=== PATIENT | female | born 1960 | race Caucasian/White ===

== ENCOUNTER → 2019-09-14 13:20 | Outpatient (BNVA) | payer MEDICARE, MEDICAID, SELFPAY | PROVIDERS: Family Provider Family Medicine; PCP Family Medicine; Visit Provider Psychiatry & Neurology Psychiatry | DX: F41.1 Generalized anxiety disorder (principal); F33.2 Major depressive disorder, recurrent severe without psychotic features; F43.12 Post-traumatic stress disorder, chronic; F12.10 Cannabis abuse, uncomplicated | CPT/HCPCS: 99204 ==

== ENCOUNTER → 2019-10-20 11:41 | Outpatient (BNVA) | payer MEDICARE, MEDICAID, SELFPAY | PROVIDERS: Family Provider Family Medicine; PCP Family Medicine; Visit Provider Psychiatry & Neurology Psychiatry | DX: F12.10 Cannabis abuse, uncomplicated (principal); F43.12 Post-traumatic stress disorder, chronic; F33.2 Major depressive disorder, recurrent severe without psychotic features; F41.1 Generalized anxiety disorder | CPT/HCPCS: 99213 ==

== ENCOUNTER 2019-12-27 16:30 | Emergency (ER) | payer MEDICARE, MEDICAID, SELFPAY ==
[2019-12-27 16:39] VITALS: BP 122/72; PULSE 97; RESP 18; TEMP 36.5; O2SAT 96; BMI 36.3
--- NOTE | 2019-12-27 16:44 | W.ED.BACK ---
HPI - Back Pain/Injury General: Chief Complaint: Back Pain/Injury Stated Complaint: fell 12/25,back pain Time Seen by Provider: 12/27/19 16:39 History of Present Illness: HPI Narrative: Lauren is a 59-year-old female who comes in complaining of low back pain. She fell several feet down onto their low back. She has complaints of pain along the lower lumbar spine. There is no radiation of her pain, distal numbness or weakness or saddle anesthesia. She denies loss of bowel or bladder control. She states that the pain is unbearable. She denies being on blood thinners, head injury, neck injury or other complaints. She does states she has a history of severe back pain and degenerative disc disease. Associated symptoms: Deny abdominal pain, chills, difficulty walking, dysuria, fatigue, fever(s), hematuria, nausea, syncope, urinary urgency or vomiting Review of Systems Const: Denies: fever(s), chills, body aches, fatigue, malaise or diaphoresis Eyes: Denies: change in vision, blurry vision, blind spots or photophobia ENMT: Denies: throat pain, odynophagia, hoarseness, swelling of lips/tongue, ear or mastoid pain, ear discharge, change in hearing or nasal discharge Card: Denies: chest pain, palpitations, irregular heart rhythm, edema, lightheadedness, syncope, pre-syncope, dyspnea on exertion or orthopnea Resp: Denies: dyspnea, productive cough, non-productive cough, wheezing, hemoptysis or chest congestion GI: Denies: abdominal pain, nausea, vomiting, hematemesis, coffee ground emesis, heartburn, diarrhea, constipation, GI cramping, hematochezia or melena : Denies: flank pain, dysuria, urinary frequency, urinary urgency or hematuria Musc: Reports: back pain; Denies: neck pain, extremity pain, extremity swelling, joint pain, joint swelling, joint redness, joint warmth or joint stiffness Skin/Breast: Denies: rash, pruritus, erythema, skin tenderness or jaundice Neuro: Denies: headache(s), numbness in extremities, weakness in extremities, sensory changes, lack of coordination, difficulty walking, dizziness, vertigo, confusion or Slurred speech present Jamel/Lymph: Denies: easy bruising, easy bleeding, petechiae, purpura or enlarged lymph nodes All/Imm: Denies: urticaria, throat swelling, tongue swelling, facial swelling or acute wheezing PFSH ED PFSH: Medical History Cannabis use disorder, mild, abuse Degenerative disc disease Generalized anxiety disorder Major depressive disorder, recurrent severe without psychotic features Post-traumatic stress disorder, chronic Social History Smoking and tobacco status: current every day smoker cigarettes Packs smoked per day: 1 Years cigarettes smoked: 25 Quit status (tobacco): has tried quititng Number of times tried to quit tobacco: 1 Second hand smoke exposure: Yes Smoking risk assessment/counseling performed?: Yes Tobacco counseling given: counseling >3 minutes Current gender identity: Female Physical Exam Const: COMMON NORMALS: no acute distress, patient oriented x3, no limitations, healthy appearing and well nourished GENERAL APPEARANCE: cooperative, well kempt and well developed HENMT: COMMON NORMALS: normocephalic, atraumatic, external ears normal, EAC's normal and Normal external nose present HEAD & SCALP: normal to inspection, normocephalic and atraumatic FACE & SINUS: normal facial exam and face symmetric NOSE: Normal external nose present and Normal nares present EXTERNAL EAR: Yes external ears normal EXTERNAL AUDITORY CANAL: EAC's normal MOUTH: Normal oral and palatal mucosa present, lip normal and tongue normal Eye: COMMON NORMALS: Equal, round and reactive pupils present and conjunctivae normal GENERAL EYE: appearance normal, both eyes and all related structures ALIGNMENT: Yes alignment normal PERIORBITAL: periorbital findings normal EYELID: eyelids normal CONJUNCTIVA: Yes conjunctivae normal SCLERA: sclerae normal PUPIL: Yes Equal, round and reactive pupils present Neck/C-Spine: COMMON NORMALS: full ROM, no lymphadenopathy, supple, no meningeal signs and no JVD GENERAL: Yes normal visual inspection and Yes trachea midline Chest: COMMONS NORMALS: normal inspection of the chest and normal palpation of entire chest wall Resp: COMMON NORMALS: normal respiratory effort, No retractions and No use of accessory muscles EFFORT & INSPECTION: Yes able to speak in complete sentences and Yes symmetric chest movement AUSCULTATION: no crackles, no rales, no rhonchi and no wheezes Cardio: COMMON NORMALS: no JVD, regular rate, regular rhythm, S1 normal heart sound present and S2 normal heart sound present RATE: regular rate RHYTHM: regular rhythm HEART SOUNDS: S1 normal heart sound present, S2 normal heart sound present, no click, no gallops, no murmurs, no rubs and abnormal split S2 GI: COMMON NORMALS: Soft to palpation and No hepatosplenomegaly present PALPATION: Yes Soft to palpation, No Tenderness to palpation present (GI), No Guarding due to palpation present (GI), No Rigid due to palpation, Yes No hepatosplenomegaly present, No Hernia present, No Palpable mass present and No Pulsatile mass present : COMMON NORMALS: Yes no CVA tenderness BLADDER/KIDNEY EXAM: Yes no CVA tenderness EXTERNAL FEMALE EXAM: No Hernia present Back/Pelvis: COMMON NORMALS: no CVA tenderness THORACIC SPINE/UPPER BACK: Yes normal to inspection LUMBAR SPINE/LOWER BACK: Yes ROM limited, Yes paraspinal muscle tenderness and Yes paraspinal muscle spasm OTHER: Mild tenderness to palpation of the lower lumbar spine. Normal deep tendon reflexes at the knee and ankle. No clonus present. Negative straight raise leg test bilaterally. Negative contralateral straight leg raising test. Muscle strength 5 out of 5 to bilateral lower extremities at all joints. Patient able to ambulate without difficulty. Extremity: COMMON NORMALS: normal to inspection, full ROM, capillary refill normal, no joint enlargement, no clubbing, cyanosis or edema and no calf tenderness Neuro: COMMON NORMALS: patient oriented x3, CN's II-XII intact bilaterally, moves all extremities, no focal motor deficits and no sensory deficits noted MENINGEAL SIGNS: Yes no meningeal signs SPEECH: speech normal Psych: COMMON NORMALS: mental status grossly normal, Normal thought process present, cooperative, normal affect, speech normal and activity/motor behavior normal APPEARANCE: Yes well kempt SPEECH: Yes normal speech THOUGHT PROCESS: Normal thought process present Skin: COMMON NORMALS: no rashes or lesions noted, turgor normal, no jaundice, no petechiae and no mottling GENERAL SKIN EXAM: no rashes or lesions noted and turgor normal Course Vital Signs: Vital signs: Vital Signs Temperature 97.7 F 12/27/19 16:39 Pulse Rate 75 12/27/19 18:13 Respiratory Rate 18 12/27/19 18:13 Blood Pressure 104/63 12/27/19 18:13 Pulse Oximetry 95 12/27/19 18:13 MDM - Back Pain/Injury MDM Narrative: Medical decision making narrative: Lauren is a nice 59-year-old female who comes in complaining of low back pain after she slipped and fell and landed on her bottom. From further description of the fall it sounds more like a twisting straining type injury rather than a true contusion. Nonetheless CT reveals no evidence of compression fracture or any acute fracture. She does have degenerative changes but nothing acute. On palpation the patient's primary pain is in the bilateral paralumbar spinal musculature. She has no focal point tenderness in the midline. I see no sign of CRAFTI as a cause for her symptoms. Patient agrees to take pain medicine and muscle relaxers at home for her pain. She agrees to return should her symptoms change or worsen at all. I did advise her not to take her tizanidine while she was taking Flexeril and she verbalized her understanding. Imaging Data^: CT Lumbar Spine: Radiologist's impression: [place] [address] CT Scan Report Signed Patient: Lauren Espinoza Unit #: [id number] : 1960 Age/Sex: 59 / F ADM Date: 12/27/19 Loc: ER Room/Bed: Attending Dr: Ordering Provider/Ordering MD: Mireya Vanessa DO Date of Service: 12/27/19 Procedure(s): CT lumbar spine wo con* [id number] Accession Number(s): [id number] Report Number: [id number] PROCEDURE INFORMATION: Exam: CT Lumbar Spine Without Contrast Exam date and time: 12/27/2019 4:55 PM Age: 59 years old Clinical indication: Injury or trauma; Fall; Initial encounter; Blunt trauma (contusions or hematomas); Injury details: H/o degenerative disc disease; Additional info: Fall/injury TECHNIQUE: Imaging protocol: Computed tomography images of the lumbar spine without contrast. Radiation optimization: All CT scans at this facility use at least one of these dose optimization techniques: automated exposure control; mA and/or kV adjustment per patient size (includes targeted exams where dose is matched to clinical indication); or iterative reconstruction. COMPARISON: CR Lumbar Spine 2-3 views* [id number] 12/19/2018 3:33 PM RADIATION DOSE METRICS: Total DLP: 2521.62 mGy-cm FINDINGS: Vertebrae: No visible fracture, subluxation, or dislocation. Levoscoliosis. Intraosseous cavernous hemangioma L4 vertebral body. Facet arthrosis most advanced self 5/S1 on the left. Discs/Spinal canal/Neural foramina: Degenerative disease and degenerative disc disease with spondylosis deformans most advanced L5/S1 with disc space height loss. No visible herniated nucleus pulposis or significant posterior disc bulge would result in significant central canal stenosis or visible evidence of neural foraminal encroachment. Vasculature: The abdominal aorta is nonaneurysmal but demonstrates moderate arterial sclerotic disease. Soft tissues: Unremarkable. CT/CT lumbar spine wo con* [id number] IMPRESSION: 1. No visible fracture, subluxation, or dislocation. 2. Degenerative disease and degenerative disc disease with spondylosis deformans. 3. Levoscoliosis. Radiation Dose CTDIVOL = (mGy): DLP = 2521.62 (mGy-cm) Dictated By: Osman Thomas Signed By: Osman Thomas Signed Date/Time: 12/27/191723 DD/ 22 Discharge Plan Discharge Patient Disposition: Home, Self-Care Clinical Impression: Strain of lumbar region Qualifiers: Encounter type: initial encounter Qualified Code(s): S39.012A - Strain of muscle, fascia and tendon of lower back, initial encounter Condition: Stable Prescriptions: New cyclobenzaprine 10 mg tablet 10 mg PO TID PRN (Reason: muscle spasm) Qty: 30 RF: 0 [place] 5-325 mg tablet 1 tab PO Q6H PRN (Reason: pain) 5 Days Qty: 8 RF: 0 No Action albuterol sulfate 1.25 mg/3 mL solution for nebulization 1.25 mg INHALATION QID PRN (Reason: Shortness Of Breath) RF: 0 omeprazole magnesium 20 mg tablet,delayed release (DR/EC) 20 mg PO DAILY RF: 0 hydroxyzine HCl 50 mg tablet 50 mg PO TID PRN (Reason: nausea and vomiting) RF: 0 ibuprofen 600 mg tablet 600 mg PO TID PRN (Reason: fever or pain) RF: 0 Flovent HFA 44 mcg/actuation HFA aerosol inhaler 2 puff INHALATION BID RF: 0 gabapentin 600 mg tablet 600 mg PO .Five times daily PRN (Reason: UNKNOWN) RF: 0 duloxetine [Cymbalta] 60 mg capsule,delayed release(DR/EC) 60 mg PO DAILY Qty: 30 RF: 2 lamotrigine 100 mg tablet 100 mg PO DAILY Qty: 30 RF: 2 trazodone 100 mg tablet 300 mg PO .HS Qty: 90 RF: 2 cetirizine 10 mg tablet 10 mg PO DAILY RF: 0 tizanidine 4 mg tablet See Rx Instructions .ROUTE .COMPLEX RF: 0 Ventolin HFA 90 mcg/actuation Hfa Aerosol Inhaler 2 puff INHALATION Q6H PRN (Reason: Shortness Of Breath) RF: 0 Discharge Orders: Discharge Order (Routine); Ordered 12/27/19 Ordered By: Mireya Vanessa Referrals: Alberto Davenport MD [Primary Care Provider] - 1-3 days Discharge Diet: Advance as tolerated Discharge Activity: Increase activity as tolerated Patient Instructions: Low Back Strain (ED) Activity Restrictions/Additional Instructions: Please return to the ER immediately for any of the signs or symptoms listed on your discharge instruction sheets, worsening/changing of your symptoms, you are not getting better as quickly as expected, or for ANY other cause or concerns. Return to the ER for increased pain, loss of bowel or bladder control, fever, vomiting, any new injuries develop, or for any other cause for concern. Do not take your tizanidine while taking Flexeril. The 2 combined can cause significant interactions. Do not resume your tizanidine until your Flexeril has been completed. Discharge Date/Time: 12/27/19 18:18 Coding Level of Care Code ED [employer] for [employer] Fwd Exam Comprehensive
[2019-12-27] MEDS: HYDROcodone-acetaminophen 5-325 mg Tablet 1 TAB PO (16:58)
[2019-12-27] MEDS: ketorolac 60 mg/2 mL INJ IM (18:08)
[2019-12-27 18:13] VITALS: BP 104/63; PULSE 75; RESP 18; O2SAT 95
== END 2019-12-27 18:18 | disposition home or self-care (01) ==
PROVIDERS: Emergency Provider Emergency Medicine; Family Provider Family Medicine; PCP Family Medicine
DX: S39.012A Strain of muscle, fascia and tendon of lower back, initial encounter (principal); W19.XXXA Unspecified fall, initial encounter; F17.210 Nicotine dependence, cigarettes, uncomplicated
CPT/HCPCS: 12345; 72131; 96372; 99281; 99283; J1885

== ENCOUNTER 2020-03-27 11:25 | Emergency (ER) | payer MEDICARE, MEDICAID, SELFPAY ==
[2020-03-27 11:34] VITALS: BP 143/106; PULSE 88; RESP 18; TEMP 36.6; O2SAT 96; BMI 36.7
--- NOTE | 2020-03-27 11:51 | W.ED.BACK ---
HPI - Back Pain/Injury General: Chief Complaint: Back Pain/Injury Stated Complaint: back pain Time Seen by Provider: 03/27/20 11:31 Source: patient Mode of arrival: ambulatory Limitations: no limitations History of Present Illness: MD elicited complaint: back pain Pertinent past history: prior back pain Onset (ago): day(s) (1) Timing: constant and progressively worsening Severity: severe Similar Symptoms Previously: Yes Quality: sharp Location: right lower back and left lower back Radiation: left upper leg and right upper leg Exacerbating factors: sitting upright and walking Relieving factors: none Context: while lifting Associated symptoms: Deny abdominal pain, arthralgias, chills, change in bowel habits, difficulty walking, dysuria, fatigue, fecal incontinence, fever(s), hematuria, myalgias, nausea, numbness, syncope, tingling/numbness/burning, urinary frequency, urinary urgency, vomiting or weakness Treatments prior to arrival: heat therapy and NSAIDS Review of Systems General: Reports: 10 or more systems reviewed and unremarkable except in HPI and below Const: Denies: fever(s), chills or fatigue Eyes: Denies: change in vision or blurry vision ENMT: Denies: throat pain, enlarged tonsils, odynophagia, hoarseness, mouth pain or swelling of lips/tongue Card: Denies: syncope Resp: Denies: dyspnea, productive cough or non-productive cough GI: Denies: abdominal pain, nausea, vomiting, fecal incontinence or change in bowel habits : Denies: dysuria, urinary urgency or hematuria Musc: Reports: back pain; Denies: neck pain or extremity swelling Skin/Breast: Denies: rash, pruritus or erythema Neuro: Denies: difficulty walking Endo: Denies: polyuria, polydipsia or tired all the time PENDING SALE TO [facility] ED PFSH: Medical History Cannabis use disorder, mild, abuse Degenerative disc disease Generalized anxiety disorder Major depressive disorder, recurrent severe without psychotic features Post-traumatic stress disorder, chronic Social History Smoking and tobacco status: current every day smoker cigarettes Packs smoked per day: 1 Years cigarettes smoked: 25 Quit status (tobacco): has tried quititng Number of times tried to quit tobacco: 1 Second hand smoke exposure: Yes Smoking risk assessment/counseling performed?: Yes Tobacco counseling given: counseling >3 minutes Current gender identity: Female Physical Exam Const: COMMON NORMALS: average body habitus, patient oriented x3, no limitations, healthy appearing, alert and well nourished GENERAL APPEARANCE: in distress HENMT: COMMON NORMALS: normocephalic, atraumatic and moist oral mucous membranes HEAD & SCALP: normocephalic and atraumatic Neck/C-Spine: COMMON NORMALS: no meningeal signs and no JVD Resp: COMMON NORMALS: normal respiratory effort, No retractions, No use of accessory muscles, clear to auscultation bilaterally and percussion normal AUSCULTATION: clear to auscultation bilaterally PERCUSSION: percussion normal Cardio: COMMON NORMALS: no JVD, regular rate, regular rhythm, S1 normal heart sound present, S2 normal heart sound present, No gallops present (Cardio), No clicks present (Cardio), No murmurs present (Cardio), No rub (Cardio) and Peripheral pulses 2+ throughout RATE: regular rate RHYTHM: regular rhythm HEART SOUNDS: S1 normal heart sound present and S2 normal heart sound present PERIPHERAL PULSES: Peripheral pulses 2+ throughout GI: COMMON NORMALS: Normal to inspection, nondistended, normoactive bowel sounds present, Soft to palpation, non-tender, No hepatosplenomegaly present, no masses and no bruits PALPATION: Yes Soft to palpation and Yes No hepatosplenomegaly present Back/Pelvis: SACROILIAC JOINTS: Yes SI joint(s) abnormal SI joint details: tender to palpation (Bilateral) Extremity: COMMON NORMALS: normal to inspection, full ROM, capillary refill normal, no calf tenderness and no pedal edema Neuro: COMMON NORMALS: patient oriented x3 SENSORIUM/ORIENTATION: Yes alert MENINGEAL SIGNS: Yes no meningeal signs Skin: COMMON NORMALS: no rashes or lesions noted, no wounds, turgor normal, no jaundice, no petechiae and no mottling GENERAL SKIN EXAM: no rashes or lesions noted and turgor normal Course Reevaluation(s): Reevaluation #1: Pain resolved she is ready to be discharged home. She will be discharged home with oral steroids and some pain medicine. She is advised to follow-up with her primary care provider. She voiced understanding and is in agreement with the plan. Time: 14:20 Vital Signs: Vital signs: Vital Signs Temperature 97.8 F 03/27/20 11:34 Pulse Rate 81 03/27/20 14:44 Respiratory Rate 18 03/27/20 14:44 Blood Pressure 138/92 03/27/20 14:44 Pulse Oximetry 96 03/27/20 14:44 MDM - Back Pain/Injury MDM Narrative: Medical decision making narrative: Patient who presents to the emergency department with clinical features consistent with bilateral sacroiliitis. She obtain significant improvement following Toradol and Norflex injections. She is discharged home with a prescription for oral steroids and some pain medication. Medical Records: Attestation: I reviewed the patient's medical records. Discharge Plan Discharge Patient Disposition: Home Clinical Impression: Bilateral sacroiliitis Condition: Stable Prescriptions: New [place] 5-325 mg tablet 1 tab PO Q8H PRN (Reason: pain) Qty: 12 RF: 0 prednisone 20 mg tablet 40 mg PO DAILY 5 Days Qty: 10 RF: 0 Continued albuterol sulfate 1.25 mg/3 mL solution for nebulization 1.25 mg INHALATION QID PRN (Reason: Shortness Of Breath) RF: 0 omeprazole magnesium 20 mg tablet,delayed release (DR/EC) 20 mg PO DAILY RF: 0 hydroxyzine HCl 50 mg tablet 50 mg PO TID PRN (Reason: nausea and vomiting) RF: 0 ibuprofen 600 mg tablet 600 mg PO TID PRN (Reason: fever or pain) RF: 0 Flovent HFA 44 mcg/actuation HFA aerosol inhaler 2 puff INHALATION BID RF: 0 gabapentin 600 mg tablet 600 mg PO .Five times daily PRN (Reason: UNKNOWN) RF: 0 duloxetine [Cymbalta] 60 mg capsule,delayed release(DR/EC) 60 mg PO DAILY Qty: 30 RF: 2 lamotrigine 100 mg tablet 100 mg PO DAILY Qty: 30 RF: 2 trazodone 100 mg tablet 300 mg PO .HS Qty: 90 RF: 2 cetirizine 10 mg tablet 10 mg PO DAILY RF: 0 tizanidine 4 mg tablet See Rx Instructions .ROUTE .COMPLEX RF: 0 Ventolin HFA 90 mcg/actuation Hfa Aerosol Inhaler 2 puff INHALATION Q6H PRN (Reason: Shortness Of Breath) RF: 0 cyclobenzaprine 10 mg tablet 10 mg PO TID PRN (Reason: muscle spasm) Qty: 30 RF: 0 Discharge Orders: Discharge Order (Routine); Ordered 03/27/20 Ordered By: Musa Strong Referrals: Alberto Davenport MD [Primary Care Provider] - 4-7 days Discharge Diet: Usual diet Discharge Activity: Increase activity as tolerated Patient Instructions: Sacroiliitis (ED) Activity Restrictions/Additional Instructions: Return for any new or worsening symptoms. Follow-up with your primary care provider within 1 week. Take medications as prescribed. Rest your back for 1 or 2 days before gradually returning to your prior level of activity. Discharge Date/Time: 03/27/20 14:44 Coding Level of Care Code ED Press Feeder [employer] for Chg Fwd Exam Comprehensive
[2020-03-27 12:26] VITALS: PULSE 79; RESP 18; O2SAT 97
[2020-03-27] MEDS: ketorolac 30 mg/mL INJ IM (12:29)
[2020-03-27] MEDS: orphenadrine 30 mg/mL Inj 2 mL 60 MG IM (12:30)
[2020-03-27 14:44] VITALS: BP 138/92; PULSE 81; RESP 18; O2SAT 96
== END 2020-03-27 14:44 | disposition home or self-care (01) ==
PROVIDERS: Emergency Provider Family Medicine; PCP Family Medicine
DX: M46.1 Sacroiliitis, not elsewhere classified (principal); F17.210 Nicotine dependence, cigarettes, uncomplicated
CPT/HCPCS: 12345; 96372; 99282; 99283; J1885; J2360

== ENCOUNTER 2020-04-28 12:29 | Outpatient (CLI) | payer MEDICARE, MEDICAID, SELFPAY ==
--- NOTE | 2020-04-28 13:06 | XR_ITS ---
WS: [id number] LATERAL LUMBAR SPINE: 3 view. Lateral radiographs are performed in upright neutral, flexion and extension to the patient's toleranc e. HISTORY: Spondylolisthesis. COMPARISON: None available. Straightening of the normal lumbar lordosis. 2 mm retrolisthesis of L4. No fractures. Mild disc space narrowing. With flexion and extension is very little movement of the vertebral bodies. Multilevel mi ld facet joint arthritis. Osteopenia. Prior cholecystectomy. XR/XR lumbar spine f/e only [id number] IMPRESSION: 1. Mild retrolisthesis of L4 with no instability. 2. Diffuse osteopenia and moderate spondylitic changes.
== END 2020-04-28 12:30 | disposition home or self-care (01) ==
LOC: RADWPI 12:34
PROVIDERS: PCP Family Medicine; Visit Provider Nurse Practitioner
DX: M43.16 Spondylolisthesis, lumbar region (principal); M85.88 Other specified disorders of bone density and structure, other site
CPT/HCPCS: 72120

== ENCOUNTER 2021-11-18 18:37 | Emergency (ER) | payer MEDICARE, MEDICAID, SELFPAY ==
[2021-11-18 18:48] VITALS: BP 128/79; PULSE 80; RESP 20; TEMP 36.7; O2SAT 94; BMI 36.7
--- NOTE | 2021-11-18 19:17 | CTR_ITS ---
PROCEDURE INFORMATION: Exam: CT Lumbar Spine Without Contrast Exam date and time: 11/18/2021 7:49 PM Age: 61 years old Clinical indication: Low back pain; Additional info: Lumbar back pain w/ pain in left leg. Left leg weakness TECHNIQUE: Imaging protocol: Computed tomography images of the lumbar spine without contrast. Radiation optimization: All CT scans at this facility use at least one of these dose optimization techniques: automated exposure control; mA and/or kV adjustment per patient size (includes targeted exams where dose is matched to clinical indication); or iterative reconstruction. COMPARISON: CT lumbar spine wo con* [id number] 12/27/2019 4:56 PM RADIATION DOSE METRICS: Total DLP (mGy-cm): 2020. FINDINGS: Vertebrae: L4 vertebral body hemangioma appears benign. L1-L2: L1-L2 small broad-based disc bulge with minimal spinal canal narrowing. L2-L3: L2-L3 small broad-based disc bulge with minimal spinal canal and bilateral foraminal narrowing. L3-L4: L3-L4 small broad-based disc bulge with mild spinal canal and bilateral foraminal narrowing L4-L5: L4-L5 broad-based disc bulge with moderate to severe spinal canal and bilateral foraminal narrowing. L5-S1: L5/S1 broad-based disc bulge with mild bilateral foraminal narrowing. Soft tissues: Unremarkable. CT/CT lumbar spine wo con* [id number] IMPRESSION: Multilevel degenerative disc space disease with varying amounts of spinal canal and neural foraminal narrowing as described.
--- NOTE | 2021-11-18 19:18 | W.ED.BACK ---
HPI - Back Pain/Injury General: Chief Complaint: Back Pain/Injury Stated Complaint: back pain Time Seen by Provider: 11/18/21 18:59 History of Present Illness: Patient is a 61-year-old female comes to the ED with acute on chronic lower back pain. Patient says that 3 days ago she was cleaning up a mess her cat made on the floor. She was bending over and scraping up stuff off the floor says she felt a sharp pain in her lower back. Since then she is now having 9 out of 10 pain in the lower back. Pain radiates down left leg. She endorses having some mild left leg weakness mostly due to the pain. Denies any pelvic anesthesia or bladder or bowel incontinence. Patient sees Dr. Davenport and he is currently trying to get her set up with pain management clinic to help manage her chronic lower back pain. Associated symptoms: Deny abdominal pain, chills, dysuria, fatigue, fever(s), hematuria, nausea or vomiting Review of Systems Const: Denies: fever(s), chills or fatigue Eyes: Denies: change in vision or eye discomfort ENMT: Denies: throat pain, odynophagia, nasal discharge or nasal congestion Card: Denies: chest pain, palpitations, edema, swelling of feet/ankles, dyspnea on exertion or orthopnea Resp: Denies: dyspnea, productive cough or non-productive cough GI: Denies: abdominal pain, nausea, vomiting, diarrhea, constipation or hematochezia : Denies: flank pain, dysuria or hematuria Musc: Reports: back pain; Denies: neck pain or extremity swelling Skin/Breast: Denies: rash or new lesions Neuro: Denies: headache(s), numbness in extremities or weakness in extremities PFSH ED PFSH: Medical History Cannabis use disorder, mild, abuse Degenerative disc disease Generalized anxiety disorder Major depressive disorder, recurrent severe without psychotic features Post-traumatic stress disorder, chronic Social History Smoking and tobacco status: current every day smoker cigarettes Packs smoked per day: 1 Years cigarettes smoked: 25 Quit status (tobacco): has tried quititng Number of times tried to quit tobacco: 1 Second hand smoke exposure: Yes Smoking risk assessment/counseling performed?: Yes Tobacco counseling given: counseling >3 minutes Current gender identity: Female Physical Exam Const: COMMON NORMALS: no acute distress, patient oriented x3 and alert GENERAL APPEARANCE: cooperative and comfortable HENMT: COMMON NORMALS: normocephalic HEAD & SCALP: normocephalic MOUTH: Normal oral and palatal mucosa present THROAT: posterior oropharynx normal and uvula midline Neck/C-Spine: COMMON NORMALS: supple GENERAL: Yes normal visual inspection Resp: COMMON NORMALS: normal respiratory effort, No retractions, No use of accessory muscles and clear to auscultation bilaterally AUSCULTATION: clear to auscultation bilaterally Cardio: COMMON NORMALS: regular rate, regular rhythm, S1 normal heart sound present, S2 normal heart sound present, No gallops present (Cardio), No clicks present (Cardio), No murmurs present (Cardio) and Peripheral pulses 2+ throughout RATE: regular rate RHYTHM: regular rhythm HEART SOUNDS: S1 normal heart sound present and S2 normal heart sound present PERIPHERAL PULSES: Peripheral pulses 2+ throughout GI: COMMON NORMALS: Normal to inspection, nondistended, normoactive bowel sounds present, Soft to palpation, non-tender and no masses PALPATION: Yes Soft to palpation : COMMON NORMALS: Yes no CVA tenderness BLADDER/KIDNEY EXAM: Yes no CVA tenderness Back/Pelvis: COMMON NORMALS: no CVA tenderness LUMBAR SPINE/LOWER BACK: Yes lumbar spinal tenderness Lumbar spinal tenderness location: L4 and L5 and Yes paraspinal muscle tenderness Lumbar paraspinal muscle tenderness: bilateral Bilateral lumbar paraspinal muscle tenderness: L3, L4 and L5 Extremity: COMMON NORMALS: normal to inspection and no pedal edema Neuro: COMMON NORMALS: patient oriented x3 and moves all extremities SENSORIUM/ORIENTATION: Yes alert Skin: GENERAL SKIN EXAM: dry skin Course Vital Signs: Vital signs: Vital Signs Temperature 98.1 F 11/18/21 18:48 Pulse Rate 72 11/18/21 20:49 Respiratory Rate 18 11/18/21 20:49 Blood Pressure 128/78 11/18/21 20:49 Pulse Oximetry 96 11/18/21 20:49 MDM - Back Pain/Injury Medical Decision Making Patient is a 61-year-old female comes to the ED with lower back pain that radiates down left leg. Patient has a history of degenerative disc disease. Endorses having a little bit of left leg weakness due to pain. Denies any bladder or bowel incontinence or pelvic anesthesia. Vitals are stable. Patient appears nontoxic in no acute distress or pain. She has some lumbar spinal tenderness around L4 and L5 along with lumbar paraspinal muscle tenderness bilaterally from L3-L5. CT of lumbar spine showed multilevel degenerative disc space disease with varying spinal canal and neural foraminal narrowing. I placed an order with case management for patient to be referred to Dr. Cabral for further evaluation of degenerative disc disease and lumbar spine. Patient was given dose of morphine, steroid and muscle relaxer here in the ED to help with symptoms. She was diagnosed with degenerative disc disease in the lumbar spine and was discharged home with a prescription for muscle relaxer, steroid and meloxicam for pain. Return to ED precautions given. Patient was told case management will contact them in the next several days set up an appoint with Dr. Cabral for further evaluation of lumbar pain. Patient understood and agreed with plan. Labs Radiology Impressions Lumbar Spine CT 11/18/21 19:17 IMPRESSION: Multilevel degenerative disc space disease with varying amounts of spinal canal and neural foraminal narrowing as described. Discharge Plan Discharge Patient Disposition: Home Clinical Impression: Degenerative disc disease Qualifiers: Spinal region: lumbar Qualified Code(s): M51.36 - Other intervertebral disc degeneration, lumbar region Condition: Stable Prescriptions: New meloxicam 15 mg tablet 15 mg PO DAILY Qty: 20 0RF methocarbamol 750 mg tablet 750 mg PO Q8H PRN (Reason: Muscle spasms and pain) Qty: 20 0RF prednisone 20 mg tablet 20 mg PO BID 5 Days Qty: 10 0RF No Action albuterol sulfate 1.25 mg/3 mL solution for nebulization 1.25 mg INHALATION QID PRN (Reason: Shortness Of Breath) 0RF omeprazole magnesium 20 mg tablet,delayed release (DR/EC) 20 mg PO DAILY 0RF hydroxyzine HCl 50 mg tablet 50 mg PO TID PRN (Reason: nausea and vomiting) 0RF ibuprofen 600 mg tablet 600 mg PO TID PRN (Reason: fever or pain) 0RF Flovent HFA 44 mcg/actuation HFA aerosol inhaler 2 puff INHALATION BID 0RF gabapentin 600 mg tablet 600 mg PO .Five times daily PRN (Reason: UNKNOWN) 0RF duloxetine [Cymbalta] 60 mg capsule,delayed release(DR/EC) 60 mg PO DAILY Qty: 30 2RF lamotrigine 100 mg tablet 100 mg PO DAILY Qty: 30 2RF trazodone 100 mg tablet 300 mg PO .HS Qty: 90 2RF cetirizine 10 mg tablet 10 mg PO DAILY 0RF tizanidine 4 mg tablet See Rx Instructions .ROUTE .COMPLEX 0RF Rx Instructions: 4 mg orally TAKE 1 AND 1/2 TAB TID PRN FOR MUSCLE SPASMS. Ventolin HFA 90 mcg/actuation Hfa Aerosol Inhaler 2 puff INHALATION Q6H PRN (Reason: Shortness Of Breath) 0RF cyclobenzaprine 10 mg tablet 10 mg PO TID PRN (Reason: muscle spasm) Qty: 30 0RF [place] 5-325 mg tablet 1 tab PO Q8H PRN (Reason: pain) Qty: 12 0RF Discharge Orders: Discharge ED (Routine); Ordered 11/18/21 Ordered By: Michel Power Referrals: Alberto Davenport MD [Primary Care Provider] - Discharge Diet: Regular Discharge Activity: Increase activity as tolerated Patient Instructions: Degenerative Disc Disease (ED) Activity Restrictions/Additional Instructions: Follow-up with medical provider as directed. Case management will be contacted in the next several days set up an appointment with Dr. Cabral the orthospine specialist for follow-up. Take medications as prescribed. Meloxicam can be taken instead of your ibuprofen but do not take both medications daily. Methocarbamol is a muscle relaxer and can cause some drowsiness so take at night before going to bed. Return to the ER or your medical provider if condition worsens. Please read and understand discharge instructions. Thank you for choosing [facility] for your healthcare needs today. Please realize this is an emergency room and that we are providing you with a medical screening exam and this may not be complete and all inclusive of all the testing and or work up that you may need to determine your ailment or severity of your illness. It is very important that you follow up as instructed or that you return to the Emergency Department should you have concerns or if your condition changes or worsens in any way. Coding Level of Care Code ED Cyber Incident Handler for Evangelista Gallagher Exam Comprehensive
[2021-11-18] MEDS: morphine 4 mg/mL SDV 1 mL IM (19:36)
[2021-11-18] MEDS: orphenadrine 30 mg/mL Inj 2 mL 60 MG IM (19:36)
[2021-11-18] MEDS: dexamethasone 10 mg/mL INJ IM (19:36)
[2021-11-18 20:28] VITALS: BP 125/81; PULSE 67; RESP 16; O2SAT 95
[2021-11-18 20:49] VITALS: BP 128/78; PULSE 72; RESP 18; O2SAT 96
--- NOTE | 2021-11-19 14:15 | DCPLANNER ---
Addendum entered by Yoli Kulkarni 11/22/21 16:23: Patient had a follow up appointment scheduled with ortho - patient did attend appointment. Original Note: branch services manager had message to schedule a follow up appointment for patient with ortho. branch services manager sent patients information to the front office staff at ortho. Patients information will be printed and reviewed. Clinic will call patient with appointment information.
== END 2021-11-18 20:52 | disposition home or self-care (01) ==
PROVIDERS: Emergency Provider Physician Assistant; PCP Family Medicine
DX: M51.36 Other intervertebral disc degeneration, lumbar region (principal); F17.210 Nicotine dependence, cigarettes, uncomplicated
CPT/HCPCS: 72131; 96372; 99283; J1100; J2270; J2360

== ENCOUNTER → 2021-11-22 10:56 | Outpatient (BNVA) | payer MEDICARE, MEDICAID, SELFPAY | PROVIDERS: PCP Family Medicine; Referring Provider Physician Assistant; Visit Provider Physician Assistant | DX: M47.26 Other spondylosis with radiculopathy, lumbar region (principal); M51.36 Other intervertebral disc degeneration, lumbar region | CPT/HCPCS: 72110; 99204; 99999 ==

== ENCOUNTER 2022-01-25 13:07 | Outpatient (CLI) | payer MEDICARE, MEDICAID, SELFPAY ==
--- NOTE | 2022-01-25 | MR_ITS ---
WS: [id number] MRI LUMBAR SPINE NONCONTRAST HISTORY: Low back pain down LEFT leg. COMPARISON: 12/14/2015 TECHNIQUE: Sagittal and axial multisequence imaging is submitted. T4 hemangioma. Mild straightening and LEFT curvature of the lumbar spine. Fatty marrow replacement involving the end plates of L3 and L4. No fracture. Disc space narrowing and desiccation throughout the lumbar spine. Conus terminates normally at L1-2 disc level. L1-L2: Diffuse annular disc bulge with a central disc protrusion and mild osteophytosis. Encroachment upon the ventral thecal sac slightly progressed since the prior study. Mild foraminal narrowing. L2-L3: Diffuse annular disc bulging with mild ligamentum flavum hypertrophy. RIGHT facet encroachment into the RIGHT subarticular recess. Mild stenosis the RIGHT subarticular recess and bilateral forami na. Progressed since the prior study. L3-L4: Diffuse annular disc bulging with disc and osteophyte encroaching of the thecal sac. Mild cent ral stenosis. RIGHT facet joint arthritis encroaching into the RIGHT thecal sac and subarticular rece ss. Moderate RIGHT subarticular recess stenosis and encroachment upon the exiting L4 nerve root. Mild central and bilateral foraminal stenosis. L4-L5: Diffuse asymmetric disc bulging and mild osteophytic ridging. Broad-based disc protrusion cent ral to LEFT paracentral and into the foramen. Encroachment upon the thecal sac and subarticular reces ses. Moderate central and bilateral subarticular recess stenosis. Greater encroachment into the LEFT lateral recess. Moderate facet joint arthritis contributing to the stenosis. Moderate to severe LEFT and mild RIGHT foraminal stenosis. Progression of stenosis since the prior study. L5-S1: Mild disc bulging. Asymmetric disc bulging to the LEFT. Moderate to severe LEFT foraminal sten osis due to asymmetric disc bulging. Disc contacts the exiting LEFT L5 nerve root. Paravertebral soft tissues are normal. MR/MR lumbar spine wo con* [id number] IMPRESSION: 1. Progression of degenerative LEFT scoliosis and degenerative disc disease an d facet arthritis since 12/14/2015. 2. Moderate central and bilateral subarticular recess stenosis at L4-5 with gr eater encroachment into the LEFT lateral recess. Moderate to severe LEFT and mi ld RIGHT foraminal stenosis at L4-5. Significant encroachment upon the traversi ng L5 nerve roots but greatest on the LEFT. 3. Moderate RIGHT subarticular recess stenosis at L3-4 with encroachment upon the exiting L4 nerve root. 4. Mild central and bilateral foraminal stenosis at L3-4. 5. Moderate to severe LEFT foraminal stenosis at L5-S1 with disc contacting th e exiting LEFT L5 nerve root. 6. Facet joint arthropathy encroaching into the RIGHT subarticular recess at L 2-3 causing a mild stenosis of the RIGHT subarticular recess and RIGHT foramen.
== END 2022-01-25 13:08 | disposition home or self-care (01) ==
PROVIDERS: PCP Family Medicine; Visit Provider Physician Assistant
DX: M48.061 Spinal stenosis, lumbar region without neurogenic claudication (principal)
CPT/HCPCS: 72148

== ENCOUNTER → 2022-01-31 14:01 | Outpatient (BNVA) | payer MEDICARE, MEDICAID, SELFPAY | PROVIDERS: PCP Family Medicine; Visit Provider Physician Assistant | DX: M51.36 Other intervertebral disc degeneration, lumbar region (principal); M47.26 Other spondylosis with radiculopathy, lumbar region; M48.062 Spinal stenosis, lumbar region with neurogenic claudication | CPT/HCPCS: 99213 ==

== ENCOUNTER → 2022-03-05 09:45 | Outpatient (BNVA) | payer MEDICARE, MEDICAID, SELFPAY | PROVIDERS: PCP Family Medicine; Visit Provider Anesthesiology Pain Medicine | DX: M48.062 Spinal stenosis, lumbar region with neurogenic claudication (principal); M51.36 Other intervertebral disc degeneration, lumbar region; M47.26 Other spondylosis with radiculopathy, lumbar region; M47.816 Spondylosis without myelopathy or radiculopathy, lumbar region; M79.604 Pain in right leg; M79.605 Pain in left leg; M41.9 Scoliosis, unspecified; F17.210 Nicotine dependence, cigarettes, uncomplicated; Z79.891 Long term (current) use of opiate analgesic | CPT/HCPCS: 99205 ==

== ENCOUNTER → 2022-03-20 13:46 | Outpatient (BNVA) | payer MEDICARE, MEDICAID, SELFPAY | PROVIDERS: PCP Family Medicine; Visit Provider Anesthesiology Pain Medicine | DX: M48.062 Spinal stenosis, lumbar region with neurogenic claudication (principal); F17.210 Nicotine dependence, cigarettes, uncomplicated; M54.16 Radiculopathy, lumbar region | CPT/HCPCS: 64483; 64484 ==

== ENCOUNTER → 2022-04-04 13:46 | Outpatient (BNVA) | payer MEDICARE, MEDICAID, SELFPAY | PROVIDERS: PCP Family Medicine; Visit Provider Anesthesiology Pain Medicine | DX: M54.16 Radiculopathy, lumbar region (principal); M48.062 Spinal stenosis, lumbar region with neurogenic claudication; F17.210 Nicotine dependence, cigarettes, uncomplicated | CPT/HCPCS: 64483; 64484; J1100; J3490 ==

== ENCOUNTER → 2022-04-16 08:28 | Outpatient (BNVA) | payer MEDICARE, MEDICAID, SELFPAY | PROVIDERS: PCP Family Medicine; Visit Provider Anesthesiology Pain Medicine | DX: M48.062 Spinal stenosis, lumbar region with neurogenic claudication (principal); M51.36 Other intervertebral disc degeneration, lumbar region; M47.26 Other spondylosis with radiculopathy, lumbar region; M41.9 Scoliosis, unspecified; M47.816 Spondylosis without myelopathy or radiculopathy, lumbar region; M79.604 Pain in right leg; M79.605 Pain in left leg; F17.210 Nicotine dependence, cigarettes, uncomplicated | CPT/HCPCS: 99213 ==

== ENCOUNTER → 2022-06-04 14:01 | Outpatient (BNVA) | payer MEDICARE, MEDICAID, SELFPAY | PROVIDERS: PCP Family Medicine; Visit Provider Physician Assistant | DX: M48.062 Spinal stenosis, lumbar region with neurogenic claudication (principal); M41.9 Scoliosis, unspecified; M51.36 Other intervertebral disc degeneration, lumbar region | CPT/HCPCS: 99214 ==

== ENCOUNTER 2022-07-05 06:43 | Outpatient (CLI) | payer MEDICARE, MEDICAID, SELFPAY ==
--- NOTE | 2022-07-05 | USCV_ITS ---
Transthoracic Echo Lauren Espinoza Age: 62 Gender: F : 1960 Exam Date: 07/05/2022 07:02 Ordering Phys: Alberto Davenport MD Technologist: Mikayla Lama Exam Location: [facility] [place] Indication: Heart Murmur BP: 168 / 80 HR: 72 Rhythm: Sinus Technical Quality: Adequate MEASUREMENTS (Male / Female) Normal Values 2D ECHO LV Diastolic Diameter PLAX 5.2 cm 4.2 - 5.9 / 3.9 - 5.3 cm LV Systolic Diameter PLAX 4.0 cm LV Chamber Size 5.2 cm IVS Diastolic Thickness 0.9 cm 0.6 - 1.0 / 0.6 - 0.9 cm IVS Systolic Thickness 1.7 cm LVPW Diastolic Thickness 1.5 cm 0.6 - 1.0 / 0.6 - 0.9 cm LVPW Systolic Thickness 1.8 cm RV Chamber Size 3.1 cm LVOT Diameter 2.0 cm LV Ejection Fraction 2D Teich 36.8 % LV Ejection Fraction MOD 2C 61.8 % LV Ejection Fraction 2C AL 61.2 % LA Diameter 2.9 cm LA Width 2.4 cm LA Height 3.0 cm RA Width 3.2 cm Aorta at Sinotubular Diameter 3.1 cm IVC Diameter 1.6 cm M-MODE Aortic Annulus Diameter 3.8 cm LA Ao Ratio MM 0.8 MV E Point Septal Separation 0.4 cm DOPPLER AV Peak Velocity 158.0 cm/s LVOT Peak Velocity 102.0 cm/s AV Area Cont Eq vti 2.5 cm squared AV Area Cont Eq pk 2.1 cm squared MV Area PHT 4.2 cm squared Mitral E to A Ratio 1.2 MV E' Velocity 54.5 cm/s Mitral E to MV E' Ratio 15.4 Mitral E to LV E' Lateral Ratio 16.6 Mitral E to LV E' Septal Ratio 14.3 TR Peak Velocity 219.0 cm/s TR Peak Gradient 19.2 mmHg TR Mean Velocity 176.3 cm/s TR Mean Gradient 12.5 mmHg TR Velocity Time Integral 66.1 cm TV Peak E Velocity 67.0 cm/s Right Atrial Pressure 3.0 mmHg Pulmonary Artery Systolic Pressu 22.2 mmHg PV Peak Velocity 71.0 cm/s RV Acceleration Time 0.2 s RV Ejection Time 0.3 s RV AcT/ET 0.5 FINDINGS Left Ventricle Normal left ventricular size, systolic function and wall thickness, with no regional wall motion abnormalities,mild left ventricular hypertrophy. EF 67 %. Right Ventricle Normal right ventricular size and systolic function. Right Atrium Normal right atrial size. Left Atrium Normal left atrial size. Mitral Valve Structurally normal mitral valve. Trace mitral valve regurgitation. Aortic Valve Structurally bufbjidti-yh-umjialvb aortic valve regurgitation. l trileaflet aortic valve. Mild aortic valve calcification. Tricuspid Valve Structurally normal tricuspid valve. No tricuspid valve regurgitation. Pulmonic Valve Structurally normal pulmonic valve. No pulmonary valve regurgitation. Pericardium No pericardial effusion. Aorta Normal aorta. IVC Normal inferior vena cava. CONCLUSIONS Normal left ventricular size, systolic function and wall thickness, with no regional wall motion abnormalities,mild left ventricular hypertrophy. EF 67 %. Structurally wphgphvya-hg-allmztvl aortic valve regurgitation. l trileaflet aortic valve. Mild aortic valve calcification. Ramiro Fuentes MD (Electronically Signed) Final Date: 05 July 2022 13:12 S
== END 2022-07-05 06:44 | disposition home or self-care (01) ==
PROVIDERS: PCP Family Medicine; Visit Provider Family Medicine
DX: R01.1 Cardiac murmur, unspecified (principal); I35.1 Nonrheumatic aortic (valve) insufficiency
CPT/HCPCS: 93306

== ENCOUNTER 2022-07-08 16:07 | Inpatient (IN) | payer MEDICARE, MEDICAID, SELFPAY ==
[2022-07-05 09:17] VITALS: BMI 35.5
--- NOTE | 2022-07-05 09:22 | ANES.PREANE2 ---
Pre-Anesthetic Assessment Height/Weight: Height 1.52 m Weight 82.554 kg Operation Date: 07/08/22 12:40 Proposed Procedures p Spinal Fusion [id number]/M48.062/M41.9/M51.36/(Not Applicable) - Otto Cabral DO s Lumbar Spine Decompression(Not Applicable) - Otto Cabral, DO Familial anesthetic complications: None Social Tobacco and No alcohol Exam alert, oriented x 3, clear to auscultation bilaterally and regular rate & rhythm Airway Mallampati: Class II Dentition: false and partials Pulmonary Asthma and Sleep Apnea CV/HEM None reported None reported Hepatic None reported GI Gastroesophageal Reflux Disease Metabolic None reported Musc/skel Lower Back Pain Neuropsych None reported Anesthetic Plan ASA status: 3 Anesthesia: General Risk of > 500 ml blood loss (7ml/kg in children): Yes, adequate IV access and fluids planned Medications/Allergies Home Medications Medication Instructions Recorded Confirmed Last Taken Type fluticasone propionate 44 2 puff inhalation BID 09/14/19 07/05/22 07/04/22 History mcg/actuation HFA aerosol inhaler (Flovent HFA) gabapentin 600 mg tablet 600 mg PO .Five times daily PRN 10/19/19 07/05/22 07/05/22 History UNKNOWN duloxetine 60 mg capsule,delayed 60 mg PO DAILY #30 caps 10/20/19 07/05/22 07/05/22 Rx release (Cymbalta) lamotrigine 100 mg tablet 100 mg PO DAILY #30 tabs 10/20/19 07/05/22 07/05/22 Rx albuterol sulfate 90 mcg/actuation 2 puff inhalation Q6H PRN 12/27/19 06/04/22 12/27/19 History aerosol inhaler (Ventolin HFA) Shortness Of Breath tizanidine 4 mg tablet See Rx Instructions .Route .COMPLEX 12/27/19 07/05/22 07/04/22 History methocarbamol 750 mg tablet 750 mg PO Q8H PRN Muscle spasms 11/18/21 07/05/22 07/05/22 Rx and pain #20 tabs meloxicam 15 mg tablet 15 mg PO DAILY #60 tabs 01/01/22 07/05/22 07/05/22 Rx MARIJUANA inhalation 03/05/22 06/04/22 Unknown History hydrocodone 5 mg-acetaminophen 325 1 tab PO Q4H PRN pain 5 days #30 07/01/22 07/05/22 07/05/22 Rx mg tablet tabs brexpiprazole 2 mg tablet (Rexulti) 2 mg PO DAILY 07/05/22 07/05/22 07/05/22 History duloxetine 30 mg capsule,delayed 30 mg PO DAILY 07/05/22 07/05/22 07/05/22 History release montelukast 10 mg tablet 10 mg PO DAILY 07/05/22 07/05/22 07/05/22 History pantoprazole 40 mg tablet,delayed 40 mg PO BID 07/05/22 07/05/22 07/05/22 History release trazodone 100 mg tablet 150 mg PO .HS 07/05/22 07/05/22 07/04/22 History Allergies Allergy/AdvReac Type Severity Reaction Status Date / Time No Known Allergies Allergy Verified 07/05/22 08:56 [facility] Anesthesia Medical History Cannabis use disorder, mild, abuse Degenerative disc disease Generalized anxiety disorder Major depressive disorder, recurrent severe without psychotic features Post-traumatic stress disorder, chronic Social History Smoking and tobacco status: current every day smoker cigarettes Packs smoked per day: 1 Years cigarettes smoked: 25 Quit status (tobacco): has tried quititng Number of times tried to quit tobacco: 1 Smoking risk assessment/counseling performed?: Yes Tobacco counseling given: counseling >3 minutes Alcohol intake: former History of recent travel: No Current gender identity: Female Data Anesthesia Cardiac Studies: No Data to Display
[2022-07-08] VITALS (34 sets, daily range): BP systolic 86–147; BP diastolic 58–104; PULSE 78–115; RESP 13–29; TEMP 36.4–36.6; O2SAT 81–98; BMI 37.5
--- NOTE | 2022-07-08 | XR_ITS ---
WS: [id number] Exam: XR lumbar spine 1V [id number] Date/Time of Exam: 07/08/2022 12:00 AM Reason For Exam: CAR PICS Single lateral intraoperative image of the lower thoracic and lumbar spine depicts multiple pedicle s crews in place. No other significant finding on this limited image.
[2022-07-08] MEDS: sodium chloride 0.9% 1,000 ML 30 ML IV (10:40)
[2022-07-08 10:49] LABS: Basophils % 0.7 %; Eosinophils # 0.1 10^3/uL (0.0-0.8); Eosinophils % 2.5 %; Hematocrit 39.2 % (37.0-47.0); Hemoglobin 12.8 g/dL (11.5-15.3); Lymphocytes # 2.1 10^3/uL (0.8-4.8); Lymphocytes % 37.3 %; Mean Corpuscular HGB Conc 32.7 g/dL (30.0-36.0); Mean Corpuscular Hemoglobin 30.2 pg (28.0-34.0); Mean Corpuscular Volume 92.5 fl (81-99); Mean Platelet Volume 9.3 fL (7.4-10.4); Monocytes # 0.3 10^3/uL (0.2-0.9); Monocytes % 4.7 %; Neutrophils % 54.4 %; Nucleated Red Blood Cells % 0 %; Platelet Count 175 10^3/cmm (130-400); Red Blood Count 4.24 10^6/uL (4.1-5.3); Red Cell Distribution Width 12.6 % (12.1-15.1); White Blood Count 5.7 10^3/uL (4.0-10.0)
--- NOTE | 2022-07-08 11:00 | P.HP_ITS ---
Providers/Chief Complaint Primary Care Provider: Alberto Davenport MD Chief Complaint: Spinal Fusion [id number] History of Present Illness Lauren Espinoza is a 62 year old female She states injections doesn't seem to be helping, she only get a weeks worth of relief. She rates her pain the first week 0/10 then she goes back to 10/10. She has stabbing radiating down bilateral legs. More left than right. She states she does her stretches at home. She had an MRI of her lumbar 01/25/22. She had a CT in November of this year.? Patient states due to the pain she has been unable to walk any distance her activity levels have decreased significantly due to the pain in her back and legs.? She rates her pain today at an 8/10.? Reports both legs are bothering her equally in addition to her low back.? She denies any loss of bowel or bladder control. Review of Systems Const: Denies: fever(s), chills, body aches, fatigue or change in sleep pattern Eyes: Denies: change in vision Musc: Reports: neck pain, back pain and limited range of motion; Denies: extremity pain, extremity swelling, joint pain or joint swelling Neuro: Reports: numbness in extremities; Denies: headache(s) or difficulty walking Medications/Allergies Home Medications Medication Instructions Recorded Confirmed Last Taken Type fluticasone propionate 44 2 puff inhalation BID 09/14/19 07/08/22 07/07/22 Hist ory mcg/actuation HFA aerosol inhaler (Flovent HFA) gabapentin 600 mg tablet 600 mg PO .Five times daily PRN 10/19/19 07/08/22 07/08/22 History UNKNOWN duloxetine 60 mg capsule,delayed 60 mg PO DAILY #30 caps 10/20/19 07/08/22 07/08/22 Rx release (Cymbalta) lamotrigine 100 mg tablet 100 mg PO DAILY #30 tabs 10/20/19 07/08/22 07/07/22 Rx tizanidine 4 mg tablet See Rx Instructions .Route .COMPLEX 12/27/19 07/08/22 07/08/22 History methocarbamol 750 mg tablet 750 mg PO Q8H PRN Muscle spasms 11/18/21 07/08/22 07/08/22 Rx and pain #20 tabs meloxicam 15 mg tablet 15 mg PO DAILY #60 tabs 01/01/22 07/08/22 07/08/22 Rx MARIJUANA See Rx Instructions .Route .COMPLEX 03/05/22 06/04/22 07/07/22 History hydrocodone 5 mg-acetaminophen 325 1 tab PO Q4H PRN pain 5 days #30 07/01/22 07/08/22 07/07/22 Rx mg tablet tabs Intraoperative Neuromonitoring #1 ea 07/05/22 07/08/22 Unknown Rx brexpiprazole 2 mg tablet (Rexulti) 2 mg PO DAILY 07/05/22 07/08/22 07/08/22 History duloxetine 30 mg capsule,delayed 30 mg PO DAILY 07/05/22 07/08/22 07/07/22 Hist ory release montelukast 10 mg tablet 10 mg PO DAILY 07/05/22 07/08/22 07/08/22 History pantoprazole 40 mg tablet,delayed 40 mg PO BID 07/05/22 07/08/22 07/08/22 History release trazodone 100 mg tablet 150 mg PO .HS 07/05/22 07/08/22 07/07/22 History Allergies Allergy/AdvReac Type Severity Reaction Status Date / Time No Known Allergies Allergy Verified 07/08/22 10:15 PFSH Acute PFSH: Medical History Cannabis use disorder, mild, abuse Degenerative disc disease Generalized anxiety disorder Major depressive disorder, recurrent severe without psychotic features Post-traumatic stress disorder, chronic Social History Smoking and tobacco status: current every day smoker cigarettes Packs smoked per day: 1 Years cigarettes smoked: 25 Quit status (tobacco): has tried quititng Number of times tried to quit tobacco: 1 Smoking risk assessment/counseling performed?: Yes Tobacco counseling given: c ounseling >3 minutes Alcohol intake: former History of recent travel: No Current gender identity: Female Vitals/I&O/Wt Last Vital Signs Temp 97.5 F L 07/08/22 10:23 Pulse 78 07/08/22 10:23 Resp 16 07/08/22 10:23 BP 147/79 07/08/22 10:23 Pulse Ox 95 07/08/22 10:23 O2 Del Method 07/08/22 10:23 Physical Exam Narrative: Narrative:?? EXAM NARRATIVE: Cody rosario presents lorne rt and oriented x3 with a good gener al appearance norm al mood and affect acute distress.? normal coordinatio n and stability.? 4/5 motor strength both lower extrem ities with positiv e straight leg braswell se bilaterally.? C galan are supple n o medial thigh ten derness.? Pulses a re 2+ at the dorsa lis pedis and post erior tibial regio n.? Good capillary refill throughout normal sensation light touch both l ower extremities. HENMT:?? COMMON NORMALS: no rmocephalic? HEAD & SCALP: normoceph alic Resp:?? COMMON NORMALS: no rmal respiratory e ffort Cardio:?? COMMON NORMALS: re gular rate and reg ular rhythm? RATE: regular rate? RHY THM: regular rhyth m GI:?? COMMON NORMALS: So ft to palpation an d non-tender? PALP ATION: Yes Soft to palpation :?? COMMON NORMALS: Ye s no CVA tendernes s? BLADDER/KIDNEY EXAM: Yes no CVA t enderness Back/Pelvis:?? COMMON NORMALS: no CVA tenderness Psych:?? COMMON NORMALS: me ntal status grossl y normal and coope rative Data 07/08/22 10:35 A&P Assessment and plan (1) Spinal stenosis, lumbar region, with neurogenic claudication: T10 to pelvis with decompression Attestations Medical Necessity Statement*: failed conservative tx Coding Level of Care Code Acute Transportation Planner for Chg Fwd Diagnoses Spinal stenosis, lumbar region, with neurogenic claudication M48.062
--- NOTE | 2022-07-08 11:15 | P.ANESUD_ITS ---
Pre-Anesthetic Update Pre-Anesthetic Assessment: Date of Surgery/Procedure: 07/08/22 Preop Elizabeth gnosis: lumbar stenosis with neurogenic claudication Proposed Procedure: Operation Date: 07/08/22 12:40 Proposed Procedures p Spinal Fusion [id number]/29500M8/M48.062/M41.9/M51.36/(Not Applicable) - Otto H Marianna, DO s Lumbar Spine Decompression(Not Applicable) - Otto H Marianna, DO Any changes to Pre-Anesthetic Assessment?: No Last Intake: Intake Last Liquid Date 07/07/22 Last Liquid Time 18:00 Last Solid Date 07/07/22 Last Solid Time 18:00 Labs Last 48hrs: Short CBC 07/08/22 Range/Units 10:35 WBC 5.7 (4.0-10.0) 10^3/ uL Hgb 12.8 (11.5-15.3) g/dL Hct 39.2 (37.0-47.0) % MCV 92.5 (81-99) fl Plt Count 175 (130-400) 10^3/c mm Neut % (Auto) 54.4 % Neut # (Auto) 3.10 (1.8-7.7) 10^3/u L Vitals: Temperature 97.5 F L 07/08/22 10:23 Temperature Source Temporal Artery S can 07/08/22 10:23 Pulse Rate 78 07/08/22 10:23 Respiratory Rate 16 07/08/22 10:23 Blood Pressure 147/79 07/08/22 10:23 Blood Pressure Radha n 101 07/08/22 10:23 Pulse Oximetry 95 07/08/22 10:23 Oxygen Delivery Me thod 07/08/22 10:23 Exam: Pre-Anes Outpt Exam: alert, oriented x 3, clear to auscultation bilaterally and regular rate & rhythm Cardiac Studies: Echocardiogram 07/05/22
[2022-07-08] MEDS: ceFAZolin 2,000 MG in sodium chloride 0.9% (plus) 50 ML 100 MG IV ×2 (12:01→20:11)
[2022-07-08] MEDS: tranexamic acid 1,000 mg/10mL SDV 1000 MG IV (12:30)
--- NOTE | 2022-07-08 12:42 | ANES.PROC ---
Anesthesia Procedures Procedure/Date: 07/08/22 Arterial Line: Time Out Performed: Yes Consent: requested by attending/covering physician, from patient, risks and benefits reviewed and patient agrees to proceed Size (Gauge): 20 Technique Used: guide wire technique Post-Procedure: dry sterile dressing placed Patient Tolerated Procedure: well Complications: none Site: left and radial
[2022-07-08] MEDS: heparin, porcine 1,000 unit/mL INJ 10 mL 10000 UNIT IRRIGATION (12:56)
[2022-07-08] MEDS: vancomycin 1,000 MG SDV 1000 MG XX (12:56)
--- NOTE | 2022-07-08 16:29 | P.OP_ITS ---
Operative Report Date of procedure: July 08, 2022 Pre-op diagnosis: Preop Diagnosis lumbar stenosis with neurogenic claudication Post-op diagnosis: same Procedure done: 1. T10 to pelvis posterior fusion 2. T10 to S1 instrumentation 3. lumbopelvic instrumentation 4. L3/4 laminectomy with partial facetectomy 5. L4/5 laminectomy with partial facetectomy 6. use of allograft 7. use of autograft 8. use of computer navigation/ stereotactic for spine 9. bone marrow aspirate from Right iliac crest Patient was brought to the op suite after undergoing anesthesia was placed on the operating room table in the prone position. All areas impingement well- padded. Patient was then prepped and draped normal sterile fashion. Skin incision made from T10 down to S1. Subperiosteal dissection was made out to the transverse processes bilaterally from T10 down to L5. The sacral ala was exposed as well. Next attention was brought to placing the needle for the palmar aspect of the right iliac crest. There is the [employer] bone marrow aspirate kit. The needle was inserted and aspirated and then the aspiration kit was inserted and then the bone marrow aspirate was taken in 1 mm increments for 20 cc. This was later used to mix with the bone graft. Next attention was brought to placing the fiducial. 2 pins were placed into the right iliac crest the pins were later be removed at the end of the case. The fiducial was attached. The C-arm was brought in and spun around the patient. The information from the C-arm was then loaded the computer in order to facilitate using the computer navigated screws. Next attention was brought to placing the screws. This was done using the gearshift probe and then the pedicle feeler then the screw. The gearshift and the screw are both computer navigated. Screws were placed from S1 up to T10 bilaterally. Next attention was brought to placing the iliac screws. This was done by using the gearshift probe linked to the computer navigation placing it through the sacrum through the sacroiliac joint and then into the iliac crest this was done on both the right and left side. Pedicle feeler was used followed by placement of the screw. Screw was linked to the computer navigation. Next attention was brought to performing the laminectomy at L4-5. The high- speed bur was used to take down the lamina and then the Kerrison rongeur was inferior curved curettes were used to take down the remaining lamina and ligamentum flavum from L4-L5. The facet joint was taken out bilaterally using the sono PET. And the L for nerve was traced around the L4 pedicle out the L4-5 foramen bilaterally. L5 nerve was traced around the L5 pedicle felt to be adeq uately decompressed bilaterally. Next tension was brought to the L3-4 level. Laminectomy was performed at L3. This was done using high-speed bur curved curettes and Kerrisons. The facet joint was taken out with the swelling. Bilaterally. And then the L3 nerve was traced out the L3-4 foramen bilaterally. The L4 nerve transfer on the L4 pedicle bilaterally. There was found to be completely decompressed. Extension was brought to attaching the rods. The rods were attached from T10 down to S1 and then linked into the iliac screws to perform the lumbar pelvic fusion. Once all the caps were then locked in position rods were placed bilaterally. Was brought to decorticating the transverse processes and sacral ala and the lamina from T10 down to the sacral ala. The autograft was packed in the lateral gutters along with the allograft which was ostial amp bone graft. This was done bilaterally. The wound was then closed in layered fashion with 0 Vicryl 2-0 Vicryl and Monocryl suture. The drain was placed and patient was transferred to the PACU in stable condition after sterile dressing was applied.
--- NOTE | 2022-07-08 17:06 | SUR.PHASEI ---
1639 PT TO PACU 5 WITH ORAL AIRWAY IN PLACE GOOD RESP EFFORT, MANUAL ASSIST NEEDED TO KEEP AIRWAY OPEN, MONIOTR SR WITH NO ECTOPY, IV TO LT WRIST #18 WITH 300ML NS AT MOD RATE PER GRAVITY, ART LINE TO LT INNER WRIST PATENT WITH GOOD FLUSH NOTED ID BRACELET TO RT WRIST , PT ID'D WITH 2 IDENTIFIER DRESSING TO BACK D/I HEMAVAC DRAIN COMPRESSED WITH ADEQUATE SUCTION ACHIEVED, WITH SMALL AMT RED DRAINAGE NOTED BROWN TO DEPENDANT DRAINAGE WITH APPROX 50 ML YELLOW URINE TO TUBING AND BAG CLEAR, STATLOCK TO RT INNER THIGH, SCDS ON BILATERALLY AND WORKING 1711 PT OPENS EYES TO TOUCH STIMULUS BUT DOES NOT RESPOND PT MOVES TOES WEAKLY THEN BACK TO SLEEP ORAL AIRWAY REMAINS IN PLACE, DR VILLATORO AT BEDSIDE.
--- NOTE | 2022-07-08 17:11 | ANE.PACU2 ---
Inpatient post-anesthesia follow up: Airway intact: Yes Vital signs: Temperature 98 F Pulse Rate 99 Respiratory Rate 20 Blood Pressure 117/77 Pulse Oximetry 96 Oxygen Delivery Me thod Simple Mask Oxygen Flow Rate 8 Fraction of Inspir ed Oxygen Hydration adequate: Yes Nausea and vomiting: No Pain level: 4 Mental status: Altered (sedated) Additional Comments: delayed awakening
--- NOTE | 2022-07-08 17:13 | SUR.PHASEI ---
PT SLEEPS HOB NOW AT 20 DEGREES, PT ON RA TRIAL.
--- NOTE | 2022-07-08 17:36 | SUR.PHASEI ---
PT OPENS EYES TO STRONG STIMULI ONLY DOES NOT FOLLOW COMMAND, PT UNABLE TO MAINTAIN SATS ABOVE 90 ON RA TRIAL PT BACK ON MASK PT QUICKLY BACK TO SLEEP AND COOL CLOTH TO FACE PT STIMULATED AND ENCOURAGED TO COUGH AND DEEP BREATH. PT CONTINUES TO SLEEP WITH AIRWAY OCCLUDES AND MANUAL ASSIST NEED TO KEEP AIRWAY OPEN, ORAL AIRWAY INSERTED PT ON 5LNC SATS 91-92 % WITH GOOD RESP EFFORT BUT PT QUICKLY OCCLUDES AIRWAY EVEN WITH ORAL AIRWAY IN PLACE, ANESTHESIA NOTIFIED AND BIPAP ORDERED
--- NOTE | 2022-07-08 17:54 | SUR.PHASEI ---
RT HERE AND PT PLACED ON BIPAP PER PRIVATE BRANCH EXCHANGE SERVICE ADVISOR JAMAS BIPAP AT 40 PERCENT O2 SATS UP TO 93% ABGS ORDERED AT BEDSIDE. PT SLEEPS AND MOVES TO STIMULATION BUT DOES NOT OPEN EYES.
[2022-07-08 18:07] LABS: ABG PCO2 66.5 mmHg (35-45); ABG PH Result 7.14 (7.35-7.45); Alveolar-Arterial Oxygen Gradi 14.5 mmHg (5-10); Arterial Blood Gas Hematocrit 31.3 % (37-47); Base Excess ABG -6.7 mmol/L (-2.0-2.0); Blood Gas Operator Identificat AMH; Blood Gas Sample Site Brachial, left; Blood Gas Sample Type Arterial; Carboxyhemoglobin 1.6 %THgb (0.4-20.1); HCO3 ABG 22.7 mmol/L (22-26); HGB O2 Sat 93.6 % (95-100); Ionized Calcium Level - ABG 1.2 mmol/L (1.1-1.4); Oxygen Device BIPAP; Oxygen Saturation ABG 96.1; PO2 ABG 95.7 mmHg (80.0-100.0); Total Hemoglobin 10.2 g/dL (12-16)
--- NOTE | 2022-07-08 18:37 | PM.CONSULT ---
Providers/Reason For Consult Consulting Physician/Specialty*: Hospitalist Reason for Consult*: Postop respiratory acidosis Attending Physician: Otto Cabral DO Primary Care Provider: Alberto Davenport MD History of Present Illness History of Present Illness Lauren Espinoza is a 62 year old female who had procedure done today for her lumbar stenosis with neurogenic claudication status post L3-L5 laminectomy, lumbopelvic instrumentation, T10 to pelvis posterior fusion hospital service has been requested to manage her postoperatively in the ICU because she carries history of COPD and now has respiratory acidosis postoperatively. At the time of my evaluation patient was in ICU 10, she is awake and alert able to tell me her name, patient is stating she smokes 1 pack/day, does not use oxygen, no significant medical history, she is denying history of diabetes however her blood sugar is high. I have requested another CBC, BMP and ABG. She is on AVAPS tidal volume 450 however she is only pulling 300 350 mL, respirate is at 20, 40% FiO2 Patient is not in pain at the time of evaluation Able to follow commands Review of Systems Const: Denies: chills Eyes: Denies: change in vision ENMT: Denies: throat pain Card: Denies: chest pain Resp: Denies: dyspnea GI: Denies: abdominal pain : Denies: flank pain Musc: Reports: back pain Skin/Breast: Denies: skin swelling Neuro: Denies: headache(s) Psych: Denies: anxiety Endo: Denies: polyuria Jamel/Lymph: Denies: easy bruising All/Imm: Denies: urticaria Medications/Allergies Home Medications Medication Instructions Recorded Confirmed Last Taken Type fluticasone propionate 44 2 puff inhalation BID 09/14/19 07/08/22 07/07/22 History mcg/actuation HFA aerosol inhaler (Flovent HFA) gabapentin 600 mg tablet 600 mg PO .Five times daily PRN 10/19/19 07/08/22 07/08/22 History UNKNOWN duloxetine 60 mg capsule,delayed 60 mg PO DAILY #30 caps 10/20/19 07/08/22 07/08/22 Rx release (Cymbalta) lamotrigine 100 mg tablet 100 mg PO DAILY #30 tabs 10/20/19 07/08/22 07/07/22 Rx tizanidine 4 mg tablet See Rx Instructions .Route .COMPLEX 12/27/19 07/08/22 07/08/22 History methocarbamol 750 mg tablet 750 mg PO Q8H PRN Muscle spasms 11/18/21 07/08/22 07/08/22 Rx and pain #20 tabs meloxicam 15 mg tablet 15 mg PO DAILY #60 tabs 01/01/22 07/08/22 07/08/22 Rx MARIJUANA See Rx Instructions .Route .COMPLEX 03/05/22 06/04/22 07/07/22 History hydrocodone 5 mg-acetaminophen 325 1 tab PO Q4H PRN pain 5 days #30 07/01/22 07/08/22 07/07/22 Rx mg tablet tabs Intraoperative Neuromonitoring #1 ea 07/05/22 07/08/22 Unknown Rx brexpiprazole 2 mg tablet (Rexulti) 2 mg PO DAILY 07/05/22 07/08/22 07/08/22 History duloxetine 30 mg capsule,delayed 30 mg PO DAILY 07/05/22 07/08/22 07/07/22 History release montelukast 10 mg tablet 10 mg PO DAILY 07/05/22 07/08/22 07/08/22 History pantoprazole 40 mg tablet,delayed 40 mg PO BID 07/05/22 07/08/22 07/08/22 History release trazodone 100 mg tablet 150 mg PO .HS 07/05/22 07/08/22 07/07/22 History Allergies Allergy/AdvReac Type Severity Reaction Status Date / Time No Known Allergies Allergy Verified 07/08/22 10:15 Current Medications Generic Name Dose Route Start Last Admin Trade Name Rita PRN Reason Stop Dose Admin Sodium Chloride 1,000 mls @ 30 mls/hr 07/08/22 10:15 07/08/22 10:40 Sodium Chloride 0.9% IV 07/09/22 10:14 30 mls/hr .Q24H RAJESH Administration PFSH Acute PFSH: Medical History (Updated 07/08/22 @ 20:01 by Bandar Borges MD) Cannabis use disorder, mild, abuse Degenerative disc disease Generalized anxiety disorder Major depressive disorder, recurrent severe without psychotic features Post-traumatic stress disorder, chronic Social History Smoking and tobacco status: current every day smoker cigarettes Packs smoked per day: 1 Years cigarettes smoked: 25 Quit status (tobacco): has tried quititng Number of times tried to quit tobacco: 1 Smoking risk assessment/counseling performed?: Yes Tobacco counseling given: counseling >3 minutes Alcohol intake: former History of recent travel: No Current gender identity: Female Vitals/I&O/Wt Last Vital Signs Temp 98 F 07/08/22 16:40 Pulse 105 H 07/08/22 18:00 Resp 17 07/08/22 18:00 BP 130/79 07/08/22 18:00 Pulse Ox 93 07/08/22 18:00 O2 Del Method 07/08/22 18:00 O2 Flow Rate 40 07/08/22 18:00 FiO2 40 07/08/22 17:45 07/08/22 07/08/22 07/08/22 06:59 14:59 22:59 Intake Total 50 / 50 700 / 750 Output Total 1900 / 1900 Balance 50 / 50 -1200 / -1150 Physical Exam Narrative: Patient is laying supine Awake and alert Able to follow commands No significant asterixis Currently on AVAPS Settings mentioned in the HPI Abdomen soft Epstein catheter draining concentrated urine No signs of edema No focal deficits noted No distress at the time of evaluation She S1, S2 Bilateral equal breath sounds Urinary Catheter Management: Epstein: Cath Placed During This Visit: yes Urinary Catheter Date of Insertion: 07/08/22 Urinary Catheter Time of Insertion: 12:12 Data 07/08/22 10:35 A&P Assessment and plan (1) Facet arthropathy, lumbar: (2) Spinal stenosis, lumbar region, with neurogenic claudication: (3) Postoperative acute respiratory failure: Plan Postoperative COPD exacerbation with acute respiratory acidosis Patient is awake and alert No signs of worsening of confusion or respiratory distress I have requested another ABG, CBC, BMP and chest x-ray Patient is able to follow commands, asterixis negative Hold opioids and muscle relaxant for now Currently patient is on AVAPS, Will adjust settings after reviewing ABG Patient smokes 1 pack/day, she carries history of known oxygen dependent COPD We will check drug screen 1400 mL estimated blood loss during surgery Follow-up with H&H Let her eat once her respiratory acidosis improved Full code DVT prophylaxis to be started tomorrow, repeating CBC right now Opioids and bowel regimen added as per orthopedics She is getting LR at 90 mL/h DuoNeb every 4 as needed, no active signs of wheezing, no need of steroids Getting x-ray to rule out postoperative atelectasis Consult Attestations Medical Necessity Statement: Discharge as per orthopedic Critical Care Time: 30 Procedures Arterial Line Size (Gauge): 20 Coding Level of Care Code Acute Assisted Sales Representative for Chg Fwd Diagnoses Facet arthropathy, lumbar M47.816 Spinal stenosis, lumbar region, with neurogenic claudication M48.062 Postoperative acute respiratory failure J95.821
--- NOTE | 2022-07-08 18:49 | SUR.PHASEI ---
PT MORE ALERT MOVING IN BED, PT VERBALIZED NO PAIN AND KNOW NAME AND PLACE AND DATE OF , PT ROLLED TO SIDE, DRESSING D/I , PT STILL ON C PAP SETTINGS PER RESPIRATORY, SATS 95% FAMILY UP DATED EARLIER THAT PT WILL GO TO ICU BED WHEN AVAILABLE, DAUGHTER ALVARADO CALLED. PT AWARE WELL , VSS, HOB AT [address] WITH NO ECTOPY.
--- NOTE | 2022-07-08 19:22 | SUR.PHASEI ---
FAMILY UPDATED AGAIN , PT IS STABLE AWAKE AND RESPONDS APPROPRIATELY WILL GO TO ICU IN APPROX 30 MINUTES TO AN HOUR. NO PROBLEMS OR COMPLAINTS NOTED . PT AWAKES AND IS ORIENTED X 3 SATS 96% RESP EVEN AND UNLABORED PT ROLLS SELF WITH ASSIST,DRESSING TO BACK D/I , BROWN PATENT OF YELLOW URINTE IN TUBING AND BAG.
--- NOTE | 2022-07-08 19:24 | SUR.PHASEI ---
RAIL SIGNAL WORKER CALLED AND ROOM ASSIGNMENT GIVEN.
--- NOTE | 2022-07-08 19:35 | SUR.PHASEI ---
REPORT CALLED TO FLOOR PT TO GO PER BED TO ICU, RESP THERAPY CALLED TO SET UP CPAP IN ICU AND FOR TRANSPORT, PT AWAKE ALERT AND FAMLY UPDATED. PT TO GO TO ICU 10
[2022-07-08 19:54] LABS: Glucose Point of Care 220 mg/dL (70-110)
[2022-07-08] MEDS: lactated ringers 1,000 ML 90 ML IV (19:56)
--- NOTE | 2022-07-08 20:01 | XRR_ITS ---
PROCEDURE INFORMATION: Exam: XR Chest Exam date and time: 07/08/2022 8:10 PM Age: 62 years old Clinical indication: Other: Post op; Prior surgery; Surgery date: Post-operative (0-2 days); Surgery type: Lumbar TECHNIQUE: Imaging protocol: Radiologic exam of the chest. Views: 1 view. COMPARISON: CR XR chest 1V [id number] 12/01/2016 6:12 PM FINDINGS: Lungs: Unremarkable. No consolidation. Pleural spaces: Unremarkable. No pleural effusion. No pneumothorax. Heart/Mediastinum: Heart is upper limits of normal in size. Likely accentuated by technique. Bones/joints: Old right clavicle deformity. Partially assessed thoracolumbar fusion. XR/XR chest 1V portable [id number] IMPRESSION: No acute finding.
[2022-07-08] MEDS: budesonide 0.5 mg/2 mL Neb INHALATION (20:04)
[2022-07-08 20:14] LABS: Arterial Blood Gas Hematocrit 31.6 % (37-47); Base Excess ABG -6.8 mmol/L (-2.0-2.0); Blood Gas Allen Test Pos; Blood Gas Sample Site Radial, right; Blood Gas Sample Type Arterial; HCO3 ABG 21.9 mmol/L (22-26); Oxygen Device BIPAP
[2022-07-08 20:16] LABS: ABG PH Result 7.18 (7.35-7.45)
[2022-07-08 20:25] LABS: Basophils % 0.3 %; Hematocrit 30.8 % (37.0-47.0); Lymphocytes # 1.1 10^3/uL (0.8-4.8); Lymphocytes % 6.7 %; Mean Corpuscular HGB Conc 32.5 g/dL (30.0-36.0); Mean Corpuscular Hemoglobin 30.9 pg (28.0-34.0); Mean Corpuscular Volume 95.1 fl (81-99); Mean Platelet Volume 9.7 fL (7.4-10.4); Monocytes # 0.6 10^3/uL (0.2-0.9); Monocytes % 3.5 %; Neutrophils # 13.99 10^3/uL (1.8-7.7); Neutrophils % 88.9 %; Nucleated Red Blood Cells % 0 %; Platelet Count 222 10^3/cmm (130-400); Red Blood Count 3.24 10^6/uL (4.1-5.3); Red Cell Distribution Width 12.7 % (12.1-15.1); White Blood Count 15.7 10^3/uL (4.0-10.0)
[2022-07-08 20:37] LABS: Blood Urea Nitrogen 24 mg/dL (8-23); Calcium 7.9 mg/dL (8.5-10.5); Carbon Dioxide 20 mmol/L (22-29); Glomerular Filtration Rate 63.7 mL/min (90-130); Glucose 211 mg/dL (65-115); Osmolality Calculated 306 mOsm/kg (285-295); Sodium 143 mmol/L (136-145)
[2022-07-08 20:51] LABS: Amphetamines Screen Urine Negative (Negative); Barbiturates Screen Urine Negative (Negative); Benzodiazepines Screen Urine Negative (Negative); Cocaine Screen Urine Negative (Negative); Opiate Screen Urine Positive (Negative); PCP Screen Urine Negative (Negative); THC Screen Urine Positive (Negative)
[2022-07-08 21:06] LABS: Anion Gap 16.3 (5-19); Chloride 111 mmol/L (98-107); Potassium 4.3 mmol/L (3.5-5.1)
[2022-07-08 21:37] LABS: ABG PCO2 38.9 mmHg (35-45); ABG PH Result 7.33 (7.35-7.45); Alveolar-Arterial Oxygen Gradi 0.5 mmHg (5-10); Arterial Blood Gas Hematocrit 30.6 % (37-47); Base Excess ABG -4.9 mmol/L (-2.0-2.0); Blood Gas Allen Test Pos; Blood Gas Sample Site Radial, right; Blood Gas Sample Type Arterial; Carboxyhemoglobin 1.1 %THgb (0.4-20.1); HCO3 ABG 20.6 mmol/L (22-26); HGB O2 Sat 97.3 % (95-100); Ionized Calcium Level - ABG 1.2 mmol/L (1.1-1.4); Methemoglobin 1.4 % (0.4-1.5); Oxygen Device BIPAP; Oxygen Saturation ABG 99.7; Potassium Level - ABG 4.4 mmol/L (3.5-5.0)
[2022-07-09] VITALS (31 sets, daily range): BP systolic 104–184; BP diastolic 65–95; PULSE 81–129; RESP 14–31; TEMP 36.9–37.5; O2SAT 92–99
[2022-07-09] MEDS: morphine 4 mg/mL SDV 1 mL 2 MG IVP ×7 (00:18→23:57)
[2022-07-09 03:17] LABS: Basophils % 0.1 %; Hematocrit 28.8 % (37.0-47.0); Hemoglobin 9.2 g/dL (11.5-15.3); Lymphocytes # 0.7 10^3/uL (0.8-4.8); Lymphocytes % 7.3 %; Mean Corpuscular HGB Conc 31.9 g/dL (30.0-36.0); Mean Corpuscular Volume 93.8 fl (81-99); Mean Platelet Volume 9.7 fL (7.4-10.4); Monocytes # 0.5 10^3/uL (0.2-0.9); Monocytes % 5.2 %; Nucleated Red Blood Cells % 0 %; Platelet Count 165 10^3/cmm (130-400); Red Blood Count 3.07 10^6/uL (4.1-5.3); Red Cell Distribution Width 12.7 % (12.1-15.1); White Blood Count 10.1 10^3/uL (4.0-10.0)
[2022-07-09 03:27] LABS: ABG PCO2 48.9 mmHg (35-45); ABG PH Result 7.29 (7.35-7.45); Blood Gas Allen Test Pos; Blood Gas Sample Site Radial, right; Blood Gas Sample Type Arterial; HCO3 ABG 23.6 mmol/L (22-26); Oxygen Device BIPAP
[2022-07-09] MEDS: ceFAZolin 2,000 MG in sodium chloride 0.9% (plus) 50 ML 100 MG IV ×2 (03:45→11:46)
[2022-07-09 03:49] LABS: Anion Gap 13.4 (5-19); Blood Urea Nitrogen 23 mg/dL (8-23); Calcium 8.3 mg/dL (8.5-10.5); Carbon Dioxide 23 mmol/L (22-29); Chloride 114 mmol/L (98-107); Glomerular Filtration Rate 85.1 mL/min (90-130); Glucose 146 mg/dL (65-115); Osmolality Calculated 308 mOsm/kg (285-295); Potassium 4.4 mmol/L (3.5-5.1); Sodium 146 mmol/L (136-145)
[2022-07-09] MEDS: lactated ringers 1,000 ML 90 ML IV ×2 (06:00→18:06)
--- NOTE | 2022-07-09 07:27 | PM.PN ---
Subjective Subjective: POD 1 Patient complaining of back pain states her leg pain has improved. Denies any shortness of breath, chest pain, headaches. Denies lightheadedness or dizziness. Vitals/I&O/Wt Last Vital Signs Temp 98.9 F 07/09/22 06:00 Pulse 109 H 07/09/22 06:30 Resp 20 H 07/09/22 06:00 BP 158/88 07/09/22 06:00 Pulse Ox 99 07/09/22 06:30 O2 Del Method 07/09/22 06:00 O2 Flow Rate 40 07/08/22 19:10 FiO2 30 07/09/22 06:30 07/08/22 07/09/22 07/09/22 22:59 06:59 14:59 Intake Total 1030 / 1080 956 / 2036 Output Total 1999 750 / 2750 Balance -970 / -920 206 / -714 Weight last 48 hrs Weight 192 lb Physical Exam Narrative: Patient presents alert and oriented x3 with a good general appearance normal mood and affect. Normal coordination normal stability. Mild tenderness around the incisional site with the incision appear to be in and dry with Hemovac intact. No signs of erythema or drainage. No signs of infection. Patient denies any fevers or chills. 5/5 motor strength both lower extremities with negative straight leg raise bilaterally. Calves are supple no medial thigh tenderness. Pulses are 2+ at the dorsalis pedis and posterior tibial region. Good capillary refill throughout normal sensation light touch both lower extremities. Urinary Catheter Management: Epstein: Cath Placed During This Visit: yes Reason for Continuing Indwelling Catheter: Accurate Measurement of Urinary Output in Critically Ill Patients Urinary Catheter Date of Insertion: 07/08/22 Urinary Catheter Time of Insertion: 12:12 Data 07/09/22 02:54 07/09/22 02:54 A&P Assessment and plan (1) Postoperative acute respiratory failure: Encourage her to continue incentive spirometer for pulmonary toilet. We will have physical therapy work with mobilization. Keep Hemovac until tomorrow. Discontinue Epstein catheter when more mobile. Okay from orthopedic standpoint to transfer to [facility] when cleared with hospitalist team. Work towards discharge tomorrow. (2) S/P spinal fusion: Attestations Medical Necessity Statement*: Full discharge home tomorrow Procedures Arterial Line Size (Gauge): 20 Coding Level of Care Code Acute Head Shipper for Chg Fwd Diagnoses Postoperative acute respiratory failure J95.821 S/P spinal fusion Z98.1
--- NOTE | 2022-07-09 07:53 | XR_ITS ---
WS: [id number] Exam: XR thoracolumbar junct [id number] Date/Time of Exam: 07/09/2022 8:04 AM Reason For Exam: T10 to Pelvis Comparison 11/22/2021. There is posterior fusion of the spine extending from T10 to S1 with pedicle screws and posterior alberto s. Screws bridge the bilateral SI joints. Hardware is in satisfactory position. No sign of hardware f ailure. There is levoscoliosis of the lumbar spine. XR/XR thoracolumbar junct [id number] IMPRESSION: 1. Posterior interbody fusion extending from T10 to S1 in satisfactory position .
[2022-07-09] MEDS: pantoprazole DR 40 mg Tablet PO ×2 (08:10→18:01)
[2022-07-09] MEDS: docusate sodium 100 mg Capsule PO (08:10)
[2022-07-09] MEDS: lamoTRIgine 100 mg Tablet PO (08:10)
[2022-07-09] MEDS: montelukast sodium 10 mg Tablet PO (08:10)
[2022-07-09] MEDS: meloxicam 7.5 mg tablet 15 MG PO (08:20)
[2022-07-09] MEDS: budesonide 0.5 mg/2 mL Neb INHALATION (09:13)
--- NOTE | 2022-07-09 10:23 | PC.CHAP ---
Pastoral Care Encounter/Spiritual Assessment Type of Contact [] Declined point of sale associate visit [] Patient/Family/Request visit [] Outpatient visit [] Follow-up visit [] Physician referral [] Code/Alert [x] Routine visit [] Staff referral [] Actively dying [x] Patient sleeping [] Family support [] [] Out of room [] Palliative care [] [] Receiving care in room [] Pre-surgical visit [] Trauma [] Long length of stay [x] ICU visit [] Other: Relational/Emotional Strength [] Patient feels connected with others/family/visitors/staff [] Distress [] Loneliness/isolation [] Abandonment Spirituality of Patient [] Person of Vicki [] Attends Religious of their Vicki [] Believes in Prayer [] Reads Bible or Baptism materials [] There are Spiritual issues to be addressed Computer Numerical Control Programmer Interventions [x] Prayer [] Active listening [] Non-anxious presence [] Spiritual/emotional support [] Crisis/trauma care [] Spiritual counseling [] Bereavement support [] Provided bereavement packet [] Provided Bible/devotional materials [] Provided toy/stuffed animal, coloring book to patient or family member [] Provided Communion [] Anointing/Ferris [] Salvation [] Completed spiritual assessment [] Other: Impact on Illness or Injury [] Angry [] Fearful [] Anxious [] Often cries [] Exhaustion [] Unable to work [] Unable to attend amish [] Unable to walk/stand [] Unable to read [] Unable to drive [] Unable to eat/drink [] Unable to sleep [] Unable to be with family [] Patient intubated [] Other: Summary Time spent with patient
[2022-07-09] MEDS: HYDROcodone-acetaminophen 5-325 mg Tablet PO ×3 (11:47→23:03)
--- NOTE | 2022-07-09 14:22 | PM.PN ---
Subjective Subjective: Seen this morning. No acute events overnight patient laying in bed complaining of some back pain at surgical site. Denies any shortness of breath, chest pain, abdominal pain, nausea, vomiting, diarrhea. On room air at this time. Says she has inhalers at home but uses them whenever she needs them but is not on anything scheduled. Vitals/I&O/Wt Last Vital Signs Temp 99.5 F 07/09/22 08:40 Pulse 109 H 07/09/22 12:00 Resp 17 07/09/22 09:13 BP 184/95 07/09/22 12:00 Pulse Ox 96 07/09/22 12:00 O2 Del Method 07/09/22 09:13 O2 Flow Rate 40 07/08/22 19:10 FiO2 30 07/09/22 06:30 07/08/22 07/09/22 07/09/22 22:59 06:59 14:59 Intake Total 1030 / 1080 956 / 2036 480 / 480 Output Total 1999 / 1999 750 / 2750 75 / 75 Balance -970 / -920 206 / -714 405 / 405 Weight last 48 hrs Weight 87.09 kg Physical Exam Narrative: Patient is laying on her side. On room air at this time. Awake and alert Able to follow commands No significant asterixis Currently on AVAPS Settings mentioned in the HPI Abdomen soft No signs of edema No focal deficits noted No distress at the time of evaluation She S1, S2 Bilateral equal breath sounds Urinary Catheter Management: Epstein: Cath Placed During This Visit: yes Reason for Continuing Indwelling Catheter: Accurate Measurement of Urinary Output in Critically Ill Patients Urinary Catheter Date of Insertion: 07/08/22 Urinary Catheter Time of Insertion: 12:12 Data 07/09/22 02:54 07/09/22 02:54 A&P Assessment and plan (1) Facet arthropathy, lumbar: (2) Spinal stenosis, lumbar region, with neurogenic claudication: (3) Postoperative acute respiratory failure: Plan Postoperative respiratory compromise secondary to anesthesia with underlying COPD history. Patient is awake and alert No signs of worsening of confusion or respiratory distress Patient is now on room air. Able to follow commands alert oriented x3. Patient is able to follow commands, Pain medications as per primary team. Patient on room air. Patient smokes 1 pack/day, she carries history of known oxygen dependent COPD 1400 mL estimated blood loss during surgery Hemoglobin stable at 9.2. Full code DVT prophylaxis to be started today if okay with orthopedic surgery. Opioids and bowel regimen added as per orthopedics She is getting LR at 90 mL/h DuoNeb every 4 as needed, no active signs of wheezing, no need of steroids Getting x-ray to rule out postoperative atelectasis Attestations Medical Necessity Statement*: Per primary team. Procedures Arterial Line Size (Gauge): 20 Coding Level of Care Code Acute Bin Tripper Operator for Chg Fwd Diagnoses Facet arthropathy, lumbar M47.816 Spinal stenosis, lumbar region, with neurogenic claudication M48.062 Postoperative acute respiratory failure J95.821
[2022-07-09] MEDS: enoxaparin 40 mg/0.4 mL Syringe SUBCUT (15:07)
--- NOTE | 2022-07-09 17:36 | PC.NURSE ---
PT was able to get patient up to chair. She was able to sit up for about 20 minuets and transferred herself back to bed. PRN pain medication requested and given multiple times this shift.
--- NOTE | 2022-07-09 18:42 | PC.NURSE ---
Order for lovenox was verified with Dr. Ureña and Dr. Cabral. Given per orders.
[2022-07-09] MEDS: ketorolac 30 mg/mL INJ IVP (20:51)
[2022-07-09] MEDS: trazodone 150 mg Tablet PO (20:51)
[2022-07-10] VITALS (31 sets, daily range): BP systolic 82–156; BP diastolic 39–80; PULSE 84–109; RESP 12–23; TEMP 37–37.5; O2SAT 90–98
[2022-07-10] MEDS: morphine 4 mg/mL SDV 1 mL 2 MG IVP ×5 (01:07→16:35)
--- NOTE | 2022-07-10 01:13 | PC.NURSE ---
Pt refusing BP cuff
[2022-07-10] MEDS: morphine 4 mg/mL SDV 1 mL IVP (02:06)
[2022-07-10 03:51] LABS: Basophils % 0.2 %; Lymphocytes # 1.6 10^3/uL (0.8-4.8); Lymphocytes % 29.5 %; Mean Corpuscular Hemoglobin 31.3 pg (28.0-34.0); Mean Corpuscular Volume 94.7 fl (81-99); Mean Platelet Volume 10.1 fL (7.4-10.4); Monocytes # 0.3 10^3/uL (0.2-0.9); Monocytes % 6.4 %; Neutrophils # 3.39 10^3/uL (1.8-7.7); Neutrophils % 63.7 %; Nucleated Red Blood Cells % 0 %; Platelet Count 106 10^3/cmm (130-400); Red Blood Count 2.08 10^6/uL (4.1-5.3); Red Cell Distribution Width 12.8 % (12.1-15.1); White Blood Count 5.3 10^3/uL (4.0-10.0)
[2022-07-10] MEDS: HYDROcodone-acetaminophen 5-325 mg Tablet PO ×4 (03:59→20:08)
[2022-07-10] MEDS: lactated ringers 1,000 ML 90 ML IV ×2 (04:24→19:04)
[2022-07-10 04:33] LABS: Hematocrit 19.7 % (37.0-47.0); Hemoglobin 6.5 g/dL (11.5-15.3)
[2022-07-10] MEDS: HYDROmorphone 1 mg/mL INJ 1 mL 0.2 MG IVP ×3 (04:57→21:11)
--- NOTE | 2022-07-10 05:59 | PC.NURSE ---
Addendum entered by Veronika Maxwell RN 07/10/22 06:08: Dr. Cabral was not butadiene converter helper. Dr. Power was contacted. Dr stated that he would contact Dr. Cabral and let him know. Original Note: Pt has been uncomfotrtable all night. Pt has c/o pain almost non-stop. Pt was asked multiple times to let nurse know when she needed to move or reposition so that this nurse could help move the wires/tubes/drain attached to her. Upon hourly inspection of drain/surgical site, nurse noted that the drain tube had become dislodged and there was blood/drainage all over the bed. Pt re educated about importance of calling for nurse to assist in movement. Pt bedding was changed. Nurse will contact surgeon to inform him of accidental drain tube removal.
[2022-07-10 06:41] LABS: Basophils % 0.2 %; Eosinophils % 0.2 %; Lymphocytes # 1.3 10^3/uL (0.8-4.8); Lymphocytes % 24.3 %; Mean Corpuscular HGB Conc 31.5 g/dL (30.0-36.0); Mean Corpuscular Volume 95.2 fl (81-99); Mean Platelet Volume 9.9 fL (7.4-10.4); Monocytes # 0.4 10^3/uL (0.2-0.9); Monocytes % 7.1 %; Neutrophils # 3.62 10^3/uL (1.8-7.7); Neutrophils % 67.8 %; Nucleated Red Blood Cells % 0 %; Platelet Count 88 10^3/cmm (130-400); Red Blood Count 2.07 10^6/uL (4.1-5.3); Red Cell Distribution Width 12.4 % (12.1-15.1); White Blood Count 5.3 10^3/uL (4.0-10.0)
--- NOTE | 2022-07-10 06:50 | P.PN_ITS ---
Subjective Subjective: POD 2 Patient reporting back complaining of back pain states the legs are much better. Reporting lightheaded and dizziness. Vitals/I&O/Wt Last Vital Signs Temp 98.5 F 07/09/22 16:00 Pulse 98 07/10/22 06:00 Resp 15 07/10/22 06:00 BP 101/76 07/10/22 06:00 Pulse Ox 94 07/10/22 06:00 O2 Del Method 07/09/22 20:00 O2 Flow Rate 40 07/08/22 19:10 FiO2 30 07/09/22 06:30 07/09/22 07/09/22 07/10/22 14:59 22:59 06:59 Intake Total 480 / 480 153 / 2009 927 / 2937 Output Total 75 / 75 725 / 800 1200 / 2000 Balance 405 / 405 805 / 1210 -273 / 937 Weight last 48 hrs Weight 192 lb Physical Exam Narrative: Patient presents alert and oriented x3 with a good general pepe earance normal mood and affect. Normal coordination normal stability. Mild tenderness around the incisional site with the incision appear to be healing nicely. No signs of erythema or drainage. No signs of infection. Patient denies any fevers or chills. 5/5 motor strength both lower extremities with negative straight leg raise bilaterally. Calves are supple no medial thigh tenderness. Pulses are 2+ at the dorsalis pedis and posterior tibial region. Good capillary refill throughout normal sensation light touch both lower extremities. Urinary Catheter Management: Epstein: Cath Placed During This Visit: yes Reason for Continuing Indwelling Catheter: Accurate Measurement of Urinary Output in Critically Ill Patients Urinary Catheter Date of Insertion: 07/08/22 Urinary Catheter Time of Insertion: 12:12 Data 07/10/22 01:55 07/09/22 02:54 A&P Assessment and plan (1) S/P spinal fusion: Type and cross and transfuse 2 units of packed red blood cells with 20 mg IV Lasix in between each unit. Repeat H&H after last unit. Physical therapy to continue to mobilize. Continue incentive spirometer for pulmonary toilet. Laxative of choice to help with bowel movement. (2) Acute blood loss as cause of postoperative anemia: Attestations Medical Necessity Statement*: defer to medical team Procedures Arterial Line Size (Gauge): 20 Coding Level of Care Code Acute Education Supervisor for Chg Fwd Diagnoses S/P spinal fusion Z98.1 Acute blood loss as cause of postoperative anemia D62
[2022-07-10 06:56] LABS: Hemoglobin 6.2 g/dL (11.5-15.3)
[2022-07-10 06:57] LABS: Hematocrit 19.7 % (37.0-47.0)
[2022-07-10] MEDS: docusate sodium 100 mg Capsule PO ×2 (09:02→18:24)
[2022-07-10] MEDS: lamoTRIgine 100 mg Tablet PO (09:02)
[2022-07-10] MEDS: montelukast sodium 10 mg Tablet PO (09:03)
[2022-07-10] MEDS: pantoprazole DR 40 mg Tablet PO ×2 (09:03→18:24)
[2022-07-10] MEDS: meloxicam 7.5 mg tablet 15 MG PO (09:04)
[2022-07-10] MEDS: ketorolac 30 mg/mL INJ IVP (09:52)
[2022-07-10] MEDS: tizanidine 4 mg Tablet 6 MG PO ×2 (12:15→20:25)
[2022-07-10] MEDS: FUROsemide 10 mg/mL SDV 2mL 20 MG IVP (12:15)
[2022-07-10] MEDS: sodium chloride 0.9% 100 mL Bag 50 ML IV ×2 (12:30→14:35)
--- NOTE | 2022-07-10 13:20 | PM.PN ---
Subjective Subjective: seen this am hb dropped 6.1 this am 2 units ordered she is not in any pain at this time laying in bed overnight she accidently pulled out her surgical drain as per RN Vitals/I&O/Wt Last Vital Signs Temp 98.9 F 07/10/22 10:00 Pulse 99 07/10/22 10:00 Resp 14 07/10/22 12:14 BP 121/59 07/10/22 10:00 Pulse Ox 98 07/10/22 12:14 O2 Del Method 07/10/22 10:00 O2 Flow Rate 40 07/08/22 19:10 FiO2 30 07/09/22 06:30 07/09/22 07/10/22 07/10/22 22:59 06:59 14:59 Intake Total 1529 / 2009 927 / 2937 540 / 540 Output Total 725 / 800 1200 / 2000 1000 / 1000 Balance 805 / 1210 -273 / 937 -460 / -460 Weight last 48 hrs Weight 87.09 kg Physical Exam Narrative: Patient is laying on her side. On room air at this time. Awake and alert Able to follow commands No significant asterixis Currently on AVAPS Settings mentioned in the HPI Abdomen soft No signs of edema No focal deficits noted No distress at the time of evaluation She S1, S2 Bilateral equal breath sounds Urinary Catheter Management: Epstein: Cath Placed During This Visit: yes Reason for Continuing Indwelling Catheter: Accurate Measurement of Urinary Output in Critically Ill Patients Urinary Catheter Date of Insertion: 07/08/22 Urinary Catheter Time of Insertion: 12:12 Data 07/10/22 06:25 07/09/22 02:54 A&P Assessment and plan (1) Facet arthropathy, lumbar: (2) Spinal stenosis, lumbar region, with neurogenic claudication: (3) Postoperative acute respiratory failure: Plan Postoperative respiratory compromise secondary to anesthesia with underlying COPD history. Patient is awake and alert No signs of worsening of confusion or respiratory distress Patient is now on room air. Able to follow commands alert oriented x3. Patient is able to follow commands, Pain medications as per primary team. Patient on room air. Patient smokes 1 pack/day, she carries history of known oxygen dependent COPD 1400 mL estimated blood loss during surgery Hemoglobin 6.1. getting 2 units of blood today will check post transfusion cbc transfuse < 7 Full code DVT prophylaxis : lovenox. but on hold today Opioids and bowel regimen added as per orthopedics DuoNeb every 4 as needed, no active signs of wheezing, no need of steroids Attestations Medical Necessity Statement*: per primary team. Procedures Arterial Line Size (Gauge): 20 Coding Level of Care Code Acute Direct Care Staffer for Chg Fwd Diagnoses Facet arthropathy, lumbar M47.816 Spinal stenosis, lumbar region, with neurogenic claudication M48.062 Postoperative acute respiratory failure J95.821
[2022-07-10] MEDS: methocarbamol 750 mg Tablet PO ×2 (15:21→23:46)
[2022-07-10 19:51] LABS: Basophils % 0.2 %; Eosinophils % 0.2 %; Hematocrit 26.1 % (37.0-47.0); Hemoglobin 8.8 g/dL (11.5-15.3); Lymphocytes # 1.4 10^3/uL (0.8-4.8); Lymphocytes % 25.5 %; Mean Corpuscular HGB Conc 33.7 g/dL (30.0-36.0); Mean Corpuscular Hemoglobin 30.1 pg (28.0-34.0); Mean Corpuscular Volume 89.4 fl (81-99); Mean Platelet Volume 10.3 fL (7.4-10.4); Monocytes # 0.4 10^3/uL (0.2-0.9); Monocytes % 6.3 %; Neutrophils # 3.76 10^3/uL (1.8-7.7); Neutrophils % 67.6 %; Nucleated Red Blood Cells % 0 %; Platelet Count 101 10^3/cmm (130-400); Red Blood Count 2.92 10^6/uL (4.1-5.3); Red Cell Distribution Width 13.6 % (12.1-15.1); White Blood Count 5.6 10^3/uL (4.0-10.0)
[2022-07-10 20:02] LABS: Slide Review Slide Review Perform
[2022-07-10] MEDS: trazodone 150 mg Tablet PO (20:07)
[2022-07-11] VITALS (30 sets, daily range): BP systolic 94–166; BP diastolic 52–81; PULSE 66–100; RESP 12–25; TEMP 37.2–37.5; O2SAT 90–100
[2022-07-11] MEDS: morphine 4 mg/mL SDV 1 mL 2 MG IVP ×3 (00:47→17:22)
[2022-07-11 01:14] LABS: Basophils % 0.3 %; Eosinophils % 0.3 %; Hemoglobin 9.1 g/dL (11.5-15.3); Lymphocytes # 1.3 10^3/uL (0.8-4.8); Lymphocytes % 22.8 %; Mean Corpuscular HGB Conc 33.7 g/dL (30.0-36.0); Mean Corpuscular Hemoglobin 30.1 pg (28.0-34.0); Mean Corpuscular Volume 89.4 fl (81-99); Mean Platelet Volume 9.9 fL (7.4-10.4); Monocytes # 0.4 10^3/uL (0.2-0.9); Monocytes % 7.6 %; Neutrophils # 3.98 10^3/uL (1.8-7.7); Neutrophils % 68.8 %; Nucleated Red Blood Cells % 0 %; Platelet Count 107 10^3/cmm (130-400); Red Blood Count 3.02 10^6/uL (4.1-5.3); Red Cell Distribution Width 13.8 % (12.1-15.1); White Blood Count 5.8 10^3/uL (4.0-10.0)
[2022-07-11 01:35] LABS: Anion Gap 12.2 (5-19); Blood Urea Nitrogen 8 mg/dL (8-23); Calcium 8.1 mg/dL (8.5-10.5); Carbon Dioxide 24 mmol/L (22-29); Chloride 105 mmol/L (98-107); Glomerular Filtration Rate 162.3 mL/min (90-130); Glucose 107 mg/dL (65-115); Osmolality Calculated 285 mOsm/kg (285-295); Potassium 3.2 mmol/L (3.5-5.1); Sodium 138 mmol/L (136-145)
[2022-07-11] MEDS: HYDROmorphone 1 mg/mL INJ 1 mL 0.2 MG IVP ×2 (03:03→15:55)
[2022-07-11] MEDS: HYDROcodone-acetaminophen 5-325 mg Tablet PO ×4 (03:03→20:16)
[2022-07-11] MEDS: tizanidine 4 mg Tablet 6 MG PO ×3 (03:07→20:29)
[2022-07-11] MEDS: lactated ringers 1,000 ML 90 ML IV (06:04)
[2022-07-11] MEDS: ketorolac 30 mg/mL INJ IVP ×2 (07:41→22:32)
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
[2022-07-11] MEDS: lamoTRIgine 100 mg Tablet PO (09:30)
[2022-07-11] MEDS: meloxicam 7.5 mg tablet 15 MG PO (09:30)
[2022-07-11] MEDS: docusate sodium 100 mg Capsule PO ×2 (09:30→17:22)
[2022-07-11] MEDS: montelukast sodium 10 mg Tablet PO (09:30)
[2022-07-11] MEDS: potassium chloride ER 20 mEq Tablet 40 MEQ PO (09:30)
[2022-07-11] MEDS: pantoprazole DR 40 mg Tablet PO ×2 (09:30→17:22)
--- NOTE | 2022-07-11 10:51 | PC.CHAP ---
Pastoral Care Encounter/Spiritual Assessment Type of Contact [] Declined scalloper visit [] Patient/Family/Request visit [] Outpatient visit [] Follow-up visit [] Physician referral [] Code/Alert [x] Routine visit [] Staff referral [] Actively dying [x] Patient sleeping [] Family support [] [] Out of room [] Palliative care [] [] Receiving care in room [] Pre-surgical visit [] Trauma [] Long length of stay [x] ICU visit [] Other: Relational/Emotional Strength [] Patient feels connected with others/family/visitors/staff [] Distress [] Loneliness/isolation [] Abandonment Spirituality of Patient [] Person of Vicki [] Attends Evangelical of their Vicki [] Believes in Prayer [] Reads Bible or Holiness materials [] There are Spiritual issues to be addressed Cnc Machine Programmer Interventions [x] Prayer [] Active listening [] Non-anxious presence [] Spiritual/emotional support [] Crisis/trauma care [] Spiritual counseling [] Bereavement support [] Provided bereavement packet [] Provided Bible/devotional materials [] Provided toy/stuffed animal, coloring book to patient or family member [] Provided Communion [] Anointing/Azalea [] Salvation [x] Completed spiritual assessment [] Other: Impact on Illness or Injury [] Angry [] Fearful [] Anxious [] Often cries [] Exhaustion [] Unable to work [] Unable to attend buddhism [] Unable to walk/stand [] Unable to read [] Unable to drive [] Unable to eat/drink [] Unable to sleep [] Unable to be with family [] Patient intubated [] Other: Summary Time spent with patient
[2022-07-11] MEDS: sodium chloride 0.9% 1,000 ML 100 ML IV (11:05)
[2022-07-11] MEDS: enoxaparin 40 mg/0.4 mL Syringe SUBCUT (11:06)
[2022-07-11 13:19] LABS: Basophils % 0.2 %; Eosinophils % 0.7 %; Hemoglobin 9.1 g/dL (11.5-15.3); Lymphocytes # 1.7 10^3/uL (0.8-4.8); Lymphocytes % 29.6 %; Mean Corpuscular HGB Conc 33.7 g/dL (30.0-36.0); Mean Corpuscular Hemoglobin 30.1 pg (28.0-34.0); Mean Corpuscular Volume 89.4 fl (81-99); Mean Platelet Volume 9.7 fL (7.4-10.4); Monocytes # 0.3 10^3/uL (0.2-0.9); Monocytes % 4.9 %; Neutrophils # 3.67 10^3/uL (1.8-7.7); Neutrophils % 64.2 %; Nucleated Red Blood Cells % 0 %; Platelet Count 135 10^3/cmm (130-400); Red Blood Count 3.02 10^6/uL (4.1-5.3); Red Cell Distribution Width 13.7 % (12.1-15.1); White Blood Count 5.7 10^3/uL (4.0-10.0)
--- NOTE | 2022-07-11 14:29 | P.PN_ITS ---
Subjective Subjective: seen this am no acute events overnight hb stable Vitals/I&O/Wt Last Vital Signs Temp 99.3 F 07/11/22 06:00 Pulse 86 07/11/22 14:00 Resp 16 07/11/22 14:00 BP 146/77 07/11/22 14:00 Pulse Ox 100 07/11/22 14:00 O2 Del Method 07/11/22 14:00 O2 Flow Rate 40 07/08/22 19:10 FiO2 30 07/09/22 06:30 07/10/22 07/11/22 07/11/22 22:59 06:59 14:59 Intake Total 1890 / 2780 1134 / 3914 1145 / 1145 Output Total 800 / 2800 750 / 3550 700 / 700 Balance 1090 / -20 384 / 364 445 / 445 Physical Exam 2 Narrative: Patient is laying on her side. On room air at this time. Awake and alert Able to follow commands No significant asterixis Currently on AVAPS Settings mentioned in the HPI Abdomen soft No signs of edema No focal deficits noted No distress at the time of evaluation She S1, S2 Bilateral equal breath sounds Urinary Catheter Management: Epstein: Cath Placed During This Visit: yes Reason for Continuing Indwelling Catheter: Accurate Measurement of Urinary Out put in Critically Ill Patients Urinary Catheter Date of Insertion: 07/08/22 Urinary Catheter Time of Insertion: 12:12 Data 07/11/22 13:05 07/11/22 01:00 A&P Assessment and plan (1) Facet arthropathy, lumbar: (2) Spinal stenosis, lumbar region, with neurogenic claudication: (3) Postoperative acute respiratory failure: Plan Postoperative respiratory compromise secondary to anesthesia with underlying COPD history. Patient is awake and alert No signs of worsening of confusion or respiratory distress Patient is now on room air. Able to follow commands alert oriented x3. Patient is able to follow commands, Pain medications as per primary team. Patient on room air. Patient smokes 1 pack/day, she carries history of known oxygen dependent COPD 1400 mL estimated blood loss during surgery s/p 2 units of blood today transfuse < 7 hb stable 9.1 ok to transfer to floor today Full code DVT prophylaxis : lovenox. but on hold today Opioids and bowel regimen added as per orthopedics DuoNeb every 4 as needed, no active signs of wheezing, no need of steroids Attestations Medical Necessity Statement*: per primary team. Procedures Arterial Line Size (Gauge): 20 Coding Level of Care Code Acute Corporate Administrator for Chg Fwd Diagnoses Facet arthropathy, lumbar M47.816 Spinal stenosis, lumbar region, with neurogenic claudication M48.062 Postoperative acute respiratory failure J95.821
[2022-07-11] MEDS: methocarbamol 750 mg Tablet PO (17:22)
[2022-07-11] MEDS: ondansetron 2 mg/ML SDV 2 mL 4 MG IVP (20:09)
[2022-07-11] MEDS: trazodone 150 mg Tablet PO (20:30)
[2022-07-11] MEDS: alum-mag-hydroxide-sime 30 mL UDC PO (22:28)
[2022-07-12] VITALS: BP 170/72; PULSE 70; RESP 16; TEMP 37.1; O2SAT 97
[2022-07-12] MEDS: magnesium hydroxide 30 mL UDC PO (01:06)
[2022-07-12 02:07] LABS: Basophils % 0.3 %; Hematocrit 28.9 % (37.0-47.0); Hemoglobin 9.8 g/dL (11.5-15.3); Lymphocytes # 0.7 10^3/uL (0.8-4.8); Mean Corpuscular HGB Conc 33.9 g/dL (30.0-36.0); Mean Corpuscular Hemoglobin 30.2 pg (28.0-34.0); Mean Corpuscular Volume 88.9 fl (81-99); Mean Platelet Volume 10.2 fL (7.4-10.4); Monocytes # 0.2 10^3/uL (0.2-0.9); Monocytes % 3.3 %; Neutrophils # 5.65 10^3/uL (1.8-7.7); Neutrophils % 84.9 %; Nucleated Red Blood Cells % 0 %; Platelet Count 158 10^3/cmm (130-400); Red Blood Count 3.25 10^6/uL (4.1-5.3); Red Cell Distribution Width 13.2 % (12.1-15.1); White Blood Count 6.7 10^3/uL (4.0-10.0)
[2022-07-12 02:38] LABS: Anion Gap 15.3 (5-19); Blood Urea Nitrogen 8 mg/dL (8-23); Calcium 8.4 mg/dL (8.5-10.5); Carbon Dioxide 26 mmol/L (22-29); Chloride 99 mmol/L (98-107); Glomerular Filtration Rate 162.3 mL/min (90-130); Glucose 137 mg/dL (65-115); Osmolality Calculated 284 mOsm/kg (285-295); Potassium 3.3 mmol/L (3.5-5.1); Sodium 137 mmol/L (136-145)
[2022-07-12 03:23] VITALS: BP 147/75; PULSE 75; RESP 14; TEMP 37.3; O2SAT 98
[2022-07-12] MEDS: HYDROcodone-acetaminophen 5-325 mg Tablet PO (03:25)
[2022-07-12] MEDS: ondansetron 2 mg/ML SDV 2 mL 4 MG IVP (04:04)
[2022-07-12] MEDS: methocarbamol 750 mg Tablet PO (05:24)
[2022-07-12] MEDS: HYDROmorphone 1 mg/mL INJ 1 mL 0.2 MG IVP (05:42)
[2022-07-12 07:56] VITALS: BP 153/74; PULSE 80; RESP 17; TEMP 36.8; O2SAT 94
[2022-07-12 08:00] VITALS: PULSE 85; RESP 18; O2SAT 95
--- NOTE | 2022-07-12 08:33 | P.PN_ITS ---
Subjective Subjective: seen this am no acute events overnight hemoglobin stable plan for dc today by ortho service Vitals/I&O/Wt Last Vital Signs Temp 98.3 F 07/12/22 07:56 Pulse 80 07/12/22 07:56 Resp 17 07/12/22 07:56 BP 153/74 07/12/22 07:56 Pulse Ox 94 07/12/22 07:56 O2 Del Method 07/12/22 07:56 O2 Flow Rate 40 07/08/22 19:10 FiO2 30 07/09/22 06:30 07/11/22 07/12/22 07/12/22 22:59 06:59 14:59 Intake Total 240 / 1385 370 / 1755 Output Total 650 / 1350 Balance -410 / 35 370 / 405 Physical Exam 2 Narrative: Patient is laying on her side. On room air at this time. Awake and alert Able to follow commands Abdomen soft No distress at the time of evaluation She S1, S2 Bilateral equal breath sounds, clear to auscultation Urinary Catheter Management: Epstein: Cath Placed During This Visit: yes, but has since been removed by the nurse Reason for Continuing Indwelling Catheter: Decision to DC Catheter Urinary Catheter Date of Insertion: 07/08/22 Urinary Catheter Time of Insertion: 12:12 Date Urinary Catheter Removed: 07/11/22 Time Urinary Catheter Discontinued: 18:17 Data 07/12/22 01:19 07/12/22 01:19 A&P Assessment and plan (1) Facet arthropathy, lumbar: (2) Spinal stenosis, lumbar region, with neurogenic claudication: (3) Postoperative acute respiratory failure: Plan Postoperative respiratory compromise secondary to anesthesia with underlying COPD history. Patient is awake and alert No signs of worsening of confusion or respiratory distress Patient is now on room air. Able to follow commands alert oriented x3. Patient is able to follow commands, Pain medications as per primary team. Patient on room air. Patient smokes 1 pack/day, she carries history of known oxygen dependent COPD 1400 mL estimated blood loss during surgery s/p 2 units of blood today transfuse < 7 hb stable 9.8 ok to dc from medical standpoint Full code DVT prophylaxis : lovenox. Opioids and bowel regimen added as per orthopedics DuoNeb every 4 as needed, no active signs of wheezing, no need of steroids Attestations Medical Necessity Statement*: per primary team Procedures Arterial Line Size (Gauge): 20 Coding Level of Care Code Acute Information Engineer for Chg Fwd Diagnoses Facet arthropathy, lumbar M47.816 Spinal stenosis, lumbar region, with neurogenic claudication M48.062 Postoperative acute respiratory failure J95.821
[2022-07-12] MEDS: duloxetine 60 mg Capsule PO (10:40)
[2022-07-12] MEDS: lamoTRIgine 100 mg Tablet PO (10:40)
[2022-07-12] MEDS: docusate sodium 100 mg Capsule PO (10:40)
[2022-07-12] MEDS: montelukast sodium 10 mg Tablet PO (10:40)
[2022-07-12] MEDS: pantoprazole DR 40 mg Tablet PO (10:41)
[2022-07-12] MEDS: meloxicam 7.5 mg tablet 15 MG PO (10:42)
[2022-07-12 11:41] VITALS: BP 145/75
[2022-07-12] MEDS: duloxetine 30 mg Capsule PO (11:51)
--- NOTE | 2022-07-12 12:08 | PM.DCS ---
Discharge Providers Date of Admission: 07/08/22 16:07 Date of Discharge: July 12, 2022 Attending Provider at Admission: Otto Cabral DO Attending Provider at Discharge: Otto Cabral DO Primary Care Provider: Alberto Davenport MD Diagnoses at Discharge Discharge Diagnosis (1) Facet arthropathy, lumbar: Status: Acute (2) Spinal stenosis, lumbar region, with neurogenic claudication: Status: Acute (3) Postoperative acute respiratory failure: Status: Acute Reason for Visit Reason for Visit: Spinal Fusion [id number]/[id number]/6304 Hospital Course Hospital Course Patient was in the ICU for 2 days she had low hemoglobin from surgery. He was given 2 units of blood and will transfer the floor and will be discharged today. Physical Exam Narrative: Sitting at bedside pain is controlled. Complaining of nausea with the pain meds send her home with Zofran. Urinary Catheter Management: Epstein: Cath Placed During This Visit: yes, but has since been removed by the nurse Reason for Continuing Indwelling Catheter: Decision to DC Catheter Urinary Catheter Date of Insertion: 07/08/22 Urinary Catheter Time of Insertion: 12:12 Date Urinary Catheter Removed: 07/11/22 Time Urinary Catheter Discontinued: 18:17 Discharge Data Studies Completed and Pending Completed Studies During Hospitalization Category Date Time Status XR chest 1V portable [id number] Stat Exams 07/08/22 20:01 Completed XR lumbar spine 1V [id number] Routine Exams 07/08/22 Completed XR thoracolumbar junct [id number] Routine Exams 07/09/22 07:53 Completed Radiology Impressions Chest X-Ray 07/08/22 20:01 IMPRESSION: No acute finding. Thoracolumbar Spine 07/09/22 07:53 IMPRESSION: 1. Posterior interbody fusion extending from T10 to S1 in satisfactory position. Laboratory Results WBC 6.7 10^3/uL (4.0-10.0) 07/12/22 01:19 Corrected WBC Cancelled 07/10/22 13:47 RBC 3.25 10^6/uL (4.1-5.3) L 07/12/22 01:19 Hgb 9.8 g/dL (11.5-15.3) L 07/12/22 01:19 Hct 28.9 % (37.0-47.0) L 07/12/22 01:19 MCV 88.9 fl (81-99) 07/12/22 01:19 MCH 30.2 pg (28.0-34.0) 07/12/22 01:19 MCHC 33.9 g/dL (30.0-36.0) 07/12/22 01:19 RDW 13.2 % (12.1-15.1) 07/12/22 01:19 Plt Count 158 10^3/cmm (130-400) 07/12/22 01:19 MPV 10.2 fL (7.4-10.4) 07/12/22 01:19 Gran % Cancelled 07/10/22 13:47 Neut % (Auto) 84.9 % 07/12/22 01:19 Lymph % (Auto) 11.0 % 07/12/22 01:19 Bay % (Auto) 3.3 % 07/12/22 01:19 Eos % (Auto) 0.0 % 07/12/22 01:19 Baso % (Auto) 0.3 % 07/12/22 01:19 Neut # (Auto) 5.65 10^3/uL (1.8-7.7) 07/12/22 01:19 Lymph # (Auto) 0.7 10^3/uL (0.8-4.8) L 07/12/22 01:19 Bay # (Auto) 0.2 10^3/uL (0.2-0.9) 07/12/22 01:19 Eos # (Auto) 0.0 10^3/uL (0.0-0.8) 07/12/22 01:19 Baso # (Auto) 0.0 10^3/uL (0.0-0.1) 07/12/22 01:19 Absolute Gran (auto) Cancelled 07/10/22 13:47 Nucleated RBC % (auto) 0 % 07/12/22 01:19 Nucleated RBCs # 0.0 /100WBC 07/12/22 01:19 Specimen Type Arterial 07/09/22 04:00 Sample Site Radial, right 07/09/22 04:00 ABG pH 7.29 (7.35-7.45) L 07/09/22 04:00 ABG pCO2 48.9 mmHg (35-45) H 07/09/22 04:00 ABG pO2 122.0 mmHg (80.0-100.0) H 07/09/22 04:00 ABG HCO3 23.6 mmol/L (22-26) 07/09/22 04:00 ABG O2 Saturation 99.7 07/08/22 19:55 ABG Base Excess -3.0 mmol/L (-2.0-2.0) L 07/09/22 04:00 Justo Test Pos 07/09/22 04:00 A-a O2 Gradient 0.5 mmHg (5-10) L 07/08/22 19:55 Hematocrit 28.0 % (37-47) L 07/09/22 04:00 Hgb O2 Saturation 97.3 % (95-100) 07/08/22 19:55 Carboxyhemoglobin 1.1 %THgb (0.4-20.1) 07/08/22 19:55 Methemoglobin 1.4 % (0.4-1.5) 07/08/22 19:55 Total Hemoglobin 10.0 g/dL (12-16) L 07/08/22 19:55 Sodium 141.0 mmol/L (131-143) 07/08/22 19:55 Potassium 4.4 mmol/L (3.5-5.0) 07/08/22 19:55 Glucose 180.0 mg/dL (70-115) H 07/08/22 19:55 Ionized Calcium 1.2 mmol/L (1.1-1.4) 07/08/22 19:55 O2 Delivery Device Bipap 07/09/22 04:00 FiO2 30.0 % 07/09/22 04:00 PEEP 6.0 cmH20 07/09/22 04:00 Field Recruiter ID ellpe 07/09/22 04:00 Sodium 137 mmol/L (136-145) 07/12/22 01:19 Potassium 3.3 mmol/L (3.5-5.1) L 07/12/22 01:19 Chloride 99 mmol/L (98-107) 07/12/22 01:19 Carbon Dioxide 26 mmol/L (22-29) 07/12/22 01:19 Anion Gap 15.3 (5-19) 07/12/22 01:19 BUN 8 mg/dL (8-23) 07/12/22 01:19 Creatinine 0.4 mg/dL (0.5-0.9) L 07/12/22 01:19 GFR Calculation 162.3 mL/min (90-130) H 07/12/22 01:19 Glucose 137 mg/dL (65-115) H 07/12/22 01:19 POC Glucose 220 mg/dL (70-110) H 07/08/22 19:50 Calculated Osmolality 284 mOsm/kg (285-295) L 07/12/22 01:19 Calcium 8.4 mg/dL (8.5-10.5) L 07/12/22 01:19 Urine Opiates Screen Positive ng/mL (Negative) H 07/08/22 20:17 Ur Barbiturates Screen Negative ng/mL (Negative) 07/08/22 20:17 Ur Phencyclidine Scrn Negative ng/mL (Negative) 07/08/22 20:17 Ur Amphetamines Screen Negative ng/mL (Negative) 07/08/22 20:17 U Benzodiazepines Scrn Negative ng/mL (Negative) 07/08/22 20:17 Urine Cocaine Screen Negative ng/mL (Negative) 07/08/22 20:17 U Marijuana (THC) Screen Positive ng/mL (Negative) H 07/08/22 20:17 Blood Type O Positive 07/08/22 10:35 Rho(D) Type Positive 07/08/22 10:35 Antibody Screen Negative 07/08/22 10:35 Crossmatch See Detail 07/08/22 10:35 Vitals Last Vital Signs Temp 98.3 F 07/12/22 07:56 Pulse 85 07/12/22 08:00 Resp 18 07/12/22 08:00 BP 145/75 07/12/22 11:41 Pulse Ox 95 07/12/22 08:00 O2 Del Method 07/12/22 08:00 O2 Flow Rate 40 07/08/22 19:10 FiO2 30 07/09/22 06:30 Discharge Plan Discharge Patient Disposition: Home Condition: Stable Prescriptions: New hydrocodone-acetaminophen 5-325 mg tablet 1 - 2 tab PO .Q4-6H Qty: 40 0RF ondansetron HCl 4 mg tablet 4 mg PO Q4H PRN (Reason: nausea and vomiting) 5 Days Qty: 30 0RF Continued Flovent HFA 44 mcg/actuation HFA aerosol inhaler 2 puff INHALATION BID gabapentin 600 mg tablet 600 mg PO .Five times daily PRN (Reason: UNKNOWN) duloxetine [Cymbalta] 60 mg capsule,delayed release(DR/EC) 60 mg PO DAILY Qty: 30 2RF lamotrigine 100 mg tablet 100 mg PO DAILY Qty: 30 2RF meloxicam 15 mg tablet 15 mg PO DAILY Qty: 60 1RF hydrocodone-acetaminophen 5-325 mg tablet 1 tab PO Q4H PRN (Reason: pain) 5 Days Qty: 30 0RF (DME) Intraoperative Neuromonitoring See Rx Instructions .Route .MEDSUPPLY Qty: 1 0RF Rx Instructions: As directed tizanidine 4 mg tablet See Rx Instructions .ROUTE .COMPLEX Rx Instructions: 4 mg orally TAKE 1 AND 1/2 TAB TID PRN FOR MUSCLE SPASMS. methocarbamol 750 mg tablet 750 mg PO Q8H PRN (Reason: Muscle spasms and pain) Qty: 20 0RF pantoprazole 40 mg tablet,delayed release (DR/EC) 40 mg PO BID montelukast 10 mg tablet 10 mg PO DAILY duloxetine 30 mg capsule,delayed release(DR/EC) 30 mg PO DAILY Rexulti 2 mg tablet 2 mg PO DAILY trazodone 100 mg tablet 150 mg PO .HS Discharge Orders: Discharge Order (Routine); Ordered 07/12/22 Ordered By: Otto Cabral Other Ambulatory Orders: DME: Walker (Order) Location: None Selected Ordered By: Otto Cabral Referrals: Otto Cabral, DO [Physician] - 2 weeks (We were unable to make your follow up appointments due to the holidays. Please call Friday to make your follow up appoinment with [facility] Orthopedic office in 2 weeks. ) Discharge Diet: Advance as tolerated Discharge Activity: Limit activity as instructed Patient Instructions: Hydrocodone (By mouth), Lumbar Spinal Fusion (DC), Opioid Safety, Post Anesthesia Care Activity Restrictions/Additional Instructions: Thank you for [facility] for your care! The following is a list of instructions, from your provider, to follow upon your discharge to ensure you have the optimal recovery from your recent injury orsurgery. Follow-up care is a davis part of your treatment and safety. Be sure to make and go to all appointments, and call your doctor if you are having problems. If you do not already have a follow-up appointment made, call Dr. Cabral office in the next 1-3 days to make follow up appointment for 1 weeks at [phone]. It is also a good idea to know your test results and keep a list of the medicines you take. Medications will be prescribed for you at your provider's discretion. These medications are to be used as instructed; if they are taken more often that prescribed they will not be refilled early and in most cases will not be refilled at all. > When a refill is needed,you should contact krista ruelas 2-3 business days before your prescription runs out. Medications will NOT be refilled by injection mold tooling technician providers after hours! > Many pain medications contain Tylenol (Acetaminophen). Do not consume more than 4,000 mg of Tylenol per day in total with any combination ofmedications. > Pain medications can cause constipation. Please use an over the counter stool softener as directed, while taking pain medications. Consulty our local pharmacist with questions or recommendations on stool softeners. If constipation persists, contact our office or your primary care provider. > While under our care,you are not to receive pain medications or other controlled substances from any other provider unless our office is notified and approves. Any attempts to do so will result in refusal to prescribe any further pain medications and possible dismissal from our practice. ? Keep dressing covered at all times. We will change dressing for you in 1 week in the clinic. ? Walking is essential for the healing process after surgery. We would like you to slowly advance your walking. This should be done on relatively flat clear ground (inside or out) or can be done on a treadmill. Remember this goal does not have to happen all at once, slowly increase your distance and duration. This can be broken into more more than one walk per day as tolerated. Patients who walk as directed after surgery rarely require Physical Therapy. In the unlikely event this issue arises your provider will direct hospital staff to make the appropriate arrangements. ? No lifting over 5 pounds {a gallon of milk) or bending/twisting until further notice. Each of these activities places an unnecessary amount of stress onto the body and can impede the delicate healing process. > Instead of bending at the waist, keep your back straight and bend at the knees. > Instead of twisting your torso, keep your back straight and turn your entire body with your feet. ? You may sleep in any position which makes you comfortable. Many patients find comfort sleeping in a reclining chair. It is not abnormal to have difficulty sleeping for the first several weeks following your surgery. We recommend trying Benadry! or Tylenol PM as directed to help with your sleeping difficulties. Both medications are over the counter and available withoutprescription. ? NO SMOKING!!! Smoking dramatically increases the probability of developing postoperative wound infections. ? Common complaints after lumbar and/or thoracic spine surgery include, but are not limited to: numbness and/or tingling in the legs, pain around the incision and surrounding tissues, muscle spasms, or stiffness of the middle to low back. Contact our office if these symptoms persist or if an acute change occurs. ? No driving for the first 3-5days, and not while taking narcotics until seen at your follow-up appointment and cleared. There are no restrictions for riding on short trips, however if you take a longer trip, arrangements should be made to make regular stops to get out of the vehicle and stretch . ? Swelling is an unfortunate event that will take place with any surgery and is the primary source of your postoperative discomfort. While walking and regular approved activities helps control inflammation, there are additional steps you can take to minimizeswelling. > Place ice over the surgical site and surrounding tissue for twenty minutes, followed by applying a low/medium heat (heating pad) for an additional twenty minutes every 1-2 hours as needed for painrelief. > You may use of over the counter anti-inflammatory medications (Ibuprofen, Motrin, Aleve, Advil, etc) as directed on the package label. These types of medicines wm significantly reduce the amount of discomfort you experience after surgery from swelling. It should be noted that if you have and allergy to any of these medications, or a history of ulcers or kidney disease you should consult you primary care provider prior to starting these medications. Discharge Attestations Time Spent in Discharge Care*: less than 30 min Quality Metrics Clinical Quality Measures [ No reported AMI, CVA or VTE this stay] Coding Level of Care Code Acute g [facility] note Diagnoses Facet arthropathy, lumbar M47.816 Spinal stenosis, lumbar region, with neurogenic claudication M48.062 Postoperative acute respiratory failure J95.821
== END 2022-07-12 13:22 | disposition home or self-care (01) | DRG 457 ==
LOC: ICU 19:43 → MEDSURG 07-12 00:49
PROVIDERS: Anesthesiology; Internal Medicine; Admitting Provider Orthopaedic Surgery; PCP Family Medicine; Visit Provider Orthopaedic Surgery
PROC: 0RG707J Fusion of 2 to 7 Thoracic Vertebral Joints with Autologous Tissue Substitute, Posterior Approach, Anterior Column, Open Approach (ICD-10-PCS; principal; 2022-07-08 12:10)
PROC: 0RG707J Fusion of 2 to 7 Thoracic Vertebral Joints with Autologous Tissue Substitute, Posterior Approach, Anterior Column, Open Approach (ICD-10-PCS; CPT 63005; 2022-07-08 12:10)
DX: M48.062 Spinal stenosis, lumbar region with neurogenic claudication (principal); D62 Acute posthemorrhagic anemia; F33.9 Major depressive disorder, recurrent, unspecified; J44.1 Chronic obstructive pulmonary disease with (acute) exacerbation; M47.816 Spondylosis without myelopathy or radiculopathy, lumbar region; Z79.51 Long term (current) use of inhaled steroids; Z79.891 Long term (current) use of opiate analgesic; F12.10 Cannabis abuse, uncomplicated; F41.1 Generalized anxiety disorder; F43.12 Post-traumatic stress disorder, chronic; F17.210 Nicotine dependence, cigarettes, uncomplicated
CPT/HCPCS: 36415; 36416; 36430; 36600; 51702; 71045; 72020; 72080; 76000; 80048; 80051; 80306; 82330; 82803; 82805; 82962; 85025; 86850; 86900; 86920; 93306; 94640; 94660; 96372; 97110; 97116; 97161; 97530; C1713; C9359; J0330; J0690; J1100; J1170; J1644; J1650; J1885; J1940; J2250; J2270; J2405; J2704; J3010; J3370; J3490; J7030; J7120; J7626; P9016; P9045

== ENCOUNTER → 2022-07-30 09:11 | Outpatient (BNVA) | payer MEDICARE, MEDICAID, SELFPAY | PROVIDERS: PCP Family Medicine; Visit Provider Orthopaedic Surgery | DX: Z47.89 Encounter for other orthopedic aftercare (principal); Z98.1 Arthrodesis status | CPT/HCPCS: 99024 ==

== ENCOUNTER → 2022-09-03 13:00 | Outpatient (BNVA) | payer MEDICARE, MEDICAID, SELFPAY | PROVIDERS: PCP Family Medicine; Visit Provider Orthopaedic Surgery | DX: Z47.89 Encounter for other orthopedic aftercare (principal); Z98.1 Arthrodesis status | CPT/HCPCS: 72100; 99024 ==

== ENCOUNTER → 2022-09-24 13:13 | Outpatient (BNVA) | payer MEDICARE, MEDICAID, SELFPAY | PROVIDERS: PCP Family Medicine; Visit Provider Orthopaedic Surgery | DX: Z47.89 Encounter for other orthopedic aftercare (principal); Z98.1 Arthrodesis status | CPT/HCPCS: 72100; 99024 ==

== ENCOUNTER 2022-09-24 15:22 | Outpatient (CLI) | payer MEDICARE, MEDICAID, SELFPAY | END 2022-09-24 15:23 | disposition home or self-care (01) | LOC: SPT 15:23 | PROVIDERS: PCP Family Medicine; Visit Provider Orthopaedic Surgery | DX: Z46.89 Encounter for fitting and adjustment of other specified devices (principal); M48.062 Spinal stenosis, lumbar region with neurogenic claudication; Z98.1 Arthrodesis status | CPT/HCPCS: 97760; L0456 ==

== ENCOUNTER 2022-10-15 16:27 | Outpatient (CLI) | payer MEDICARE, MEDICAID, SELFPAY ==
--- NOTE | 2022-10-15 16:30 | CT_ITS ---
WS: [id number] CT THORACIC SPINE TECHNIQUE: Noncontrast CT of the thoracic spine with coronal and sagittal reformatted images. CLINICAL INFORMATION: back pain COMPARISON: MRI 2007 DLP: 610.[address] scans at [facility] use at least one of these dose optimization techniques: automated e xposure control; mA and/or kV adjustment per patient size (includes targeted exams where dose is matc hed to clinical indication); or iterative reconstruction. FINDINGS: Postoperative changes pedicle screw fixation with interconnecting rods new since the MRI in 2006. Thi s extends from T10 off the [id number] to the sacrum on the check out cashier imaging. Bilateral sacroiliac fix ation screws. S-shaped thoracolumbar scoliosis. Mild thoracic kyphosis. No high-grade central canal s tenosis. No acute appearing compression fractures. Small amount of lucency along the T10 pedicle scre ws. Otherwise no evidence of hardware loosening. Dorsal interconnecting rods are intact. Slight atele ctasis in the lung bases. Cholecystectomy clips. Adrenal glands are normal. CT/CT thoracic spin wo con* [id number] IMPRESSION: 1. S-shaped thoracolumbar scoliosis. 2. Prior postoperative changes extensive pedicle screw fixation T10-S1 with bi lateral sacroiliac fixation screws. 3. Thoracic hardware appears in good position. Small amount of lucency along t he T10 pedicle screws. Thoracic hardware is otherwise normal. 4. No significant central canal stenosis in the thoracic spine. 5. No acute compression fractures. 6. No other remarkable findings.
== END 2022-10-15 16:28 | disposition home or self-care (01) ==
LOC: RAD 16:28
PROVIDERS: PCP Family Medicine; Visit Provider Orthopaedic Surgery
DX: M54.6 Pain in thoracic spine (principal); M41.85 Other forms of scoliosis, thoracolumbar region
CPT/HCPCS: 72128

== ENCOUNTER → 2022-10-17 08:04 | Outpatient (BNVA) | payer MEDICARE, MEDICAID, SELFPAY | PROVIDERS: PCP Family Medicine; Visit Provider Orthopaedic Surgery | DX: M54.50 Low back pain, unspecified (principal) | CPT/HCPCS: 99214 ==

== ENCOUNTER 2022-10-23 08:07 | Outpatient (RCR) | payer MEDICARE, MEDICAID, SELFPAY | END 2022-11-17 23:59 | disposition home or self-care (01) | LOC: SPT 08:07 | PROVIDERS: PCP Family Medicine; Visit Provider Orthopaedic Surgery | DX: Z98.1 Arthrodesis status (principal) | CPT/HCPCS: 97110; 97161 ==

== ENCOUNTER 2022-11-18 06:00 | Outpatient (RCR) | payer MEDICARE, MEDICAID, SELFPAY | END 2022-12-18 23:59 | disposition home or self-care (01) | LOC: SPT 06:00 | PROVIDERS: PCP Family Medicine; Visit Provider Orthopaedic Surgery | DX: Z98.1 Arthrodesis status (principal) | CPT/HCPCS: 97110 ==

== ENCOUNTER → 2022-12-12 11:05 | Outpatient (BNVA) | payer MEDICARE, MEDICAID, SELFPAY | PROVIDERS: PCP Family Medicine; Visit Provider Orthopaedic Surgery | DX: M54.50 Low back pain, unspecified (principal); Z98.1 Arthrodesis status; Z98.890 Other specified postprocedural states | CPT/HCPCS: 72100; 99214 ==

== ENCOUNTER 2022-12-19 06:00 | Outpatient (RCR) | payer MEDICARE, MEDICAID, SELFPAY | END 2023-01-17 23:59 | disposition home or self-care (01) | LOC: SPT 06:00 | PROVIDERS: PCP Family Medicine; Visit Provider Orthopaedic Surgery | DX: Z98.1 Arthrodesis status (principal) | CPT/HCPCS: 97110 ==

== ENCOUNTER 2023-01-18 06:00 | Outpatient (RCR) | payer MEDICARE, MEDICAID, SELFPAY | END 2023-01-24 23:59 | disposition home or self-care (01) | LOC: SPT 06:00 | PROVIDERS: PCP Family Medicine; Visit Provider Orthopaedic Surgery | DX: Z51.89 Encounter for other specified aftercare (principal) | CPT/HCPCS: 97110 ==

== ENCOUNTER → 2023-01-23 11:24 | Outpatient (BNVA) | payer MEDICARE, MEDICAID, SELFPAY | PROVIDERS: PCP Family Medicine; Visit Provider Orthopaedic Surgery | DX: Z98.1 Arthrodesis status (principal) | CPT/HCPCS: 72070; 99213 ==

== ENCOUNTER 2023-02-24 08:38 | Outpatient (CLI) | payer MEDICARE, MEDICAID, SELFPAY ==
--- NOTE | 2023-02-24 08:51 | CT_ITS ---
WS: [id number] LDCT LUNG CANCER SCREENING HISTORY: NICOTINE DEPENDENCE, CIGARETTES TECHNIQUE: Axial imaging performed from the apices to 1 cm below the costophrenic angles. Coronal and sagittal reformats are submitted with axial MIP series. All CT scans at [facility] use at least one of these dose optimization techniques: automated exposure control; mA and/or kV adjustment per patient size (includes targeted exams where dose is matched to clinical indication); or iterativ e reconstruction. DLP: 79.90 mGy.cm DIvol: Mean CTDIvol: 2.00 (mGy) COMPARISON: None available. Diagnostic quality: Satisfactory Lungs: Subsegmental areas of atelectasis in the RIGHT middle lobe and the lingula. No nodules or mass . No pneumonia. No endobronchial lesions. Heart: Normal size heart with no pericardial effusion.. Other findings: Very mild atherosclerotic plaque within the thoracic aorta. No adenopathy identified. Prior cholecystectomy. No adrenal mass. Posterior thoracolumbar fusion hardware. CT/CT lung screening [id number] IMPRESSION: LUNG-RADS: 1-Negative FOLLOW UP: 12 Month: Continue annual screening with LDCT OTHER FINDINGS (S MODIFIER): None.
== END 2023-02-24 08:39 | disposition home or self-care (01) ==
LOC: RAD 08:43
PROVIDERS: PCP Family Medicine; Visit Provider Physician Assistant
DX: Z12.2 Encounter for screening for malignant neoplasm of respiratory organs (principal); F17.210 Nicotine dependence, cigarettes, uncomplicated
CPT/HCPCS: 71271

== ENCOUNTER → 2023-11-13 08:01 | Outpatient (BNVA) | payer MEDICARE, MEDICAID, SELFPAY | PROVIDERS: PCP Family Medicine; Visit Provider Orthopaedic Surgery | DX: Z98.1 Arthrodesis status (principal); M48.062 Spinal stenosis, lumbar region with neurogenic claudication | CPT/HCPCS: 72100; 99214 ==

== ENCOUNTER 2023-11-20 11:38 | Outpatient (CLI) | payer MEDICARE, MEDICAID, SELFPAY ==
--- NOTE | 2023-11-20 12:00 | CTR_ITS ---
PROCEDURE INFORMATION: Exam: CT Lumbar Spine With Contrast Exam date and time: 11/20/2023 12:28 PM Age: 63 years old Clinical indication: Low back pain; Prior surgery; Surgery date: 6+ months; Surgery type: Back, gb; Patient HX: History--back pain after working out, felt a pop 2 weeks ago. Surgery jun TECHNIQUE: Imaging protocol: Computed tomography of the lumbar spine with contrast. Radiation optimization: All CT scans at this facility use at least one of these dose optimization techniques: automated exposure control; mA and/or kV adjustment per patient size (includes targeted exams where dose is matched to clinical indication); or iterative reconstruction. Contrast material: OMNI 350; Contrast volume: 100 ml; Contrast route: INTRAVENOUS (IV); COMPARISON: MR lumbar spine wo con* [id number] 01/25/2022 1:24 PM RADIATION DOSE METRICS: Total DLP (mGy-cm): 1605.32 FINDINGS: Tubes, catheters and devices: Hardware appears intact. Bones/joints: T10 through SI joint instrumentation. Laminectomy L3-L4, L4-L5, L5-S1. Mild anterolisthesis L4-L5. Lucency surrounding the T10 and to lesser extent T11 and the SI joint screws. Probable L4 vertebral body hemangioma. [place] leftward lumbar curvature. No central stenosis. No significant bony neural foraminal narrowing. No acute fracture. Leftward lateral listhesis L4-L5. Gallbladder and bile ducts: Previous cholecystectomy. Soft tissues: Unremarkable. CT/CT lumbar spine w con [id number] IMPRESSION: 1. T10 through SI joint fusion. 2. Lucency surrounding the T10 and to lesser extent T11 and the SI joint screws. Possible motion. 3. No central stenosis. No significant bony neural foraminal narrowing. No acute fracture.
[2023-11-20 12:24] LABS: Blood Urea Nitrogen 11 mg/dL (8-23)
[2023-11-20] MEDS: iohexol 350 mg/mL 500 mL Btl (per mL) IV (12:34)
== END 2023-11-20 11:39 | disposition home or self-care (01) ==
LOC: RAD 11:39
PROVIDERS: PCP Family Medicine; Visit Provider Orthopaedic Surgery
DX: M48.062 Spinal stenosis, lumbar region with neurogenic claudication (principal); Z98.1 Arthrodesis status
CPT/HCPCS: 72132; 82565; 84520; Q9967

== ENCOUNTER → 2023-11-27 07:59 | Outpatient (BNVA) | payer MEDICARE, MEDICAID, SELFPAY | PROVIDERS: PCP Family Medicine; Visit Provider Orthopaedic Surgery | DX: M96.0 Pseudarthrosis after fusion or arthrodesis (principal); Z98.1 Arthrodesis status | CPT/HCPCS: 36415; 80053; 81001; 85025; 99214 ==

== ENCOUNTER → 2023-12-30 08:56 | Outpatient (BNVA) | payer MEDICARE, MEDICAID, SELFPAY | PROVIDERS: PCP Family Medicine; Visit Provider Family Medicine | DX: Z01.818 Encounter for other preprocedural examination (principal) | CPT/HCPCS: 80053; 81003; 85025; 87086 ==

== ENCOUNTER 2024-01-05 17:17 | Inpatient (IN) | payer MEDICARE, MEDICAID, SELFPAY ==
[2024-01-05] VITALS (23 sets, daily range): BP systolic 119–154; BP diastolic 65–112; PULSE 82–114; RESP 10–20; TEMP 36.3–36.8; O2SAT 76–100; BMI 38.7
[2024-01-05] MEDS: sodium chloride 0.9% 1,000 ML 30 ML IV (10:27)
[2024-01-05 11:02] LABS: Urine Color Yellow (Yellow)
[2024-01-05 11:03] LABS: Bilirubin Urine Neg (Negative); Blood Urine 2+ (Negative); Glucose Urine UA Norm (Normal); Ketones Urine Negative (Negative); Leukocyte Esterase Urine Negative (Negative); Nitrate Urine Negative (Negative); Protein Urine Neg (Negative); Urine Appearance Clear (CLEAR); Urobilinogen Urine Neg (Negative); pH Urine 5 (5-7)
[2024-01-05 11:04] LABS: Bacteria Urine TRACE /hpf; RBC Urine 0-4 /hpf (0-2); WBC Urine 0-4 /hpf (0-5)
[2024-01-05 11:05] LABS: Add Urine Culture? No
--- NOTE | 2024-01-05 11:33 | ANES.PREANE2 ---
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 Operation Date: 01/05/24 12:10 Proposed Procedures p Spinal Fusion PSF(Not Applicable) - Otto Cabral DO s Lumbopelvic Fixation(Not Applicable) - Otto Cabral DO s Sacroiliac Joint Fusion SI Joint Fusion(Not Applicable) - Otto Cabral DO Familial anesthetic complications: Post op-resp failure Was Beta Patricia taken within 24 hours: N/A Was Clonidine taken within 24 hours: N/A Last intake: Intake Last Liquid Date 01/04/24 Last Liquid Time 21:00 Last Solid Date 01/04/24 Last Solid Time 17:00 Social Tobacco and No alcohol Exam alert, oriented x 3, clear to auscultation bilaterally and regular rate & rhythm Airway Mallampati: Class II Dentition: other (no dentures) CV/HEM mild to mod AVR - no complaints of syncope, SOB/SHELTON, or chest pains GI Gastroesophageal Reflux Disease Anesthetic Plan ASA status: 3 Anesthesia: General Risk of > 500 ml blood loss (7ml/kg in children): Yes, adequate IV access and fluids planned Medications/Allergies Home Medications Medication Instructions Recorded Confirmed Last Taken Type fluticasone propionate 44 2 puff inhalation BID 09/14/19 01/05/24 01/05/24 History mcg/actuation HFA aerosol inhaler (Flovent HFA) gabapentin 600 mg tablet 600 mg PO .Five times daily PRN 10/19/19 01/05/24 01/05/24 History UNKNOWN duloxetine 60 mg capsule,delayed 60 mg PO DAILY #30 caps 10/20/19 01/05/24 01/05/24 Rx release (Cymbalta) lamotrigine 100 mg tablet 100 mg PO DAILY #30 tabs 10/20/19 01/05/24 01/05/24 Rx tizanidine 4 mg tablet See Rx Instructions .Route .COMPLEX 12/27/19 01/05/2422 History brexpiprazole 2 mg tablet (Rexulti) 2 mg PO DAILY 07/05/22 01/05/24 01/05/24 History duloxetine 30 mg capsule,delayed 30 mg PO DAILY 07/05/22 01/05/24 01/05/24 History release montelukast 10 mg tablet 10 mg PO DAILY 07/05/22 01/05/24 01/05/24 History pantoprazole 40 mg tablet,delayed 40 mg PO BID 07/05/22 01/05/24 01/05/24 History release trazodone 100 mg tablet 150 mg PO .HS 07/05/22 01/05/24 07/07/22 History Bone Growth Stimulator E0748 #1 ea 07/30/22 01/05/24 Unknown Rx TLSO Brace #1 ea 09/24/22 01/05/24 Unknown Rx sulfamethoxazole 800 1 tab PO BID 5 days #10 tabs 12/31/23 01/05/24 01/05/24 Rx mg-trimethoprim 160 mg tablet (Bactrim DS) oxycodone 10 mg tablet 10 mg PO TID PRN pain 7 days #21 01/01/24 01/05/24 01/05/24 Rx tabs Allergies Allergy/AdvReac Type Severity Reaction Status Date / Time No Known Allergies Allergy Verified 12/30/23 09:08 Current Medications Generic Name Dose Route Start Last Admin Trade Name Freq PRN Reason Stop Dose Admin Sodium Chloride 1,000 mls @ 30 mls/hr 01/05/24 09:45 01/05/24 10:27 Sodium Chloride 0.9% IV 01/06/24 09:44 30 mls/hr .Q24H ARJESH Administration PFSH Anesthesia Medical History Degenerative disc disease Cannabis use disorder, mild, abuse Post-traumatic stress disorder, chronic Major depressive disorder, recurrent severe without psychotic features Generalized anxiety disorder Social History Smoking and tobacco/nicotine status: current every day tobacco/nicotine user cigarettes Packs smoked per day: 1 Years cigarettes smoked: 25 Quit status (tobacco/nicotine): has tried quititng Number of times tried to quit tobacco: 1 Alcohol intake: former Substance/Drug Use: current Substance/Drug use frequency: daily Current gender identity: Female Data Anesthesia Urine 01/05/24 Range/Units 09:47 Urine Color Yellow (Yellow) Urine Appearance Clear (CLEAR) Urine pH 5 (5-7) Ur Specific [place] 1.020 (1.005-1.030) Urine Protein Neg (Negative) Urine Glucose (UA) Norm (Normal) Urine Ketones Negative (Negative) Urine Nitrate Negative (Negative) Urine Bilirubin Neg (Negative) Ur Leukocyte Esterase Negative (Negative) Urine RBC 0-4 H (0-2) /hpf Urine WBC 0-4 H (0-5) /hpf Cardiac Studies: Echocardiogram 07/05/22
--- NOTE | 2024-01-05 12:22 | W.PM.OPSUD ---
Surgery/Procedure H&P Update DATE OF PROCEDURE: January 05, 2024 DATE H&P PERFORMED: 12/30/23 H&P UPDATE INFORMATION: I have reviewed H&P completed within last 30 days, I have examined patient prior to procedure and No changes to prior documentation PREOP DIAGNOSIS: Nonunion L4-5 PLANNED PROCEDURE: Operation Date: 01/05/24 12:10 Proposed Procedures p Spinal Fusion PSF(Not Applicable) - Otto Cabral DO s Lumbopelvic Fixation(Not Applicable) - DO marlen Young Sacroiliac Joint Fusion SI Joint Fusion(Not Applicable) - Otto Cabral DO
[2024-01-05] MEDS: ceFAZolin 2,000 MG in sodium chloride 0.9% (plus) 50 ML 100 MG IV ×2 (12:29→20:22)
[2024-01-05] MEDS: heparin, porcine 1,000 unit/mL INJ 10 mL 10000 UNIT IRRIGATION (12:50)
[2024-01-05] MEDS: lidocaine-epi 1% 20 mL INJ INJECTION (13:16)
[2024-01-05] MEDS: vancomycin 1,000 MG SDV 1000 MG XX (13:54)
--- NOTE | 2024-01-05 15:47 | XR_ITS ---
WS: [id number] C-ARM RADIOGRAPHS LUMBOSACRAL SPINE.; 2 IMAGES HISTORY: OR PICS COMPARISON: None available. Intraoperative imaging during lumbosacral fusion procedure. XR/XR lumbar spine 2-3V* [id number] IMPRESSION: Intraoperative imaging during lumbosacral fusion procedure.
--- NOTE | 2024-01-05 16:17 | P.OP_ITS ---
Operative Report Date of procedure: January 05, 2024 Pre-op diagnosis: Nonunion of lumbar spine Post-op diagnosis: same Procedure done: 1. T10 to pelvis posterior fusion 2. T10 to S1 instrumentation 3. lumbopelvic instrumentation 4. open SI joint fusion Right 5. open si joint fusion left 6. use of allograft 7. use of autograft 8. use of computer navigation/ stereotactic for spine 9. bone marrow aspirate from Right iliac crest Surgeon: Otto Cabral DO Estimated blood loss (mL): 250 Procedure: 1. T10 to pelvis posterior fusion 2. L3 to S1 instrumentation 3. lumbopelvic instrumentation 4. open SI joint fusion Right 5. open si joint fusion left 6. use of allograft 7. use of autograft 8. use of computer navigation/ stereotactic for spine 9. bone marrow aspirate from Right iliac crest Patient was brought to the op suite after undergoing anesthesia was placed on the operating room table in the prone position. All areas impingement well- padded. Patient was then prepped and draped normal sterile fashion. Skin incision made from T10 down to S1. Subperiosteal dissection was made out to the transverse processes bilaterally from T10 down to L5. The sacral ala was exposed as well. The screws were identified from T9 down to the iliac screws. All of the caps were REMOVED from both sides. Rods were then removed. The T9 screws proximally were removed. Next attention was brought to placing the needle for the the right iliac crest. There is the Jacquelyn cell bone marrow aspirate kit. The needle was inserted and aspirated and then the aspiration kit was inserted and then the bone marrow aspirate was taken in 1 mm increments for 20 cc. This was later used to mix with the bone graft. Next attention was brought to placing the fiducial. 2 pins were placed into the right iliac crest the pins were later be removed at the end of the case. The fiducial was attached. The C-arm was brought in and spun around the patient. The information from the C-arm was then loaded the computer in order to facilitate using the computer navigated screws. Next attention was brought to placing the iliac screws. The previous screws iliac screws were removed. These were 9 5 screws. They replaced with 10.5 screws. This was done by using the gearshift probe linked to the computer navigation placing it through the sacrum through the sacroiliac joint and then into the iliac crest this was done on both the right and left side. Pedicle feeler was used followed by placement of the screw. Screw was linked to the computer navigation. Next tension was brought to doing the open SI joint fusions. This was done first on the right side. The SI joint was identified. The gearshift probe was passed across the SI joint using the computer navigation. And then the wire was passed. Followed by the drill. The canal was then filled with bone graft. And then the sacroiliac fusion screw was passed. This process was done both the right and the left side. To help augment the iliac screws. Next attention was brought to attaching the rods. The rods were attached from T10 down to S1 and then linked into the iliac screws to perform the lumbar pelvic instrumentation. Once all the caps were then locked in position rods were placed bilaterally. Was brought to decorticating the transverse processes and sacral ala and the lamina from L3 down to the sacral ala. The autograft was packed in the lateral gutters along with the allograft which was ostial amp bone graft. This was done bilaterally. The wound was then closed in layered fashion with 0 Vicryl 2-0 Vicryl and Monocryl suture. The drain was placed and patient was transferred to the PACU in stable condition after sterile dressing was applied.
--- NOTE | 2024-01-05 17:19 | PM.CONSULT ---
Providers/Reason For Consult Consulting Physician/Specialty*: Hospitalist Reason for Consult*: Perioperative respiratory distress Attending Physician: Otto Cabral DO Primary Care Provider: Alberto Davenport MD History of Present Illness History of Present Illness Lauren Espnioza is a 63 year old female postop day 0 T10 to pelvis posterior fusion, hospital service was consulted for postoperative management of respiratory distress. Patient is stating that she has history of COPD, she is noncompliant, she was prescribed CPAP which she has not been using, does not use oxygen on daily basis, active smoker. I requested ABG which showed hypercapnic respiratory failure currently she is on BiPAP I will request another ABG at 8 PM. Patient is able to answer all my questions no sign of drowsiness, she is not confused, hemodynamically stable, she is able to provide history as well. ABG was done on 4 L nasal cannula. Requested chest x-ray as well Review of Systems Const: Denies: fever(s) Eyes: Denies: change in vision ENMT: Denies: throat pain Card: Denies: chest pain Resp: Reports: dyspnea GI: Denies: abdominal pain Medications/Allergies Home Medications Medication Instructions Recorded Confirmed Last Taken Type fluticasone propionate 44 2 puff inhalation BID 09/14/19 01/05/24 01/05/24 History mcg/actuation HFA aerosol inhaler (Flovent HFA) gabapentin 600 mg tablet 600 mg PO .Five times daily PRN 10/19/19 01/05/24 01/05/24 History UNKNOWN duloxetine 60 mg capsule,delayed 60 mg PO DAILY #30 caps 10/20/19 01/05/24 01/05/24 Rx release (Cymbalta) lamotrigine 100 mg tablet 100 mg PO DAILY #30 tabs 10/20/19 01/05/24 01/05/24 Rx tizanidine 4 mg tablet See Rx Instructions .Route .COMPLEX 12/27/19 01/05/24 07/08/22 History brexpiprazole 2 mg tablet (Rexulti) 2 mg PO DAILY 07/05/22 01/05/24 01/05/24 History duloxetine 30 mg capsule,delayed 30 mg PO DAILY 07/05/22 01/05/24 01/05/24 History release montelukast 10 mg tablet 10 mg PO DAILY 07/05/22 01/05/2401/04/24 History pantoprazole 40 mg tablet,delayed 40 mg PO BID 07/05/22 01/05/24 01/05/24 History release trazodone 100 mg tablet 150 mg PO .HS 07/05/22 01/05/24 07/07/22 History Bone Growth Stimulator E0748 #1 ea 07/30/22 01/05/24 Unknown Rx TLSO Brace #1 ea 09/24/22 01/05/24 Unknown Rx sulfamethoxazole 800 1 tab PO BID 5 days #10 tabs 12/31/23 01/05/24 01/05/24 Rx mg-trimethoprim 160 mg tablet (Bactrim DS) oxycodone 10 mg tablet 10 mg PO TID PRN pain 7 days #21 01/01/24 01/05/24 01/05/24 Rx tabs Allergies Allergy/AdvReac Type Severity Reaction Status Date / Time No Known Allergies Allergy Verified 12/30/23 09:08 Current Medications Generic Name Dose Route Start Last Admin Trade Name Freq PRN Reason Stop Dose Admin Sodium Chloride 1,000 mls @ 30 mls/hr 01/05/24 09:45 01/05/24 14:30 Sodium Chloride 0.9% IV 01/06/24 09:44 Infused .Q24H RAJESH Infusion PFSH Acute PFSH: Medical History (Updated 01/05/24 @ 18:16 by Bandar Borges MD) Degenerative disc disease Cannabis use disorder, mild, abuse Post-traumatic stress disorder, chronic Major depressive disorder, recurrent severe without psychotic features Generalized anxiety disorder Social History Smoking and tobacco/nicotine status: current every day tobacco/nicotine user cigarettes Packs smoked per day: 1 Years cigarettes smoked: 25 Quit status (tobacco/nicotine): has tried quititng Number of times tried to quit tobacco: 1 Alcohol intake: former Substance/Drug Use: current Substance/Drug use frequency: daily Current gender identity: Female Vitals/I&O/Wt Last Vital Signs Temp 98.2 F 01/05/24 17:10 Pulse 100 01/05/24 17:10 Resp 16 01/05/24 17:10 BP 123/102 01/05/24 17:10 Pulse Ox 96 01/05/24 17:10 O2 Del Method Nasal Cannula 01/05/24 17:10 O2 Flow Rate 4 01/05/24 17:10 FiO2 35 01/05/24 17:00 01/05/24 01/05/24 01/05/24 06:59 14:59 22:59 Intake Total 1050 / 1050 500 / 1550 Output Total 550 / 550 Balance 1050 / 1050 -50 / 1000 Weight last 48 hrs Weight 89.811 kg Physical Exam Narrative: Morbidly obese Nonfocal neuroexam GCS 15 No apparent respiratory distress No active chest pain Currently on BiPAP Appropriate tidal volume Nonfocal neuroexam Abdomen soft S1, S2 tachycardia Urinary Catheter Management: Epstein: Cath Placed During This Visit: yes Urinary Catheter Date of Insertion: 01/05/24 Urinary Catheter Time of Insertion: 12:30 A&P Assessment and plan (1) Fusion of spine: (2) Perioperative complication: (3) Hypercapnic respiratory failure: Plan Perioperative respiratory failure Requiring BiPAP for hypercapnic acute on chronic respite failure Patient does not use his CPAP at home on daily basis, not compliant with oxygen either Active smoker I will keep her on BiPAP all night Repeat ABG at 8 PM Avoid high-dose opioids Clinically no active signs of hypercapnia such as asterixis, confusion, drowsiness or encephalopathy If her ABG shows improvement then there is no need of ICU however in case it is showing worsening then I would recommend transfer to ICU Continue Protonix along oxycodone, continue IV fluids She is tachycardic will request D-dimer complaining of mild pain Full code DVT prophylaxis added Consult Attestations Medical Necessity Statement: As per orthopedics Diagnoses Fusion of spine M43.20 Perioperative complication Hypercapnic respiratory failure J96.92
--- NOTE | 2024-01-05 17:30 | ANE.PACU2 ---
Inpatient post-anesthesia follow up: Airway intact: Yes Vital signs: Temperature 99.4 F Pulse Rate 104 Respiratory Rate 18 Blood Pressure 116/74 Pulse Oximetry 96 Oxygen Delivery Me thod Nasal Cannula Oxygen Flow Rate 1.5 Fraction of Inspir ed Oxygen 35 Hydration adequate: Yes Nausea and vomiting: No Pain level: 1 Mental status: Baseline Additional Comments: Received flumazenil and albuterol, to floor on BIPAP
[2024-01-05 18:01] LABS: ABG PH Result 7.19 (7.35-7.45); Arterial Blood Gas Hematocrit 34.4 % (37-47); Base Excess ABG -6.3 mmol/L (-2.0-2.0); Blood Gas Operator Identificat AMH; Blood Gas Sample Site Brachial, left; Blood Gas Sample Type Arterial; HCO3 ABG 22.3 mmol/L (22-26); Oxygen Device NC; PO2 ABG 81.8 mmHg (80.0-100.0); PO2 FiO2 Ratio Arterial Blood 0
[2024-01-05] MEDS: morphine 4 mg/mL SDV 1 mL 2 MG IVP (18:14)
--- NOTE | 2024-01-05 18:15 | XRR_ITS ---
PROCEDURE INFORMATION: Exam: XR Chest Exam date and time: 01/05/2024 6:48 PM Age: 63 years old Clinical indication: Other: Hypercapnia TECHNIQUE: Imaging protocol: Radiologic exam of the chest. Views: 1 view. COMPARISON: CT lung screening [id number] 02/24/2023 9:19 AM FINDINGS: Lungs: Subtle opacities in the lateral aspect of the left lung base. Pleural spaces: Unremarkable. No pleural effusion. No pneumothorax. Heart/Mediastinum: Unremarkable. No cardiomegaly. Bones/joints: Old healed fracture deformities of the right clavicle. XR/XR chest 1V portable [id number] IMPRESSION: Subtle opacities in the lateral aspect of the left lung base.
[2024-01-05] MEDS: lactated ringers 1,000 ML 90 ML IV (18:16)
[2024-01-05] MEDS: pantoprazole DR 40 mg Tablet PO (18:17)
[2024-01-05] MEDS: sulfamethoxazole-trimeth DS 160-800 mg Tablet 1 TAB PO (18:17)
[2024-01-05] MEDS: docusate sodium 100 mg Capsule PO (18:17)
[2024-01-05] MEDS: trazodone 150 mg Tablet PO (20:22)
[2024-01-05] MEDS: budesonide 0.5 mg/2 mL Neb INHALATION (20:40)
[2024-01-05 20:46] LABS: ABG PCO2 50.1 mmHg (35-45); ABG PH Result 7.25 (7.35-7.45); Base Excess ABG -5.4 mmol/L (-2.0-2.0); Blood Gas Allen Test Pos; Blood Gas Sample Site Radial, left; Blood Gas Sample Type Arterial; HCO3 ABG 21.9 mmol/L (22-26); HGB O2 Sat 91.1 % (95-100); Ionized Calcium Level - ABG 1.1 mmol/L (1.1-1.4); Oxygen Device NC; Oxygen Saturation ABG 93.9; PO2 ABG 72.9 mmHg (80.0-100.0); Potassium Level - ABG 4.4 mmol/L (3.5-5.0); Total Hemoglobin 10.8 g/dL (12-16)
[2024-01-05 21:02] LABS: D Dimer 9.57 ug/mLFEU (0-0.59)
--- NOTE | 2024-01-05 21:16 | PC.NURSE ---
Pt fell asleep wearing 2L O2 with nasal cannula, dropped down to 81% SPO2 with snoring respirations. BIPAP mask applied and restarted, RT Lnida in room with patient. SPO2 improved to 94% on BIPAP.
[2024-01-06] VITALS (9 sets, daily range): BP systolic 90–133; BP diastolic 49–84; PULSE 89–106; RESP 16–20; TEMP 36.7–37.5; O2SAT 92–99
[2024-01-06] MEDS: oxyCODONE-APAP 10-325 mg Tablet PO ×2 (02:28→07:59)
[2024-01-06 03:39] LABS: ABG PCO2 46.6 mmHg (35-45); ABG PH Result 7.32 (7.35-7.45); Arterial Blood Gas Hematocrit 29.1 % (37-47); Base Excess ABG -2.4 mmol/L (-2.0-2.0); Blood Gas Sample Site Brachial, right; Blood Gas Sample Type Arterial; HCO3 ABG 23.8 mmol/L (22-26); Oxygen Device NC; PO2 ABG 65.9 mmHg (80.0-100.0)
[2024-01-06] MEDS: ceFAZolin 2,000 MG in sodium chloride 0.9% (plus) 50 ML 100 MG IV (04:27)
[2024-01-06] MEDS: lactated ringers 1,000 ML 90 ML IV (04:27)
[2024-01-06 06:10] LABS: Basophils % 0.2 %; Eosinophils % 0.1 %; Hematocrit 28.6 % (36-47); Lymphocytes # 1.7 10^3/uL (0.8-4.8); Lymphocytes % 19.9 %; Mean Corpuscular HGB Conc 31.8 g/dL (30-55); Mean Corpuscular Volume 94.4 fl (85-98); Mean Platelet Volume 9.1 fL (7.4-10.4); Monocytes # 0.7 10^3/uL (0.2-0.9); Monocytes % 8.1 %; Neutrophils # 6.11 10^3/uL (1.8-7.7); Neutrophils % 71.5 %; Nucleated Red Blood Cells % 0 %; Platelet Count 185 10^3/cmm (157-399); Red Blood Count 3.03 10^6/uL (3.85-5.65); Red Cell Distribution Width 13.8 % (12.1-15.1); White Blood Count 8.55 10^3/uL (3.29-11.43)
[2024-01-06 06:34] LABS: Blood Urea Nitrogen 12 mg/dL (8-23); Calcium 7.7 mg/dL (8.5-10.5); Carbon Dioxide 23 mmol/L (22-29); Chloride 104 mmol/L (98-107); Glomerular Filtration Rate 72.7 mL/min (90-130); Glucose 129 mg/dL (65-115); Osmolality Calculated 289 mOsm/kg (285-295); Sodium 139 mmol/L (136-145)
[2024-01-06] MEDS: budesonide 0.5 mg/2 mL Neb INHALATION (07:41)
--- NOTE | 2024-01-06 07:45 | P.PN_ITS ---
Subjective 2 Subjective: Patient is having for mild pain. Has not been out of bed yet. Vitals/I&O/Wt Last Vital Signs Temp 99.4 F 01/06/24 03:49 Pulse 104 H 01/06/24 07:42 Resp 16 01/06/24 07:42 BP 116/74 01/06/24 07:06 Pulse Ox 96 01/06/24 07:42 O2 Del Method Nasal Cannula 01/06/24 07:42 O2 Flow Rate 1.5 01/06/24 07:42 FiO2 35 01/06/24 04:09 01/05/24 01/06/24 01/06/24 22:59 06:59 14:59 Intake Total 1030 / 2080 966.5 / 3046.5 Output Total 850 / 850 525 / 1375 Balance 180 / 1230 441.5 / 1671.5 Weight last 48 hrs Weight 206 lb 9.6 oz Weight 198 lb Weight 198 lb Physical Exam 2 Narrative: Patient sitting up in bed at this point now drain is partially disconnected I reattached it. Will see if we can get suction to work again. Urinary Catheter Management: Epstein: Cath Placed During This Visit: yes Reason for Continuing Indwelling Catheter: Perioperative Use in Selected Surgeries Urinary Catheter Date of Insertion: 01/05/24 Urinary Catheter Time of Insertion: 12:30 Data 01/06/24 06:01 01/06/24 06:01 A&P Assessment and plan (1) Fusion of spine: Patient postop day #1 revision thoracolumbar spine. This point patient is having some pain issues will plan to keep her overnight work with therapy today. Qualifiers: Spinal region: lumbar Qualified Code(s): M43.26 - Fusion of spine, lumbar region Attestations 2 Medical Necessity Statement*: Pain control Coding Level of Care Code Acute Code for Chg Fwd Diagnoses Fusion of lumbar spine M43.26 Spinal region: lumbar
--- NOTE | 2024-01-06 08:25 | USCV_ITS ---
Rodríguezesa Age: 63 Gender: F : 1960 Exam Date: 01/06/2024 09:29 Ordering Phys: Bandar Borges MD Technologist: CT Exam Location: [facility] [place]_ Indication: PROCEDURES: The venous duplex Doppler examination of both lower extremities was performed in the standard fashion. Bilaterally, the common femoral, superficial femoral, profunda femoral, popliteal, posterior tibial, greater saphenous veins, and the peroneal trunk were identified and interrogated in the standard fashion. FINDINGS: Normal 2-D Doppler and augmentation and compressibility throughout the lower extremity venous structures. Additional imaging through the proximal calf veins also reveals no thrombus. Limited evaluation of the greater saphenous vein is patent with no thrombus. CONCLUSIONS No DVT bilateral lower extremities. Dr. Carolyn Morgan DO (Electronically Signed) Final Date: 06 January 2024 10:27 S
[2024-01-06] MEDS: sulfamethoxazole-trimeth DS 160-800 mg Tablet 1 TAB PO (08:31)
[2024-01-06] MEDS: duloxetine 30 mg Capsule PO (08:31)
[2024-01-06] MEDS: lamoTRIgine 100 mg Tablet PO (08:31)
[2024-01-06] MEDS: duloxetine 60 mg Capsule PO (08:31)
[2024-01-06] MEDS: docusate sodium 100 mg Capsule PO (08:32)
[2024-01-06] MEDS: pantoprazole DR 40 mg Tablet PO (08:32)
[2024-01-06] MEDS: montelukast sodium 10 mg Tablet PO (08:32)
--- NOTE | 2024-01-06 09:54 | PC.CHAP ---
Pastoral Care Encounter/Spiritual Assessment Type of Contact [] Declined manufacturing group leader visit [] Patient/Family/Request visit [] Outpatient visit [] Follow-up visit [] Physician referral [] Code/Alert [] Routine visit [] Staff referral [] Actively dying [] Patient sleeping [] Family support [] [] Out of room [] Palliative care [] [] Receiving care in room [] Pre-surgical visit [] Trauma [] Long length of stay [] ICU visit [x] Other:Room locked Relational/Emotional Strength [] Patient feels connected with others/family/visitors/staff [] Distress [] Loneliness/isolation [] Abandonment Spirituality of Patient [] Person of Vicki [] Attends Presy[employer]ian of their Vicki [] Believes in Prayer [] Reads Bible or Moravian materials [] There are Spiritual issues to be addressed Manager Statistical Interventions [] Prayer [] Active listening [] Non-anxious presence [] Spiritual/emotional support [] Crisis/trauma care [] Spiritual counseling [] Bereavement support [] Provided bereavement packet [] Provided Bible/devotional materials [] Provided toy/stuffed animal, coloring book to patient or family member [] Provided Communion [] Anointing/[place] [] Salvation [] Completed spiritual assessment [] Other: Impact on Illness or Injury [] Angry [] Fearful [] Anxious [] Often cries [] Exhaustion [] Unable to work [] Unable to attend presybeterian [] Unable to walk/stand [] Unable to read [] Unable to drive [] Unable to eat/drink [] Unable to sleep [] Unable to be with family [] Patient intubated [] Other: Summary Time spent with patient
--- NOTE | 2024-01-06 12:50 | P.PN_ITS ---
Subjective 2 Subjective: This morning patient is doing well Requested CTA chest and venous Doppler to rule out thromboembolic disease Currently she is on room air saturating well No signs of hypercapnic somnolence or asterixis Since orthopedic is watching her 1 more day I would like to get overnight pulse ox study to see if she would qualify for BiPAP at the time of discharge Vitals/I&O/Wt Last Vital Signs Temp 98.0 F 01/06/24 11:07 Pulse 93 01/06/24 11:07 Resp 17 01/06/24 11:07 BP 95/64 01/06/24 11:07 Pulse Ox 95 01/06/24 11:07 O2 Del Method Room Air 01/06/24 11:07 O2 Flow Rate 1.5 01/06/24 07:42 FiO2 35 01/06/24 04:09 01/05/24 01/06/24 01/06/24 22:59 06:59 14:59 Intake Total 1030 / 2080 966.5 / 3046.5 240 / 240 Output Total 850 / 850 525 / 1375 200 / 200 Balance 180 / 1230 441.5 / 1671.5 40 / 40 Weight last 48 hrs Weight 93.712 kg Weight 89.811 kg Weight 89.811 kg Physical Exam 2 Narrative: Morbid obese Currently not in any active distress Hemodynamically stable Currently on room air Pleasant cooperative No sign of confusion or somnolence No active Rester distress No active chest pain Sinus tachycardia noted Urinary Catheter Management: Epstein: Cath Placed During This Visit: yes, but has since been removed by the nurse Reason for Continuing Indwelling Catheter: Perioperative Use in Selected Surgeries Urinary Catheter Date of Insertion: 01/05/24 Urinary Catheter Time of Insertion: 12:30 Date Urinary Catheter Removed: 01/06/24 Time Urinary Catheter Discontinued: 08:00 Data 01/06/24 06:01 01/06/24 06:01 A&P Assessment and plan (1) Perioperative complication: (2) Fusion of spine: Qualifiers: Spinal region: lumbar Qualified Code(s): M43.26 - Fusion of spine, lumbar region (3) Hypercapnic respiratory failure: (4) Postoperative acute respiratory failure: Plan Perioperative respiratory failure with hypercapnia Underlying COPD Patient is an active smoker Noncompliant with her CPAP Will request overnight pulse ox study to see if she would qualify for BiPAP She had significant hypercapnic respiratory failure required BiPAP Judicious use of opioids Monitor bowel movement on opioids Currently full code Plan to discharge her by tomorrow Hemodynamically stable CT chest along venous Doppler to rule out thromboembolic disease considering high D-dimer DVT prophylaxis on board Attestations 2 Medical Necessity Statement*: Continue medical management Diagnoses Perioperative complication Fusion of lumbar spine M43.26 Spinal region: lumbar Hypercapnic respiratory failure J96.92 Postoperative acute respiratory failure J95.821
--- NOTE | 2024-01-06 13:04 | P.DS_ITS ---
Discharge Providers Date of Admission: 01/05/24 17:17 Date of Discharge: January 06, 2024 Attending Provider at Admission: Otto Cabral DO Attending Provider at Discharge: Otto Cabral DO Primary Care Provider: Alberto Davenport MD Diagnoses at Discharge Discharge Diagnosis (1) Perioperative complication: Status: Acute (2) Fusion of spine: Status: Acute Qualifiers: Spinal region: lumbar Qualified Code(s): M43.26 - Fusion of spine, lumbar region (3) Hypercapnic respiratory failure: Status: Acute (4) Postoperative acute respiratory failure: Status: Acute Reason for Visit Reason for Visit: M48.062 Physical Exam Urinary Catheter Management: Epstein: Cath Placed During This Visit: yes, but has since been removed by the nurse Reason for Continuing Indwelling Catheter: Perioperative Use in Selected Surgeries Urinary Catheter Date of Insertion: 01/05/24 Urinary Catheter Time of Insertion: 12:30 Date Urinary Catheter Removed: 01/06/24 Time Urinary Catheter Discontinued: 08:00 Discharge Data Studies Completed and Pending Completed Studies During Hospitalization Category Date Time Status XR chest 1V portable [id number] Routine Exams 01/05/24 18:15 Completed XR lumbar spine 2-3V* [id number] Routine Exams 01/05/24 15:47 [place] [id number] Routine Ultrasound 01/06/24 08:25 Completed Pending at discharge Category Date Time Status CTA PE [CT angio chest PE protcl [id number]] Routine Cat Scan 01/06/24 08:25 Ordered Complete Blood Count w/Auto AM LABS Lab 01/07/24 04:00 Ordered Radiology Impressions Lumbar Spine X-Ray 01/05/24 15:47 IMPRESSION: Intraoperative imaging during lumbosacral fusion procedure. Chest X-Ray 01/05/24 18:15 IMPRESSION: Subtle opacities in the lateral aspect of the left lung base. Laboratory Results WBC 8.55 10^3/uL (3.29-11.43) 01/06/24 06:01 RBC 3.03 10^6/uL (3.85-5.65) L 01/06/24 06:01 Hgb 9.10 g/dL (11.27-16.99) L 01/06/24 06:01 Hct 28.6 % (36-47) L 01/06/24 06:01 MCV 94.4 fl (85-98) 01/06/24 06:01 MCH 30.0 pg (27-33) 01/06/24 06:01 MCHC 31.8 g/dL (30-55) 01/06/24 06:01 RDW 13.8 % (12.1-15.1) 01/06/24 06:01 Plt Count 185 10^3/cmm (157-399) 01/06/24 06:01 MPV 9.1 fL (7.4-10.4) 01/06/24 06:01 Neut % (Auto) 71.5 % 01/06/24 06:01 Lymph % (Auto) 19.9 % 01/06/24 06:01 Sanders % (Auto) 8.1 % 01/06/24 06:01 Eos % (Auto) 0.1 % 01/06/24 06:01 Baso % (Auto) 0.2 % 01/06/24 06:01 Neut # (Auto) 6.11 10^3/uL (1.8-7.7) 01/06/24 06:01 Lymph # (Auto) 1.7 10^3/uL (0.8-4.8) 01/06/24 06:01 Sanders # (Auto) 0.7 10^3/uL (0.2-0.9) 01/06/24 06:01 Eos # (Auto) 0.0 10^3/uL (0.0-0.8) 01/06/24 06:01 Baso # (Auto) 0.0 10^3/uL (0.0-0.1) 01/06/24 06:01 Nucleated RBC % (auto) 0 % 01/06/24 06:01 Nucleated RBCs # 0.0 /100WBC 01/06/24 06:01 D-Dimer 9.57 ug/mLFEU (0-0.59) H 01/05/24 19:40 Specimen Type Arterial 01/06/24 03:28 Sample Site Brachial, right 01/06/24 03:28 ABG pH 7.32 (7.35-7.45) L 01/06/24 03:28 ABG pCO2 46.6 mmHg (35-45) H 01/06/24 03:28 ABG pO2 65.9 mmHg (80.0-100.0) L 01/06/24 03:28 ABG PO2/FiO2 Ratio 0 01/05/24 17:50 ABG HCO3 23.8 mmol/L (22-26) 01/06/24 03:28 ABG O2 Saturation 93.9 01/05/24 20:35 ABG Base Excess -2.4 mmol/L (-2.0-2.0) L 01/06/24 03:28 Justo Test N/a 01/06/24 03:28 A-a O2 Gradient 2.0 mmHg (5-10) L 01/05/24 20:35 Hematocrit 29.1 % (37-47) L 01/06/24 03:28 Hgb O2 Saturation 91.1 % (95-100) L 01/05/24 20:35 Carboxyhemoglobin 2.0 %THgb (0.4-20.1) 01/05/24 20:35 Methemoglobin 1.0 % (0.4-1.5) 01/05/24 20:35 Total Hemoglobin 10.8 g/dL (12-16) L 01/05/24 20:35 Sodium 143.0 mmol/L (131-143) 01/05/24 20:35 Potassium 4.4 mmol/L (3.5-5.0) 01/05/24 20:35 Glucose 182.0 mg/dL (70-115) H 01/05/24 20:35 Ionized Calcium 1.1 mmol/L (1.1-1.4) 01/05/24 20:35 O2 Delivery Device Nc 01/06/24 03:28 O2 Liters/Min 2.0 % 01/06/24 03:28 FiO2 36.0 % 01/05/24 17:50 Density Control Puncher ID [email or web address] 01/06/24 03:28 Sodium 139 mmol/L (136-145) 01/06/24 06:01 Potassium 4.0 mmol/L (3.5-5.1) 01/06/24 06:01 Chloride 104 mmol/L (98-107) 01/06/24 06:01 Carbon Dioxide 23 mmol/L (22-29) 01/06/24 06:01 Anion Gap 16.0 (5-19) 01/06/24 06:01 BUN 12 mg/dL (8-23) 01/06/24 06:01 Creatinine 0.8 mg/dL (0.5-0.9) 01/06/24 06:01 GFR Calculation 72.7 mL/min (90-130) L 01/06/24 06:01 Glucose 129 mg/dL (65-115) H 01/06/24 06:01 Calculated Osmolality 289 mOsm/kg (285-295) 01/06/24 06:01 Calcium 7.7 mg/dL (8.5-10.5) L 01/06/24 06:01 Urine Color Yellow (Yellow) 01/05/24 09:47 Urine Appearance Clear (CLEAR) 01/05/24 09:47 Urine pH 5 (5-7) 01/05/24 09:47 Ur Specific [place] 1.020 (1.005-1.030) 01/05/24 09:47 Urine Protein Neg (Negative) 01/05/24 09:47 Urine Glucose (UA) Norm (Normal) 01/05/24 09:47 Urine Ketones Negative (Negative) 01/05/24 09:47 Urine Blood 2+ (Negative) H 01/05/24 09:47 Urine Nitrate Negative (Negative) 01/05/24 09:47 Urine Bilirubin Neg (Negative) 01/05/24 09:47 Urine Urobilinogen Neg mg/dL (Negative) 01/05/24 09:47 Ur Leukocyte Esterase Negative (Negative) 01/05/24 09:47 Urine RBC 0-4 /hpf (0-2) H 01/05/24 09:47 Urine WBC 0-4 /hpf (0-5) H 01/05/24 09:47 Ur Squamous Epith Cells 5-10 /hpf (0-5) H 01/05/24 09:47 Amorphous Sediment Not Reportable 01/05/24 09:47 Urine Bacteria Trace /hpf (NONE) 01/05/24 09:47 Blood Type O Positive 01/05/24 10:20 Rho(D) Type Rh positive 01/05/24 10:20 Antibody Screen Negative 01/05/24 10:20 Vitals Last Vital Signs Temp 98.0 F 01/06/24 11:07 Pulse 93 01/06/24 11:07 Resp 17 01/06/24 11:07 BP 95/64 01/06/24 11:07 Pulse Ox 95 01/06/24 11:07 O2 Del Method Room Air 01/06/24 11:07 O2 Flow Rate 1.5 01/06/24 07:42 FiO2 35 01/06/24 04:09 Discharge Plan Discharge Prescriptions: New oxycodone 10 mg tablet 10 mg PO Q4H PRN (Reason: pain) 7 Days Qty: 40 0RF Continued Flovent HFA 44 mcg/actuation HFA aerosol inhaler 2 puff INHALATION BID gabapentin 600 mg tablet 600 mg PO .Five times daily PRN (Reason: UNKNOWN) duloxetine [Cymbalta] 60 mg capsule,delayed release(DR/EC) 60 mg PO DAILY Qty: 30 2RF lamotrigine 100 mg tablet 100 mg PO DAILY Qty: 30 2RF (DME) Bone Growth Stimulator E0748 See Rx Instructions .Route .MEDSUPPLY Qty: 1 0RF Rx Instructions: As directed (DME) TLSO Brace See Rx Instructions .Route .MEDSUPPLY Qty: 1 0RF Rx Instructions: As directed sulfamethoxazole-trimethoprim [Bactrim DS] 800-160 mg tablet 1 tab PO BID 5 Days Qty: 10 0RF tizanidine 4 mg tablet See Rx Instructions .ROUTE .COMPLEX Rx Instructions: 4 mg orally TAKE 1 AND 1/2 TAB TID PRN FOR MUSCLE SPASMS. pantoprazole 40 mg tablet,delayed release (DR/EC) 40 mg PO BID montelukast 10 mg tablet 10 mg PO DAILY duloxetine 30 mg capsule,delayed release(DR/EC) 30 mg PO DAILY Rexulti 2 mg tablet 2 mg PO DAILY trazodone 100 mg tablet 150 mg PO .HS Discontinued oxycodone 10 mg tablet 10 mg PO TID PRN (Reason: pain) 7 Days Qty: 21 0RF Rx Instructions: Take one tablet 3 times a day as needed for pain Discharge Orders: Discharge Order (Routine); Ordered 01/06/24 Ordered By: Otto Cabral Referrals: Otto Cabral DO [Physician] - 01/20/24 11:00 am Alberto Davenport MD [Primary Care Provider] - 01/14/24 2:45 pm Discharge Diet: Advance as tolerated Discharge Activity: Limit activity as instructed Patient Instructions: Opioid Safety Activity Restrictions/Additional Instructions: Thank you for [facility] for your care! The following is a list of instructions, from your provider, to follow upon your discharge to ensure you have the optimal recovery from your recent injury orsurgery. Follow-up care is a davis part of your treatment and safety. Be sure to make and go to all appointments, and call your doctor if you are having problems. If you do not already have a follow-up appointment made, call Dr. Cabral office in the next 1-3 days to make follow up appointment for 1 weeks at [phone]. It is also a good idea to know your test results and keep a list of the medicines you take. Medications will be prescribed for you at your provider's discretion. These medications are to be used as instructed; if they are taken more often that prescribed they will not be refilled early and in most cases will not be refilled at all. > When a refill is needed,you should contact krista ruelas 2-3 business days before your prescription runs out. Medications will NOT be refilled by electronic coils supervisor providers after hours! > Many pain medications contain Tylenol (Acetaminophen). Do not consume more than 4,000 mg of Tylenol per day in total with any combination ofmedications. > Pain medications can cause constipation. Please use an over the counter stool softener as directed, while taking pain medications. Consulty our local pharmacist with questions or recommendations on stool softeners. If constipation persists, contact our office or your primary care provider. > While under our care,you are not to receive pain medications or other controlled substances from any other provider unless our office is notified and approves. Any attempts to do so will result in refusal to prescribe any further pain medications and possible dismissal from our practice. ? Your wound and/or dressing should remain clean and dry for 2 days after surgery. On postoperative day 2 (48 hours after your surgery) the dressing (if present) should be removed and it is okay to shower and get the incision wet. Pad dry afterwards. No further dressing should be required from that point on. Do not put any creams or ointments on theincision > It is normal for there to be a small amount of discharge (bloody or blood tinged) present from a surgical wound for the first 1-3days. > The wound should be examined twice a day for signs of infection. Mild redness or bruising is to be expected but indications that an infection maybe starting would include; An increase in redness, swelling, or discharge, a foul odor present around the incision, and/or a fever greater than 101 ?F ? Showering is permitted, however we ask that you do not take a bath, sit in a whirlpool / Jacuzzi, or go swimming for 1 month. For only the first 2 days after surgery, lt wilt be necessary for you to cover your wound/dressing with plastic and tape to keep it dry. ? Walking is essential for the healing process after surgery. We would like you to slowly advance your walking. This should be done on relatively flat clear ground (inside or out) or can be done on a treadmill. Remember this goal does not have to happen all at once, slowly increase your distance and duration. This can be broken into more more than one walk per day as tolerated. Patients who walk as directed after surgery rarely require Physical Therapy. In the unlikely event this issue arises your provider will direct hospital staff to make the appropriate arrangements. ? No lifting over 5 pounds {a gallon of milk) or bending/twisting until further notice. Each of these activities places an unnecessary amount of stress onto the body and can impede the delicate healing process. > Instead of bending at the waist, keep your back straight and bend at the knees. > Instead of twisting your torso, keep your back straight and turn your entire body with your feet. ? You may sleep in any position which makes you comfortable. Many patients find comfort sleeping in a reclining chair. It is not abnormal to have difficulty sleeping for the first several weeks following your surgery. We recommend trying Benadry! or Tylenol PM as directed to help with your sleeping difficulties. Both medications are over the counter and available withoutprescription. ? NO SMOKING!!! Smoking dramatically increases the probability of developing postoperative wound infections. ? Common complaints after lumbar and/or thoracic spine surgery include, but are not limited to: numbness and/or tingling in the legs, pain around the incision and surrounding tissues, muscle spasms, or stiffness of the middle to low back. Contact our office if these symptoms persist or if an acute change occurs. ? No driving for the first 3-5days, and not while taking narcotics [] until seen at your follow-up appointment and cleared. There are no restrictions for riding on short trips, however if you take a longer trip, arrangements should be made to make regular stops to get out of the vehicle and stretch . ? Swelling is an unfortunate event that will take place with any surgery and is the primary source of your postoperative discomfort. While walking and regular approved activities helps control inflammation, there are additional steps you can take to minimizeswelling. > Place ice over the surgical site and surrounding tissue for twenty minutes, followed by applying a low/medium heat (heating pad) for an additional twenty minutes every 1-2 hours as needed for painrelief. > You may use of over the counter anti-inflammatory medications (Ibuprofen, Motrin, Aleve, Advil, etc) as directed on the package label. These types of medicines wm significantly reduce the amount of discomfort you experience after surgery from swelling. It should be noted that if you have and allergy to any of these medications, or a history of ulcers or kidney disease you should consult you primary care provider prior to starting these medications. Discharge Attestations Time Spent in Discharge Care*: less than 30 min Quality Metrics Clinical Quality Measures [ No reported AMI, CVA or VTE this stay] Coding Level of Care Code Acute Code for Chg Fwd Diagnoses Perioperative complication Fusion of lumbar spine M43.26 Spinal region: lumbar Hypercapnic respiratory failure J96.92 Postoperative acute respiratory failure J95.821
== END 2024-01-06 13:15 | disposition home or self-care (01) | DRG 456 ==
LOC: MEDSURG 17:20
PROVIDERS: Internal Medicine; Admitting Provider Orthopaedic Surgery; PCP Family Medicine; Visit Provider Orthopaedic Surgery
PROC: 0RG7071 Fusion of 2 to 7 Thoracic Vertebral Joints with Autologous Tissue Substitute, Posterior Approach, Posterior Column, Open Approach (ICD-10-PCS; principal; 2024-01-05 11:50)
PROC: 0RG7071 Fusion of 2 to 7 Thoracic Vertebral Joints with Autologous Tissue Substitute, Posterior Approach, Posterior Column, Open Approach (ICD-10-PCS; 2024-01-05 11:50)
PROC: 0RG7071 Fusion of 2 to 7 Thoracic Vertebral Joints with Autologous Tissue Substitute, Posterior Approach, Posterior Column, Open Approach (ICD-10-PCS; CPT 27280; 2024-01-05 11:50)
DX: M96.0 Pseudarthrosis after fusion or arthrodesis (principal); J95.822 Acute and chronic postprocedural respiratory failure; Z68.41 Body mass index [BMI] 40.0-44.9, adult; F12.10 Cannabis abuse, uncomplicated; F43.12 Post-traumatic stress disorder, chronic; F32.9 Major depressive disorder, single episode, unspecified; F41.1 Generalized anxiety disorder; F17.210 Nicotine dependence, cigarettes, uncomplicated; J44.9 Chronic obstructive pulmonary disease, unspecified; Z91.199 Patient's noncompliance with other medical treatment and regimen due to unspecified reason; E66.01 Morbid (severe) obesity due to excess calories
CPT/HCPCS: 36415; 36600; 51702; 71045; 72100; 76000; 80048; 80051; 81001; 82330; 82803; 82805; 85025; 85378; 86850; 86900; 93970; 94640; 94660; 97116; 97161; C1713; J0330; J0690; J1100; J1170; J1644; J2250; J2270; J2405; J2704; J3010; J3370; J3490; J7030; J7120; J7626; P9045

== ENCOUNTER → 2024-01-20 10:35 | Outpatient (BNVA) | payer MEDICARE, MEDICAID, SELFPAY | PROVIDERS: PCP Family Medicine; Visit Provider Orthopaedic Surgery | DX: M43.26 Fusion of spine, lumbar region (principal) | CPT/HCPCS: 99024 ==

== ENCOUNTER → 2024-06-29 14:00 | Outpatient (BNVA) | payer MEDICARE, MEDICAID, SELFPAY | PROVIDERS: PCP Family Medicine; Visit Provider Orthopaedic Surgery | DX: M43.26 Fusion of spine, lumbar region (principal); Z98.1 Arthrodesis status | CPT/HCPCS: 72100; 99214 ==

== ENCOUNTER 2024-07-12 13:30 | Outpatient (CLI) | payer MEDICARE, MEDICAID, SELFPAY ==
--- NOTE | 2024-07-12 14:00 | CTR_ITS ---
PROCEDURE INFORMATION: Exam: CT Pelvis With Contrast, Skeleton Exam date and time: 07/12/2024 2:16 PM Age: 64 years old Clinical indication: Pelvic pain; Prior surgery; Surgery date: 1-6 months; Surgery type: Back; Additional info: Back pain TECHNIQUE: Imaging protocol: Computed tomography of the pelvis with contrast. Exam focused on the skeleton. Radiation optimization: All CT scans at this facility use at least one of these dose optimization techniques: automated exposure control; mA and/or kV adjustment per patient size (includes targeted exams where dose is matched to clinical indication); or iterative reconstruction. Contrast material: OMNI 350; Contrast volume: 100 ml; Contrast route: INTRAVENOUS (IV); COMPARISON: CT lumbar spine w con [id number] 11/20/2023 12:28 PM RADIATION DOSE METRICS: Total DLP (mGy-cm): 455.92 FINDINGS: Reproductive: Hysterectomy. Bones/joints: Mild degenerative changes of each hip. Extensive posterior fusion of the lower lumbar spine including each SI joint. Minimal lucency surrounds the sacroiliac screws and mild loosening may be present. No lytic or sclerotic bone lesions seen. Lower lumbar laminectomy. In the interval since the prior study a 2nd fusion device across each SI joint has been installed. Soft tissues: Unremarkable. CT/CT pelvis w con* [id number] IMPRESSION: 1. No acute findings. 2. Lucency surrounding each screw which traverses the SI joint. The appearance is similar to what was seen previously.
[2024-07-12 14:17] LABS: Blood Urea Nitrogen 9 mg/dL (8-23); Glomerular Filtration Rate 84.5 mL/min (90-130)
[2024-07-12] MEDS: iohexol 350 mg/mL 500 mL Btl (per mL) IV (14:24)
== END 2024-07-12 13:31 | disposition home or self-care (01) ==
LOC: RAD 13:31
PROVIDERS: PCP Family Medicine; Visit Provider Orthopaedic Surgery
DX: M54.9 Dorsalgia, unspecified (principal); M43.26 Fusion of spine, lumbar region; Z90.710 Acquired absence of both cervix and uterus
CPT/HCPCS: 72193; 82565; 84520

== ENCOUNTER → 2024-08-10 08:45 | Outpatient (BNVA) | payer MEDICARE, MEDICAID, SELFPAY | PROVIDERS: PCP Family Medicine; Visit Provider Orthopaedic Surgery | DX: M54.9 Dorsalgia, unspecified (principal); Z09 Encounter for follow-up examination after completed treatment for conditions other than malignant neoplasm | CPT/HCPCS: 36415; 80053; 81001; 85025; 99214 ==

== ENCOUNTER 2024-08-23 05:43 | Day surgery (SDC) | payer MEDICARE, MEDICAID, SELFPAY ==
[2024-08-23] VITALS (9 sets, daily range): BP systolic 110–142; BP diastolic 51–74; PULSE 76–83; RESP 16–19; TEMP 36.1–36.2; O2SAT 91–96; BMI 36.3
--- NOTE | 2024-08-23 06:33 | W.PM.OPSUD ---
Surgery/Procedure H&P Update DATE OF PROCEDURE: August 23, 2024 DATE H&P PERFORMED: 08/10/24 H&P UPDATE INFORMATION: I have reviewed H&P completed within last 30 days, I have examined patient prior to procedure and No changes to prior documentation PREOP DIAGNOSIS: Painful hardware in the pelvis PLANNED PROCEDURE: Operation Date: 08/23/24 07:00 Proposed Procedures p Hardware Removal Iliac Screw(Not Applicable) - Otto Cabral DO
--- NOTE | 2024-08-23 06:58 | P.ANESASSM_ITS ---
Pre-Anesthetic Assessment Height/Weight: Height 1.52 m Weight 84.368 kg Temp Pulse Resp BP Pulse Ox O2 Del Method 97.1 F L 77 18 121/71 95 Room Air 08/23/24 06:02 08/23/24 06:02 08/23/24 06:02 08/23/24 06:02 08/23/24 06:02 08/23/24 06:02 Preop Diagnosis: Painful hardware in the pelvis Operation Date: 08/23/24 07:00 Proposed Procedures p Hardware Removal Iliac Screw(Not Applicable) - DO Michael Young anesthetic complications: Post-op resp failure Was Beta Patricia taken within 24 hours: N/A Was Clonidine taken within 24 hours: N/A Last intake: Intake Last Liquid Date 08/22/24 Last Liquid Time 20:00 Last Solid Date 08/22/24 Last Solid Time 20:00 Social Tobacco and No alcohol Exam alert, oriented x 3, clear to auscultation bilaterally and regular rate & rhythm Airway Dentition: false CV/HEM Mod AVR -denies CP, SOB, SHELTON, Syncope GI Gastroesophageal Reflux Disease Anesthetic Plan ASA status: 3 Anesthesia: General Risk of > 500 ml blood loss (7ml/kg in children): No Medications/Allergies Home Medications Medication Instructions Recorded Confirmed Last Taken Type fluticasone propionate 44 2 puff inhalation BID 09/14/19 08/20/24 08/22/24 History mcg/actuation HFA aerosol inhaler (Flovent HFA) gabapentin 600 mg tablet 600 mg PO BID PRN UNKNOWN 10/19/19 08/20/24 08/22/24 History duloxetine 60 mg capsule,delayed 60 mg PO DAILY #30 caps 10/20/19 08/20/24 08/22/24 Rx release (Cymbalta) lamotrigine 100 mg tablet 100 mg PO DAILY #30 tabs 10/20/19 08/20/24 08/22/24 Rx brexpiprazole 2 mg tablet (Rexulti) 2 mg PO DAILY 07/05/22 08/20/24 08/20/24 History duloxetine 30 mg capsule,delayed 30 mg PO DAILY 07/05/22 08/20/24 08/22/24 Histo ry release montelukast 10 mg tablet 10 mg PO DAILY 07/05/22 08/20/24 08/22/24 History pantoprazole 40 mg tablet,delayed 40 mg PO BID 07/05/22 08/20/24 08/22/24 History release trazodone 100 mg tablet 150 mg PO .HS 07/05/22 08/20/24 08/20/24 History Bone Growth Stimulator E0748 #1 ea 07/30/22 08/10/24 Unknown Rx TLSO Brace #1 ea 09/24/22 08/10/24 Unknown Rx hydrocodone 7.5 mg-acetaminophen 1 tab PO Q8H PRN pain 30 days #90 01/20/24 08/20/24 08/22/24 Rx 325 mg tablet tabs cyclobenzaprine 10 mg tablet 10 mg PO TID 08/20/24 08/20/24 08/22/24 History Allergies Allergy/AdvReac Type Severity Reaction Status Date / Time No Known Allergies Allergy Verified 08/23/24 05:59 PFSH Anesthesia Medical History Degenerative disc disease Cannabis use disorder, mild, abuse Post-traumatic stress disorder, chronic Major depressive disorder, recurrent severe without psychotic features Generalized anxiety disorder Social History Smoking and tobacco/nicotine status: current every day tobacco/nicotine user cigarettes Packs smoked per day: 1 Years cigarettes smoked: 25 Quit status (tobacco/nicotine): has tried quititng Number of times tried to quit tobacco: 1 Alcohol intake: former Substance/Drug Use: current Substance/Drug use frequency: daily Current gender identity: Female Data Anesthesia Cardiac Studies: Echocardiogram 07/05/22
[2024-08-23] MEDS: ceFAZolin 2,000 mg SDV 2000 MG IVP (07:14)
[2024-08-23] MEDS: ceFAZolin 1,000 mg SDV 2000 MG (07:15)
[2024-08-23] MEDS: sodium chloride 0.9% 1,000 ML 30 ML IV (07:17)
[2024-08-23] MEDS: lidocaine-epi 1% 20 mL INJ INJECTION (07:42)
[2024-08-23] MEDS: VANCOMYCIN ADD-Vantage 1,000 MG VIAL 1000 MG INTRA-ARTI (07:43)
--- NOTE | 2024-08-23 08:20 | XR_ITS ---
WS: [id number] C-ARM RADIOGRAPHS LUMBAR SPINE; 3 IMAGES HISTORY: OR PICS COMPARISON: None available. Intraoperative imaging during lumbosacral revision. Long screws extending across the SI joints and th e distal lumbosacral hardware have been removed. XR/XR lumbar spine 2-3V* 41013 IMPRESSION: Intraoperative imaging during lumbosacral revision.
--- NOTE | 2024-08-23 08:27 | PM.OP ---
Operative Report Date of procedure: August 23, 2024 Pre-op diagnosis: Painful orthopedic hardware in pelvis Post-op diagnosis: same Procedure done: Removal of deep hardware from pelvis. Surgeon: Otto Cabral DO Estimated blood loss (mL): 5 Procedure: Removal of hardware deep from pelvis. Patient brought the operative suite after an undergoing anesthesia was placed in the prone position. All areas impingement well-padded. Patient's prepped draped in also fashion. Skin skin is made using the distal aspect of the previous skin incision. The thoracolumbar fascia was identified. We then retracted over the to the right side skin incision was made over the iliac screw and the alberto. The alberto and screw Identified. Screw Was removed. The alberto was then cut using a metal cutting bur. Wound was irrigated out. The alberto was cut was removed. And then the iliac screw was removed. Next attention was brought to the left screw. The same process was made to the thoracolumbar fascia split over the screw. The screw head was identified and removed. The alberto was then cut using the metal cutting bur. And then the screw was removed. Fluoroscopy ensured that the screw was removed. Wounds were irrigated vancomycin powder was placed in close in layered fashion with 0 Vicryl 2-0 Vicryl Monocryl suture. Sterile dressings were applied patient transferred the PACU in stable condition.
--- NOTE | 2024-08-23 09:30 | ANE.PACU2 ---
Inpatient post-anesthesia follow up: Airway intact: Yes Vital signs: Temperature 97 F Pulse Rate 78 Respiratory Rate 16 Blood Pressure 131/72 Pulse Oximetry 96 Oxygen Delivery Me thod Room Air Oxygen Flow Rate Fraction of Inspir ed Oxygen Hydration adequate: Yes Nausea and vomiting: No Pain level: 1 Mental status: Baseline
== END 2024-08-23 09:31 | disposition home or self-care (01) ==
PROVIDERS: PCP Family Medicine; Visit Provider Orthopaedic Surgery
PROC: (CPT 20680; principal; 2024-08-23 07:00)
DX: T84.84XA Pain due to internal orthopedic prosthetic devices, implants and grafts, initial encounter (principal); K21.9 Gastro-esophageal reflux disease without esophagitis; F17.210 Nicotine dependence, cigarettes, uncomplicated; Z79.899 Other long term (current) drug therapy
CPT/HCPCS: 20680; 72100; 76000; J0131; J0690; J1100; J2371; J2405; J2704; J3370; J3490; J7030

== ENCOUNTER → 2024-09-16 14:12 | Outpatient (BNVA) | payer MEDICARE, MEDICAID, SELFPAY | PROVIDERS: PCP Family Medicine; Visit Provider Orthopaedic Surgery | DX: Z48.89 Encounter for other specified surgical aftercare (principal) | CPT/HCPCS: 99024 ==

== ENCOUNTER → 2024-10-12 08:39 | Outpatient (BNVA) | payer MEDICARE, MEDICAID, SELFPAY | PROVIDERS: PCP Family Medicine; Visit Provider Orthopaedic Surgery | DX: M54.9 Dorsalgia, unspecified (principal); M43.26 Fusion of spine, lumbar region | CPT/HCPCS: 72100; 99024 ==

== ENCOUNTER → 2024-12-07 15:41 | Outpatient (BNVA) | payer OTHER, MEDICAID, SELFPAY | PROVIDERS: PCP Family Medicine; Visit Provider Orthopaedic Surgery | DX: M54.9 Dorsalgia, unspecified (principal) | CPT/HCPCS: 72100 ==

== ENCOUNTER → 2025-03-15 15:10 | Outpatient (BNVA) | payer OTHER, MEDICAID, SELFPAY | PROVIDERS: PCP Family Medicine; Visit Provider Orthopaedic Surgery | DX: M43.26 Fusion of spine, lumbar region (principal); Z98.1 Arthrodesis status | CPT/HCPCS: 72100 ==

== ENCOUNTER 2025-03-24 07:12 | Outpatient (CLI) | payer OTHER, MEDICAID, SELFPAY ==
--- NOTE | 2025-03-24 07:30 | CT_ITS ---
WS: [id number] CT LUMBAR SPINE, noncontrast. HISTORY: Back Pain, prior lumbar surgery August 2024. TECHNIQUE: Contiguous 2.0 mm axial imaging are performed. Sagittal and coronal reformats are submitted and reviewed. All CT scans at [facility] use at least one of these dose optimization techniques: automated exposure control; mA and/or kV adjustment per patient size (includes targeted exams where dose is matched to clinical indication); or iterative reconstruction. IV contrast: None DLP: 1168.70 mGy.cm COMPARISON: 11/20/2023, radiograph 03/15/2025 Long LEFT curvature lumbar spine with increase in lordosis. Posterior thoracolumbar fusion extends from T11-S2. Bilateral pedicle screws at each level. No hardware fracture. The vertical rods appear intact. There is significant lucency surrounding the pedicle screws bilaterally at S1. Additional lucency surrounding the pedicle screws at L5 but to a lesser degree. The remaining pedicle screws appear well seated with no evidence for loosening. Bilateral iliac screws crossing the SI joints with mild loosening on the LEFT. There are additional tracks suggesting prior screws have been removed from the sacrum. L1-2: Slight retrolisthesis of L1. No stenosis. L2-3: Large posterior laminectomy defect. No stenosis. L3-4: Mild disc bulging. Large posterior laminectomy defect. L4-5: Large posterior laminectomy defect. Asymmetric disc bulging. L5-S1: Large posterior laminectomy defect. Disc is difficult to the evaluate due to hardware artifact. Atherosclerosis visualized abdominal aorta. CT/CT lumbar spine wo con* [id number] IMPRESSION: 1. Status post posterior thoracolumbar fusion from T11-S2. 2. Lucency surrounding the bilateral pedicle screws at L5 and S1. Much greater lucency surrounding the S1 pedicle screws. 3. Large posterior laminectomy defects from L2-L5. 4. Very slight perihardware lucency surrounding the LEFT iliac screw.
== END 2025-03-24 07:13 | disposition home or self-care (01) ==
LOC: RAD 07:13
PROVIDERS: PCP Family Medicine; Visit Provider Orthopaedic Surgery
DX: M47.816 Spondylosis without myelopathy or radiculopathy, lumbar region (principal); M43.25 Fusion of spine, thoracolumbar region; Z98.1 Arthrodesis status; T84.89XA Other specified complication of internal orthopedic prosthetic devices, implants and grafts, initial encounter; X58.XXXA Exposure to other specified factors, initial encounter; M96.1 Postlaminectomy syndrome, not elsewhere classified; M51.360 Other intervertebral disc degeneration, lumbar region with discogenic back pain only
CPT/HCPCS: 72131

== ENCOUNTER → 2025-03-29 15:15 | Outpatient (BNVA) | payer OTHER, MEDICAID, SELFPAY | PROVIDERS: PCP Family Medicine; Visit Provider Orthopaedic Surgery | DX: M48.062 Spinal stenosis, lumbar region with neurogenic claudication (principal); T84.84XA Pain due to internal orthopedic prosthetic devices, implants and grafts, initial encounter; X58.XXXA Exposure to other specified factors, initial encounter; Z09 Encounter for follow-up examination after completed treatment for conditions other than malignant neoplasm | CPT/HCPCS: 99214 ==

== ENCOUNTER 2025-03-30 08:25 | Outpatient (CLI) | payer OTHER, MEDICAID, SELFPAY ==
[2025-03-30 09:08] LABS: Hematocrit 38.4 % (36-47); Hemoglobin 12.60 g/dL (11.27-16.99); Mean Corpuscular HGB Conc 32.8 g/dL (30-55); Mean Corpuscular Hemoglobin 30.4 pg (27-33); Mean Corpuscular Volume 92.5 fl (85-98); Nucleated Red Blood Cells % 0 %; Platelet Count 211 10^3/cmm (157-399); Red Blood Count 4.15 10^6/uL (3.85-5.65); White Blood Count 6.86 10^3/uL (3.29-11.43)
[2025-03-30 09:17] LABS: Glucose Urine UA Negative (Normal); Nitrate Urine Positive (Negative); Specific Gravity, Urine 1.024 (1.005-1.030)
[2025-03-30 09:21] LABS: Add Urine Microscopic? YES
[2025-03-30 09:25] LABS: Alanine Aminotransferase 18 U/L (0-33); Albumin Level 4.1 g/dL (3.5-5.2); Alkaline Phosphatase 128 U/L (35-105); Anion Gap 14.7 (5-19); Aspartate Amino Transferase 13 U/L (0-32); Blood Urea Nitrogen 9 mg/dL (8-23); Calcium 9.1 mg/dL (8.5-10.5); Carbon Dioxide 25 mmol/L (22-29); Chloride 105 mmol/L (98-107); Globulin 3.0 g/dL (1.3-4.6); Glucose 140 mg/dL (65-115); Osmolality Calculated 293 mOsm/kg (285-295); Potassium 3.7 mmol/L (3.5-5.1); Sodium 141 mmol/L (136-145); Total Protein 7.1 g/dL (6.6-8.7)
[2025-03-30 09:32] LABS: UA Slide Review UA Slide Review Perf
== END 2025-03-30 08:26 | disposition home or self-care (01) ==
LOC: LAB 08:28
PROVIDERS: PCP Family Medicine; Visit Provider Orthopaedic Surgery
DX: M48.062 Spinal stenosis, lumbar region with neurogenic claudication (principal)
CPT/HCPCS: 36415; 80053; 81001; 85025; 87077; 87086; 87186

== ENCOUNTER 2025-04-08 14:58 | Outpatient (CLI) | payer OTHER, MEDICAID, SELFPAY ==
[2025-04-08 15:32] LABS: Glucose Urine UA Negative (Normal); Nitrate Urine Negative (Negative); Specific Gravity, Urine 1.020 (1.005-1.030)
[2025-04-08 15:36] LABS: Add Urine Microscopic? YES
== END 2025-04-08 14:59 | disposition home or self-care (01) ==
LOC: LAB 15:01
PROVIDERS: PCP Family Medicine; Visit Provider Orthopaedic Surgery
DX: Z01.89 Encounter for other specified special examinations (principal)
CPT/HCPCS: 81001

== ENCOUNTER 2025-04-13 15:22 | Inpatient (IN) | payer OTHER, MEDICAID, SELFPAY ==
[2025-04-13] VITALS (15 sets, daily range): BP systolic 140–161; BP diastolic 58–94; PULSE 74–95; RESP 16–20; TEMP 36.3–36.7; O2SAT 90–99; BMI 40.2
--- NOTE | 2025-04-13 06:31 | XR_ITS ---
WS: [id number] Exam: XR lumbar spine 1V port [id number] Date/Time of Exam: 04/13/2025 6:31 AM Reason For Exam: or pic, hardware removal Intraoperative AP C-arm images of the lumbar spine are submitted. Images confirm removal of rods and pedicle screws from the lower thoracic and lumbar spine.
--- NOTE | 2025-04-13 12:29 | W.PM.OPSUD ---
Surgery/Procedure H&P Update DATE OF PROCEDURE: April 13, 2025 DATE H&P PERFORMED: 03/29/25 H&P UPDATE INFORMATION: I have reviewed H&P completed within last 30 days, I have examined patient prior to procedure and No changes to prior documentation PREOP DIAGNOSIS: Painful orthopedic hardware PLANNED PROCEDURE: Operation Date: 04/13/25 14:00 Proposed Procedures p Hardware Removal Back T11, L5/S1 screws(Not Applicable) - Otto Cabral, DO
--- NOTE | 2025-04-13 12:31 | ANES.PREANE2 ---
Pre-Anesthetic Assessment Height/Weight: Height 1.52 m Temp Pulse Resp BP Pulse Ox O2 Del Method 97.6 F 74 18 141/90 94 Room Air 04/13/25 12:05 04/13/25 12:05 04/13/25 12:05 04/13/25 12:05 04/13/25 12:05 04/13/25 12:05 Preop Diagnosis: Painful orthopedic hardware Operation Date: 04/13/25 14:00 Proposed Procedures p Hardware Removal Back T11, L5/S1 screws(Not Applicable) - Otto Cabral, Familial anesthetic complications: experienced post op resp failure Was Beta Patricia taken within 24 hours: N/A Was Clonidine taken within 24 hours: N/A Last intake: Intake Last Liquid Date 04/12/25 Last Liquid Time 23:30 Last Solid Date 04/12/25 Last Solid Time 19:00 Social Tobacco and No alcohol Exam alert, oriented x 3, clear to auscultation bilaterally and regular rate & rhythm Airway Mallampati: Class II Dentition: full GI Gastroesophageal Reflux Disease Anesthetic Plan ASA status: 3 Anesthesia: General Risk of > 500 ml blood loss (7ml/kg in children): No Medications/Allergies Home Medications ?Medication ?Instructions ?Recorded ?Confirmed ?Last Taken ?Type fluticasone propionate 44 2 puff inhalation BID PRN 09/14/19 04/13/25 04/12/25 History mcg/actuation HFA aerosol inhaler Shortness Of Breath Or Wheezing (Flovent HFA) gabapentin 600 mg tablet 600 mg PO BID PRN UNKNOWN 10/19/19 04/13/25 04/13/25 History duloxetine 60 mg capsule,delayed 60 mg PO DAILY #30 caps 10/20/19 04/13/25 04/13/25 Rx release (Cymbalta) brexpiprazole 2 mg tablet (Rexulti) 2 mg PO DAILY 07/05/22 04/13/25 04/13/25 History montelukast 10 mg tablet 10 mg PO DAILY 07/05/22 04/13/25 04/13/25 History pantoprazole 40 mg tablet,delayed 40 mg PO BID 07/05/22 04/13/25 04/12/25 History release Bone Growth Stimulator E0748 #1 ea 07/30/22 03/29/25 Unknown Rx TLSO Brace #1 ea 09/24/22 03/29/25 Unknown Rx hydrocodone 10 mg-acetaminophen 1 tab PO Q4H PRN pain 30 days #180 03/31/25 04/13/25 04/13/25 Rx 325 mg tablet tabs baclofen 20 mg tablet 20 mg PO DAILY PRN muscle relaxer 04/12/25 04/13/25 04/08/25 History clonazepam 0.5 mg tablet 0.5 mg PO BID 04/12/25 04/13/25 04/13/25 History fluticasone fur. 200 mcg-umeclid 1 inh inhalation DAILY 04/12/25 04/13/25 04/12/25 History 62.5 mcg-vilant 25 mcg inhalat.powder (Trelegy Ellipta) lamotrigine 100 mg tablet 50 mg PO DAILY 04/12/25 04/13/25 04/13/25 History Allergies Allergy/AdvReac Type Severity Reaction Status Date / Time No Known Allergies Allergy Verified 04/13/25 12:08 [facility] Anesthesia Medical History Degenerative disc disease Cannabis use disorder, mild, abuse Post-traumatic stress disorder, chronic Major depressive disorder, recurrent severe without psychotic features Generalized anxiety disorder Social History Smoking and tobacco/nicotine status: current every day tobacco/nicotine user cigarettes Packs smoked per day: 1 Years cigarettes smoked: 25 Quit status (tobacco/nicotine): has tried quititng Number of times tried to quit tobacco: 1 Alcohol intake: former Substance/Drug Use: current Substance/Drug use frequency: daily Current gender identity: Female Data Anesthesia Cardiac Studies: Echocardiogram 07/05/22
[2025-04-13] MEDS: ceFAZolin 2,000 mg SDV 2000 MG IVP (12:57)
[2025-04-13] MEDS: lidocaine-epi 1% 20 mL INJ 10 ML INJECTION (13:30)
--- NOTE | 2025-04-13 14:33 | PM.DCS ---
Discharge Providers Date of Admission: 04/13/2025 Date of Discharge: April 13, 2025 Attending Provider at Discharge: Otto Cabral DO Primary Care Provider: Alberto Davenport MD Reason for Visit Reason for Visit: T84.84XA Discharge Data Studies Completed and Pending Pending at discharge Category Date Time Status C-arm Fluoroscopy [id number] Routine Exams 04/13/25 11:45 Ordered Vitals Last Vital Signs Temp 97.6 F 04/13/25 12:05 Pulse 74 04/13/25 12:05 Resp 18 04/13/25 12:05 BP 141/90 04/13/25 12:05 Pulse Ox 94 04/13/25 12:05 O2 Del Method Room Air 04/13/25 12:05 Discharge Plan Discharge Patient Disposition: Home Condition: Stable Prescriptions: No Action Flovent HFA 44 mcg/actuation HFA aerosol inhaler 2 puff INHALATION BID PRN (Reason: Shortness Of Breath Or Wheezing) gabapentin 600 mg tablet 600 mg PO BID PRN (Reason: UNKNOWN) duloxetine [Cymbalta] 60 mg capsule,delayed release(DR/EC) 60 mg PO DAILY Qty: 30 2RF (DME) Bone Growth Stimulator E0748 See Rx Instructions .Route .MEDSUPPLY Qty: 1 0RF Rx Instructions: As directed (DME) TLSO Brace See Rx Instructions .Route .MEDSUPPLY Qty: 1 0RF Rx Instructions: As directed baclofen 20 mg tablet 20 mg PO DAILY PRN (Reason: muscle relaxer ) clonazepam 0.5 mg tablet 0.5 mg PO BID lamotrigine 100 mg tablet 50 mg PO DAILY hydrocodone-acetaminophen 10-325 mg tablet 1 tab PO Q4H MDD 6 PRN (Reason: pain) 30 Days Qty: 180 0RF pantoprazole 40 mg tablet,delayed release (DR/EC) 40 mg PO BID montelukast 10 mg tablet 10 mg PO DAILY Rexulti 2 mg tablet 2 mg PO DAILY Trelegy Ellipta 200-62.5-25 mcg Blister With Device 1 inh INHALATION DAILY Patient Instructions: Acute Wound Care (DC), Post Anesthesia Care Print Language: Latvian Discharge Attestations Time Spent in Discharge Care*: less than 30 min Quality Metrics Clinical Quality Measures [ No reported AMI, CVA or VTE this stay] Coding Level of Care Code Acute Code for Chg Fwd
--- NOTE | 2025-04-13 14:37 | PM.OP ---
Operative Report Date of procedure: April 13, 2025 Pre-op diagnosis: Painful orthopedic hardware lumbar spine Post-op diagnosis: same Procedure done: Removal of deep hardware from thoracolumbar spine Surgeon: Otto Cabral DO Estimated blood loss (mL): 25 Procedure: Removal of deep hardware from thoracolumbar spine Patient is brought to the operative suite after undergoing anesthesia patient was placed in the prone position. All areas impingement well-padded. Patient was prepped and draped in sterile fashion. Skin incision was made using the previous skin incision. Hardware was identified first and the right side. The screw caps were identified this was done from T11 down to S1. 8 screws were removed from the right side. This was done removing the screw caps followed by the rods followed by each the screws. Wounds were irrigated. Next 10 was brought to the left side same procedure was done the [place] approach was used the screw caps were removed the rods were removed and then the screws were removed. AP lateral fluoroscopy ensured that the hardware was removed. Wounds were irrigated and closed in layered fashion thoracolumbar fascia was closed with 0 Vicryl and skin was closed with 0 Vicryl 2-0 Vicryl and Monocryl suture. Sterile dressings were applied and patient transferred to the PACU in stable condition.
[2025-04-13] MEDS: fentaNYL 50 mcg/mL INJ 2mL IVP (15:40)
--- NOTE | 2025-04-13 15:42 | ANE.PACU2 ---
Inpatient post-anesthesia follow up: Airway intact: Yes Vital signs: Temperature 97.4 F Pulse Rate 89 Respiratory Rate 18 Blood Pressure 160/85 Pulse Oximetry 93 Oxygen Delivery Me thod Room Air Oxygen Flow Rate 10 Fraction of Inspir ed Oxygen Hydration adequate: Yes Nausea and vomiting: No Pain level: 1 Mental status: Baseline
== END 2025-04-13 16:45 | disposition home or self-care (01) | DRG 496 ==
LOC: MEDSURG 15:23
PROVIDERS: Admitting Provider Orthopaedic Surgery; PCP Family Medicine; Visit Provider Orthopaedic Surgery
PROC: 0PP404Z Removal of Internal Fixation Device from Thoracic Vertebra, Open Approach (ICD-10-PCS; principal; 2025-04-13 13:40)
DX: T84.84XA Pain due to internal orthopedic prosthetic devices, implants and grafts, initial encounter (principal); F33.2 Major depressive disorder, recurrent severe without psychotic features; Y79.8 Miscellaneous orthopedic devices associated with adverse incidents, not elsewhere classified; F12.10 Cannabis abuse, uncomplicated; F43.12 Post-traumatic stress disorder, chronic; F41.1 Generalized anxiety disorder; F17.210 Nicotine dependence, cigarettes, uncomplicated; K21.9 Gastro-esophageal reflux disease without esophagitis; Z79.51 Long term (current) use of inhaled steroids; Z79.891 Long term (current) use of opiate analgesic
CPT/HCPCS: 72020; 76000; A7003; A7015; J0131; J0690; J1100; J2405; J2704; J3010; J3373; J3490; J3535; J7030; J9999

== ENCOUNTER → 2025-04-21 08:55 | Outpatient (BNVA) | payer OTHER, MEDICAID, SELFPAY | PROVIDERS: PCP Family Medicine; Visit Provider Orthopaedic Surgery | DX: M43.20 Fusion of spine, site unspecified (principal); Z98.890 Other specified postprocedural states | CPT/HCPCS: 99024 ==

== ENCOUNTER → 2025-04-28 08:19 | Outpatient (BNVA) | payer OTHER, MEDICAID, SELFPAY | PROVIDERS: PCP Family Medicine; Visit Provider Orthopaedic Surgery | DX: Z98.890 Other specified postprocedural states (principal); Z46.89 Encounter for fitting and adjustment of other specified devices | CPT/HCPCS: 99024 ==

== ENCOUNTER → 2025-05-24 15:18 | Outpatient (BNVA) | payer OTHER, MEDICAID, SELFPAY | PROVIDERS: PCP Family Medicine; Visit Provider Orthopaedic Surgery | DX: M54.9 Dorsalgia, unspecified (principal); M48.062 Spinal stenosis, lumbar region with neurogenic claudication; M25.559 Pain in unspecified hip; W19.XXXA Unspecified fall, initial encounter; Z98.890 Other specified postprocedural states; Z98.1 Arthrodesis status | CPT/HCPCS: 72100; 73523; 99024 ==

== ENCOUNTER 2025-05-25 15:58 | Outpatient (CLI) | payer OTHER, MEDICAID, SELFPAY ==
--- NOTE | 2025-05-25 16:00 | MR_ITS ---
WS: [id number] MRI LUMBAR SPINE NONCONTRAST HISTORY: back pain, status post fall 08/2024. Postop 04/13/2025 COMPARISON: 01/25/2022 TECHNIQUE: Sagittal and axial multisequence imaging is submitted. Straightening of the cervical and thoracic spines. Hemangioma at T4. Mild anterior wedging of T10, T11 and T12. Hardware removal tracts are identified from T11-L5. Moderate LEFT curvature lumbar spine. L4 anterolisthesis by 7.7 mm. 4 mm retrolisthesis of L1. Disc spaces are narrowed and desiccated. Conus terminates normally at L1. L1-L2: Slight retrolisthesis of L1 with annular disc bulging and osteophytosis. Bilateral facet arthritis. Central disc protrusion. Mild to moderate central, subarticular recess and foraminal stenosis. L2-L3: Diffuse disc bulging with osteophytosis and facet arthritis. Mild foraminal stenosis. L3-L4: Osteophytic ridging. Large laminectomy defect. Facet joint arthropathy. No high-grade stenosis. L4-L5: Annular disc bulging with osteophytosis. Large laminectomy defect. Patulous thecal sac moderate LEFT foraminal stenosis due to disc disease and facet arthritis. Postoperative changes are also present. Moderate bilateral foraminal stenosis. L5-S1: Patulous thecal sac. No central stenosis. Facet joint arthritis. Moderate foraminal stenosis. There is a large complex but well organized fluid collection in the posterior subcu soft tissues. This collection extends over a length of 20 cm and transversely by 9 cm. Fluid collection extends from T11-S1. Probably a postoperative seroma. With recent surgery CSF leak should be considered. There is a small fluid tract extending along the LEFT lateral postoperative space at the L3-4 level which is contiguous with the larger collection. Soft tissue muscle edema and atrophy. MR/MR lumbar spine wo con* [id number] IMPRESSION: 1. There is a large fluid collection in the subcu soft tissues measuring 20 cm in length by 9 cm transversely. Collection begins at T11 and extends S1. With recent surgery this may be a postoperative seroma or resolving hematoma. CSF le ak may appear similar. There is a fluid tract extending from the LEFT L3-4 post operative space to the large collection. 2. Extensive recent hardware removal from T11-L5 with residual tracts. 3. No evidence for acute fracture. 4. Degenerative scoliosis and disc space narrowing and marked facet arthritis. 5. Mild to moderate central, subarticular recess and foraminal stenosis at L1- 2. 6. Moderate bilateral foraminal stenosis at L4-5 due to combination of factors . Central thecal sac is now patulous. No central stenosis. 7. Moderate bilateral foraminal stenosis at L5-S1.
== END 2025-05-25 15:59 | disposition home or self-care (01) ==
LOC: RAD 15:59
PROVIDERS: PCP Family Medicine; Visit Provider Orthopaedic Surgery
DX: M48.062 Spinal stenosis, lumbar region with neurogenic claudication (principal); G96.09 Other spinal cerebrospinal fluid leak; L76.32 Postprocedural hematoma of skin and subcutaneous tissue following other procedure; M48.07 Spinal stenosis, lumbosacral region; M41.86 Other forms of scoliosis, lumbar region; M25.78 Osteophyte, vertebrae; M47.817 Spondylosis without myelopathy or radiculopathy, lumbosacral region
CPT/HCPCS: 72148

== ENCOUNTER → 2025-05-31 08:07 | Outpatient (BNVA) | payer OTHER, MEDICAID, SELFPAY | PROVIDERS: PCP Family Medicine; Visit Provider Orthopaedic Surgery | DX: Z98.890 Other specified postprocedural states (principal) | CPT/HCPCS: 99024 ==

== ENCOUNTER 2025-06-20 06:30 | Outpatient (RCR) | payer OTHER, MEDICAID, SELFPAY | END 2025-07-20 23:59 | disposition home or self-care (01) | LOC: SPT 06:30 | PROVIDERS: PCP Family Medicine; Visit Provider Orthopaedic Surgery | DX: M47.26 Other spondylosis with radiculopathy, lumbar region (principal); M48.062 Spinal stenosis, lumbar region with neurogenic claudication; M47.816 Spondylosis without myelopathy or radiculopathy, lumbar region | CPT/HCPCS: 97110; 97161 ==